=== PATIENT | female | born 1945 | race Caucasian/White ===

== ENCOUNTER 2020-05-13 08:59 | Emergency (ER) | payer MEDICARE, OTHER, SELFPAY ==
[2020-05-13] VITALS (9 sets, daily range): BP systolic 170–220; BP diastolic 78–115; PULSE 64–92; RESP 13–24; TEMP 36.5; O2SAT 91–96; BMI 27.8
--- NOTE | 2020-05-13 09:25 | PC.NURSE ---
Pt reports stroke with right side deficits 10-12 years ago, reports asymmetry of smile and pupils unequal size is baseline for her since.
--- NOTE | 2020-05-13 09:54 | ED_ITS ---
HPI - Seizure General Chief Complaint: Seizure Stated Complaint: Seizure Time Seen by Provider: 05/13/20 09:36 Source: patient and EMS Mode of arrival: EMS Limitations: no limitations History of Present Illness HPI Narrative: CC: Seizure HPI: The patient is a 75-year-old female who was admitted to the [facility] use she had a seizure at home. The patient was sitting on the edge of her bed when she had a seizure. The seizure was a tonic colonic seizure. The duration was only a couple of minutes. The patient did not fall onto the floor out of the bed. The patient states that she was sitting up ready to eat a banana and drink her coffee arm when she had the seizure. She felt it coming on. She states that she passed out. She had a seizure 1 and half weeks ago. She states that she never before had seizures until she had a stroke 13 years ago. She is on warfarin and lamotrigine. She does not have a headache or head injury. The patient states that she is paralyzed on the right side. She has had no nausea or vomiting. She takes warfarin for her stroke. She denies any chest pain or discomfort at this time. However she has a chronic pain syndrome. She is on Vicodin for a fall injuring her face in breaking her teeth. Her seizures are [place] in nature. The patient denies a history of asthma COPD myocardial infarction but admits to history of seizures stroke hypertension and diabetes mellitus. She states that she is a former smoker she rarely drinks alcohol and does not use any marijuana products. Related Data Home Medications Medication Instructions Recorded Confirmed methocarbamol PRN PRN #0 01/29/13 lamotrigine [Lamictal] 25 mg PO Q DAY #0 02/01/13 Fluoxetine Hydrochloride 20 mg PO #0 05/16/13 (FLUOXETINE) atenolol 100 mg PO #0 05/16/13 gabapentin [Neurontin] 300 mg PO #0 05/16/13 hydrocodone-acetaminophen [Vicodin #0 05/16/13 HP] insulin NPH and regular human 25 u SQ #0 05/16/13 [Novolin 70/30 U-100 Insulin] lisinopril 5 mg PO #0 05/16/13 metoprolol tartrate 25 mg PO #0 05/16/13 nitroglycerin [Nitrostat] 0.4 mg SUBLINGUAL PRN #0 05/16/13 tamsulosin [Flomax] 0.4 mg PO QDAY #0 05/16/13 triazolam [Halcion] 0.25 mg PO HS #0 05/16/13 warfarin [Coumadin] 5 mg PO #0 05/16/13 Previous Rx's Medication Instructions Recorded sulfamethoxazole-trimethoprim 1 tab PO BID #20 tab 01/04/17 cefdinir 300 mg PO BID #14 cap 05/13/20 ibuprofen 600 mg PO QID PRN #20 tab 05/13/20 lamotrigine 50 mg PO BID 14 Days #56 tab 05/13/20 Allergies Allergy/AdvReac Type Severity Reaction Status Date / Time Penicillins [PENICILLINS] Allergy Unknown Verified 05/13/20 10:26 Review of Systems Review of Systems Narrative: REVIEW OF SYSTEMS: CONSTITUTIONAL: The patient denies any fever chills or sweats. NEUROLOGICAL: She is has right hemiparesis secondary to her stroke but denies any headache. EENT: She has had no change in vision loss of vision or diplopia. She has had no sore throat difficulty in swallowing or dysphagia. CARDIO-PULMONARY: She denies any chest pain palpitations dizziness shortness of breath or cough. GASTROINTESTINAL: She denies any nausea vomiting diarrhea abdominal pain. GENITAL URINARY: She has had no urinary symptoms. MUSCULOSKELETAL/ RHEUMATOLOGICAL: She denies any back pain more than usual. Patient History Social History Smoking Status: Current every day smoker Smoking Status: Current every day smoker alcohol intake frequency: holidays/special occasions only Substance Use Type: does not use Exam Narrative Exam Narrative: PHYSICAL EXAM: CONSTITUTIONAL: Awake, Alert, Oriented, Coherent, Cooperative in NAD. Does not appear toxic or ill. Initially she appeared to be postictal which cleared and became much more awake alert and cooperative. HEAD: AT/NC EENT: PERRL, FROM of eyes, no discharge, no nystagmus EARS:No drainage from the ears, NOSE:No epistaxis or nasal drainage MOUTH:Oral mucosa is moist and pink, patient has multiple fractured and carious teeth anterior in her upper jaw. NECK: Supple, no obvious JVD, Trachea is midline without stridor, no palpable LN. SPINE: Palpationof the cervical, Thoracic, Lumbar or Sacral spine reveals no gross deformity or tenderness. No CVA tenderness. THORAX: No deformity, retractions, chest wall tenderness. LUNGS: Clear, symmetrical breath sounds without respiratory distress. HEART: Normal heart tones, irregular rhythmn and rate without murmur. ABDOMEN: Soft, non-tender, without guarding, rebound, rigidity or palpable mass. EXTREMITIES: No edema, deformity, tenderness or cyanosis. No swelling or deformity of either the right or left knee. The patient has an abrasion over the dorsal left foot over her middle left toes. SKIN: No rash, bruising, petechiae or purpura. NEURO: Awake, alert, oriented, conversive, cranial nerves II-XII are symmetrical , the patient has increased tone with decreased movement of her right arm with clenching and spasticity of her right hand and fist. The patient has increased tone in her right leg but does not move her leg. The patient has right hem iparesis secondary to her previous stroke. Initial Vital Signs Initial Vital Signs: Vital Signs Temperature 97.7 F 05/13/20 09:13 Pulse Rate 92 H 05/13/20 09:13 Respiratory Rate 14 05/13/20 09:13 Blood Pressure 184/81 H 05/13/20 09:13 Pulse Oximetry 91 05/13/20 09:13 Course Course Course Narrative: 1059: The patient's is now in the room with the patient. He states that her last seizure was 3 weeks ago. The patient is much more awake and alert at this time. She denies any headache. She states that she might have a urinary tract infection. 1131: The patient's lactic acid and urinalysis do not appear in the printout. Her chest x-ray is limited but does not reveal any acute cardiopulmonary pathology. The patient's med list listed that she is on Lamotrigine 25 mg once a day. I explained to the patient that the plan is to double that dose and see whether not a cuts down on her seizures. Everything else is coming back negative and it appears as though she has had a breakthrough seizure. Her urine is being checked for an acute urinary tract infection. 1223: The patient's point of care urinalysis does not show up in my chart under Nurse/ Allied Health. 1355: just obtained a urine. Urine drug screen is positive for opiates and positive for leukocyte esterase and numerous leukocytes. The patient will be treated as though she has an acute urinary tract infection. xray does not reveal any fractures but also T a P knee a an all stool processes. 1607: Discharging the patient with the Tello lift the patient was screaming with pain and discomfort. According to the patient and her she has chronic pain syndrome and is on a chronic pain regimen. The patient was now moving her complaining of pain in her left knee. The patient hold both knees flexed without difficulty. There is no gross swelling or bruising of either knees. Both knees were wrapped with an Tony wrap. She denies any fall injury to her knees. Orders Ordered: ED Orders 05/13/20 13:19 XR knee LT 3V Stat 05/13/20 13:30 Urinalysis and Microscopic Stat Urine Culture Stat Urine Drug Screen, Rapid Stat Discontinued Medications Bacitracin (Bacitracin) 1 applic TOP NOW ONE Stop: 05/13/20 11:34 Last Admin: 05/13/20 12:13 Dose: 1 applic Documented by: MARCELINO Cefdinir (Omnicef) 300 mg PO NOW ONE Stop: 05/13/20 14:00 Last Admin: 05/13/20 14:16 Dose: 300 mg Documented by: LUCRETIA Lamotrigine (Lamictal) 50 mg PO NOW ONE Stop: 05/13/20 14:01 Last Admin: 05/13/20 14:16 Dose: 50 mg Documented by: LUCRETIA Lorazepam (Ativan) 0.5 mg IV NOW ONE Stop: 05/13/20 09:58 Last Admin: 05/13/20 10:28 Dose: 0.5 mg Documented by: LUCRETIA Morphine Sulfate (Morphine) 2 mg IV NOW ONE Stop: 05/13/20 15:10 Last Admin: 05/13/20 15:13 Dose: 2 mg Documented by: LUCRETIA Vital Signs Vital signs: Vital Signs - 8 hr 05/13/20 13:11 05/13/20 13:46 05/13/20 15:19 Pulse Rate 75 72 74 Respiratory Rate 22 13 20 Blood Pressure [Left Arm] 195/80 H 220/91 H 194/98 H Pulse Oximetry 96 96 96 MDM - Seizure Medical Records Attestation: I reviewed the patient's medical records. Lab Data Attestation: I reviewed the patient's lab results. Result diagrams: 05/13/20 10:00 05/13/20 10:00 Labs: Lab Results 05/13/20 05/13/20 05/13/20 Range/Units 10:00 10:00 10:00 WBC 6.4 (4.5-11.0) X10^3/uL RBC 4.49 (4.0-5.2) X10^6/uL Hgb 13.0 (12.0-16.0) g/dL Hct 38.2 (36-46) % MCV 85.0 (80-100) fL MCH 28.9 (26-34) PG MCHC 34.0 (30-36) % RDW 14.6 (11.6-14.8) % Plt Count 263 (150-400) X10^3/uL Neut % (Auto) 79.8 H (50-75) % Lymph % (Auto) 13.8 L (25-40) % [place] % (Auto) 4.7 (3-14) % Eos % (Auto) 1.1 L (2-4) % Baso % (Auto) 0.6 (0-2) % Neut # (Auto) 5100 (8302-1368) /uL Lymph # (Auto) 900 L (4479-2637) /uL [place] # (Auto) 300 (0-900) /uL Eos # (Auto) 100 (0-450) /uL Baso # (Auto) 0 (0-100) /uL Sodium 138 (137-145) mmol/L Potassium 4.7 (3.4-5.1) mmol/L Chloride 100 (98-107) mmol/L Carbon Dioxide 31 (22-32) mmol/L BUN 25 H (7-17) mg/dL Creatinine 1.18 H (0.52-1.04) mg/dL Estimated GFR 44.9 L (>60) mL/min BUN/Creatinine Ratio 21.2 (6-22) Glucose 208 H (80-110) mg/dL Lactate (0.7-2.1) mmol/L Calcium 9.2 (8.4-10.2) mg/dL Magnesium 1.9 (1.6-2.3) mg/dL Total Bilirubin 0.7 (0.2-1.3) mg/dL Conjugated Bilirubin 0.0 (0.0-0.3) md/dL Unconjugated Bilirubin 0.6 (0.0-1.1) mg/dL AST 26 (14-36) IU/L ALT 21 (<35) IU/L Alkaline Phosphatase 135 H (38-126) U/L Lactate Dehydrogenase 505 (313-618) U/L Total Protein 7.3 (6.3-8.2) g/dL Albumin 4.1 (3.5-5.0) g/dL Globulin 3.2 (1.7-4.1) g/dL Albumin/Globulin Ratio 1.3 (1.0-2.8) Lipase 10 L (23-300) U/L Prolactin 25.6 H (3.0-18.6) ng/mL Urine Color Urine Appearance Urine pH (4.5-8.0) Ur Specific [place] (1.000-1.035) Urine Protein (Negative) Urine Glucose (UA) (Negative) g/dL Urine Ketones (NEGATIVE) Urine Occult Blood (Negative) Urine Nitrate (Negative) Urine Bilirubin (NEGATIVE) Urine Urobilinogen (0.2) E.U./dL Ur Leukocyte Esterase (NEGATIVE) Urine RBC (0-5/HPF) Urine WBC (0-5/HPF) Ur Squamous Epith Cells (0-5/HPF) Urine Bacteria (None) Ur Culture Indicated? U Opiates 300ng/mL cut (Negative) Ur Oxycodone Screen (Negative) Urine Methadone Screen (Negative) Ur Barbiturates Screen (Negative) U Tricyclic Antidepress (Negative) Ur Phencyclidine Scrn (Negative) Ur Amphetamines Screen (Negative) U Methamphetamines Scrn (Negative) Ur MDMA Scrn (Ecstasy) (Negative) U Benzodiazepines Scrn (Negative) Urine Cocaine Screen (Negative) U Marijuana (THC) Screen (Negative) 05/13/20 05/13/20 05/13/20 Range/Units 10:00 13:30 13:30 WBC (4.5-11.0) X10^3/uL RBC (4.0-5.2) X10^6/uL Hgb (12.0-16.0) g/dL Hct (36-46) % MCV (80-100) fL MCH (26-34) PG MCHC (30-36) % RDW (11.6-14.8) % Plt Count (150-400) X10^3/uL Neut % (Auto) (50-75) % Lymph % (Auto) (25-40) % [place] % (Auto) (3-14) % Eos % (Auto) (2-4) % Baso % (Auto) (0-2) % Neut # (Auto) (6590-1971) /uL Lymph # (Auto) (2004-4849) /uL [place] # (Auto) (0-900) /uL Eos # (Auto) (0-450) /uL Baso # (Auto) (0-100) /uL Sodium (137-145) mmol/L Potassium (3.4-5.1) mmol/L Chloride (98-107) mmol/L Carbon Dioxide (22-32) mmol/L BUN (7-17) mg/dL Creatinine (0.52-1.04) mg/dL Estimated GFR (>60) mL/min BUN/Creatinine Ratio (6-22) Glucose (80-110) mg/dL Lactate 1.7 (0.7-2.1) mmol/L Calcium (8.4-10.2) mg/dL Magnesium (1.6-2.3) mg/dL Total Bilirubin (0.2-1.3) mg/dL Conjugated Bilirubin (0.0-0.3) md/dL Unconjugated Bilirubin (0.0-1.1) mg/dL AST (14-36) IU/L ALT (<35) IU/L Alkaline Phosphatase (38-126) U/L Lactate Dehydrogenase (313-618) U/L Total Protein (6.3-8.2) g/dL Albumin (3.5-5.0) g/dL Globulin (1.7-4.1) g/dL Albumin/Globulin Ratio (1.0-2.8) Lipase (23-300) U/L Prolactin (3.0-18.6) ng/mL Urine Color Yellow Urine Appearance Sl cloudy Urine pH 7.0 (4.5-8.0) Ur Specific [place] 1.010 (1.000-1.035) Urine Protein Trace H (Negative) Urine Glucose (UA) Negative (Negative) g/dL Urine Ketones Negative (NEGATIVE) Urine Occult Blood Trace-intact (Negative) Urine Nitrate Negative (Negative) Urine Bilirubin Negative (NEGATIVE) Urine Urobilinogen 0.2 (0.2) E.U./dL Ur Leukocyte Esterase 1+ H (NEGATIVE) Urine RBC 0-1/hpf (0-5/HPF) Urine WBC 30-100/hpf H (0-5/HPF) Ur Squamous Epith Cells 0-1 /hpf (0-5/HPF) Urine Bacteria Many (>30) H (None) Ur Culture Indicated? Specimen cultured U Opiates 300ng/mL cut Positive H (Negative) Ur Oxycodone Screen Negative (Negative) Urine Methadone Screen Negative (Negative) Ur Barbiturates Screen Negative (Negative) U Tricyclic Antidepress Negative (Negative) Ur Phencyclidine Scrn Negative (Negative) Ur Amphetamines Screen Negative (Negative) U Methamphetamines Scrn Negative (Negative) Ur MDMA Scrn (Ecstasy) Negative (Negative) U Benzodiazepines Scrn Negative (Negative) Urine Cocaine Screen Negative (Negative) U Marijuana (THC) Screen Negative (Negative) Point of Care Testing Glucose POC 194 ECG Data Attestation: I personally reviewed and interpreted this ECG as follows: Interpretation: The patient's EKG obtained on May 13 at 9:36 a.m.: Reveals a normal sinus rhythm with a ventricular rate of 83. MO interval is borderline first-degree AV block with 204 milliseconds. The patient's QTC is prolonged at 542 milliseconds left axis deviation. She has left ventricular hypertrophy by voltage criteria. She has a right bundle branch block pattern with her QRS being 154 milliseconds duration. The patient has secondary ST segment changes secondary to the left ventricular hypertrophy. She has ST segment depressions in leads V2 and aVL and I. The patient has slight ST segment elevations nonspecific in leads III and AVF. There are no other acute diagnostic ST segment changes. Discharge Plan Departure Patient Disposition: Home Clinical Impression: Seizure, Knee sprain, bilateral, Chronic pain syndrome UTI (urinary tract infection) Qualifiers: Urinary tract infection type: acute cystitis Hematuria presence: without hematuria Qualified Code(s): N30.00 - Acute cystitis without hematuria Discharge Date/Time: 05/13/20 16:13 Instructions: DI for Seizure Disorder -- Adult Activity Restrictions/Additional Instructions: 1. Follow-up with your primary care physician to monitor your seizures and adjust your medications. 2. Increase your Lamotrigine to 50 mg per day 3. Take cefdinir 300 orally twice a day until gone 4. Return to the ED if you have a recurrent seizure 5. Take the vicodin you have at home for your pain three times per day. Prescriptions: New lamotrigine 25 mg tablet 50 mg PO BID 14 Days Qty: 56 RF: 0 cefdinir 300 mg capsule 300 mg PO BID Qty: 14 RF: 0 ibuprofen 600 mg tablet 600 mg PO QID PRN (Reason: pain) Qty: 20 RF: 0 No Action methocarbamol 500 MG tablet PRN PRNQty: 0 RF: 0 lamotrigine [Lamictal] 25 MG tablet 25 mg PO Q DAY Qty: 0 RF: 0 atenolol 100 MG tablet 100 mg PO Qty: 0 RF: 0 metoprolol tartrate 25 MG tablet 25 mg PO Qty: 0 RF: 0 lisinopril 5 MG tablet 5 mg PO Qty: 0 RF: 0 Fluoxetine Hydrochloride (FLUOXETINE) 20 mg PO Qty: 0 RF: 0 warfarin [Coumadin] 5 MG tablet 5 mg PO Qty: 0 RF: 0 gabapentin [Neurontin] 300 MG capsule 300 mg PO Qty: 0 RF: 0 triazolam [Halcion] 0.25 MG tablet 0.25 mg PO HS Qty: 0 RF: 0 tamsulosin [Flomax] 0.4 MG capsule,extended release 24hr 0.4 mg PO QDAY Qty: 0 RF: 0 hydrocodone-acetaminophen [Vicodin HP] 10 MG/300 MG tablet Qty: 0 RF: 0 nitroglycerin [Nitrostat] 0.4 MG tablet, sublingual 0.4 mg Sublingual PRN Qty: 0 RF: 0 insulin NPH and regular human [Novolin 70/30 U-100 Insulin] 100 UNIT/1 ML suspension 25 u SQ Qty: 0 RF: 0 sulfamethoxazole-trimethoprim 800 MG/160 MG tablet 1 tab PO BID Qty: 20 RF: 0
--- NOTE | 2020-05-13 09:59 | DI.RAD.S_ITS ---
PROCEDURE: XR CHEST 1V INDICATIONS: stroke with seizure TECHNIQUE: One view of the chest was acquired. COMPARISON: [facility], CHEST 1 VIEW, 01/29/2013, 19:16. [facility], CHEST 2 VIEW, 07/26/2012, 8:03. [facility], CHEST 1 VIEW, 01/04/2017, 9:48. FINDINGS: Surgical changes and devices: None. Lungs and pleura: On this semiupright portable chest examination, no large pneumothorax or large pleural effusions are seen. No focal infiltrates are seen. Low lung volumes are noted. This causes a crowded appearance to the lung markings and limits evaluation. Mediastinum: Mediastinal contours appear normal. Heart size is moderately enlarged. Bones and chest wall: No suspicious bony lesions. Age-appropriate bony degenerative changes are seen. Overlying soft tissues appear unremarkable. IMPRESSION: Limited portable chest examination, without a significant cardiopulmonary abnormality identified. Dictated by: Db Kinsey M.D. on 05/13/2020 at 9:36 Approved by: Db Kinsey M.D. on 05/13/2020 at 9:37
[2020-05-13 10:09] LABS: Add Manual Diff / Slide Review NO; Basophils Absolute Auto 0 /uL (0-100); Basophils Percent Auto 0.6 % (0-2); Eosinophils Absolute Auto 100 /uL (0-450); Eosinophils Percent Auto 1.1 % (2-4); Hematocrit 38.2 % (36-46); Lymphocytes Absolute Auto 900 /uL (1100-4500); Lymphocytes Percent Auto 13.8 % (25-40); Mean Corpuscular Hemoglobin 28.9 PG (26-34); Monocytes Absolute Auto 300 /uL (0-900); Monocytes Percent Auto 4.7 % (3-14); Neutrophils Absolute Auto 5100 /uL (1500-7000); Neutrophils Percent Auto 79.8 % (50-75); Platelet Count 263 X10^3/uL (150-400); Red Blood Cell Count 4.49 X10^6/uL (4.0-5.2); Red Cell Distribution Width 14.6 % (11.6-14.8); White Blood Cell Count 6.4 X10^3/uL (4.5-11.0)
[2020-05-13 10:23] LABS: BUN Creatinine Ratio 21.2 (6-22); Blood Urea Nitrogen 25 mg/dL (7-17); Calcium 9.2 mg/dL (8.4-10.2); Carbon Dioxide 31 mmol/L (22-32); Chloride 100 mmol/L (98-107); Estimated Glomerular Filt Rate 44.9 mL/min (>60); Glucose 208 mg/dL (80-110); HEMOLYSIS < 15 (0-50); Magnesium 1.9 mg/dL (1.6-2.3); Potassium 4.7 mmol/L (3.4-5.1); Sodium 138 mmol/L (137-145)
[2020-05-13 10:24] LABS: Alanine Aminotransferase 21 IU/L (<35); Albumin 4.1 g/dL (3.5-5.0); Albumin Globulin Ratio 1.3 (1.0-2.8); Alkaline Phosphatase 135 U/L (38-126); Aspartate Aminotransferase 26 IU/L (14-36); Bilirubin Total 0.7 mg/dL (0.2-1.3); Bilirubin Unconjugated 0.6 mg/dL (0.0-1.1); Globulin 3.2 g/dL (1.7-4.1); HEMOLYSIS < 15 (0-50); Lactate Dehydrogenase 505 U/L (313-618); Lipase 10 U/L (23-300); Total Protein 7.3 g/dL (6.3-8.2)
[2020-05-13 10:25] LABS: Lactate (Lactic Acid) 1.7 mmol/L (0.7-2.1)
[2020-05-13] MEDS: LORazepam 2 MG/ML INJ 0.5 MG IV (10:28)
[2020-05-13 10:40] LABS: Prolactin 25.6 ng/mL (3.0-18.6)
--- NOTE | 2020-05-13 11:34 | PC.NURSE ---
Abrasion noted , anterior aspect of left foot aprox 3 cm X 1 cm, surrounded by area of erythema. Pt states it is an old wound that I have been taking care of for a while. RN to irrigate and apply Bacitracin ointment per verbal order Dr Hardy, RBKATIE.
[2020-05-13] MEDS: BACITRACIN OINT 0.9 GM PCKT 1 APPLIC TOP (12:13)
--- NOTE | 2020-05-13 13:19 | DI.RAD.S_ITS ---
PROCEDURE: XR KNEE LT 3V INDICATIONS: stroke, seizure knee pain after seizure TECHNIQUE: 3 views of the knee were acquired. COMPARISON: [facility], , KNEE 3V RIGHT, 07/15/2015, 21:18. [facility], , KNEE 3V LEFT, 05/16/2013, 12:09. FINDINGS: Bones: No fractures or dislocations. No suspicious bony lesions. Soft tissues: Moderate suprapatellar joint effusion best seen on the lateral view. No suspicious soft tissue calcifications. IMPRESSION: Moderate suprapatellar joint effusion, which can indicate internal derangement in the setting of trauma. Depending on the clinical status followup by MRI may be warranted. Dictated by: Jaycob Smalls M.D. on 05/13/2020 at 13:27 Approved by: Jaycob Smalls M.D. on 05/13/2020 at 13:28
[2020-05-13 13:35] LABS: Appearance Urine UA SL CLOUDY; Bilirubin Urine UA NEGATIVE (NEGATIVE); Color Urine UA YELLOW; Glucose Urine UA NEGATIVE (Negative); Ketones Urine UA NEGATIVE (NEGATIVE); Leukocyte Esterase Urine UA 1+ (NEGATIVE); Nitrite Urine UA NEGATIVE (Negative); Occult Blood Urine UA TRACE-INTACT (Negative); Protein Urine UA TRACE (Negative); Urobilinogen Urine UA 0.2 E.U./dL (0.2)
[2020-05-13 13:42] LABS: UR Morphine/Opiate cutoff 300 Positive (Negative); Ur Creatinine Normal (Normal); Ur Specific Gravity Normal (Normal); Urine Amphetamines Negative (Negative); Urine Barbiturates Negative (Negative); Urine Benzodiazepines Negative (Negative); Urine Cocaine Negative (Negative); Urine MDMA Negative (Negative); Urine Methadone Negative (Negative); Urine Methamphetamines Negative (Negative); Urine Oxycodone Negative (Negative); Urine Phencyclidine Negative (Negative); Urine Tetrahydrocannabinol Negative (Negative); Urine Tricyclic Antidepressant Negative (Negative); Urine pH Normal (Normal)
[2020-05-13 13:51] LABS: Bacteria Urine Many (>30); Culture Indicated Urine Specimen Cultured; RBC Urine 0-1/HPF (0-5/HPF); Squamous Epithelial Cell Urine 0-1 /HPF (0-5/HPF); WBC Urine 30-100/HPF (0-5/HPF)
[2020-05-13] MEDS: CEFDINIR 300 MG CAPSULE PO (14:16)
[2020-05-13] MEDS: lamoTRIgine 25 MG CHEW TABLET 50 MG PO (14:16)
[2020-05-13] MEDS: MORPHINE 2 MG/ML INJ IV (15:13)
== END 2020-05-13 16:13 | disposition home or self-care (01) ==
PROVIDERS: Emergency Provider Emergency Medicine
DX: R56.9 Unspecified convulsions (principal); S83.92XA Sprain of unspecified site of left knee, initial encounter; S83.91XA Sprain of unspecified site of right knee, initial encounter; N30.00 Acute cystitis without hematuria; G89.4 Chronic pain syndrome
CPT/HCPCS: 36415; 71045; 73562; 80048; 80076; 80305; 81001; 82962; 83605; 83615; 83690; 83735; 84146; 85025; 87077; 87086; 87186; 93005; 96374; 96375; 99284; J2060; J2270

== ENCOUNTER 2021-12-14 22:31 | Observation (INO) | payer MEDICARE, OTHER, SELFPAY ==
[2021-12-14] VITALS (12 sets, daily range): BP systolic 137–169; BP diastolic 93–128; PULSE 119–159; RESP 27–43; TEMP 36.4; O2SAT 90–97
--- NOTE | 2021-12-14 22:34 | DI.RAD.S_ITS ---
PROCEDURE: XR CHEST 1V INDICATIONS: short of breath TECHNIQUE: One view of the chest was acquired. COMPARISON: [facility], CR, XR CHEST 1V, 05/13/2020, 10:04. FINDINGS: Surgical changes and devices: None. Lungs and pleura: Blunting of right costophrenic angle is noted suggestive of trace right pleural effusion. No definite focal infiltrate. No gross pneumothorax. Mediastinum: Mildly tortuous thoracic aorta is seen. Heart size is enlarged. Bones and chest wall: No suspicious bony lesions. Overlying soft tissues appear unremarkable. IMPRESSION: Cardiomegaly. Trace right pleural effusion. No focal infiltrate or pneumothorax. Dictated by: Rod Lara M.D. on 12/14/2021 at 22:51 Approved by: Rod Lara M.D. on 12/14/2021 at 22:52
[2021-12-14 22:49] LABS: Add Manual Diff / Slide Review NO; Basophils Absolute Auto 100 /uL (0-100); Basophils Percent Auto 0.9 % (0-2); Eosinophils Absolute Auto 0 /uL (0-450); Eosinophils Percent Auto 0.4 % (2-4); Hematocrit 40.8 % (36-46); Hemoglobin 13.3 g/dL (12.0-16.0); Lymphocytes Absolute Auto 1100 /uL (1100-4500); Lymphocytes Percent Auto 15.7 % (25-40); Mean Corpuscular HGB Conc 32.6 % (30-36); Mean Corpuscular Volume 82.9 fL (80-100); Monocytes Absolute Auto 400 /uL (0-900); Monocytes Percent Auto 6.4 % (3-14); Neutrophils Absolute Auto 5400 /uL (1500-7000); Neutrophils Percent Auto 76.6 % (50-75); Platelet Count 329 X10^3/uL (150-400); Red Blood Cell Count 4.92 X10^6/uL (4.0-5.2); Red Cell Distribution Width 16.9 % (11.6-14.8)
[2021-12-14 22:52] LABS: INR 1.8 (0.9-1.3); Prothrombin Time 20.1 SECONDS (10.1-12.7)
[2021-12-14] MEDS: METOPROLOL TARTRATE 5 MG/5 ML INJ IV ×3 (22:53→23:08)
[2021-12-14 22:55] LABS: PTT Partial Thromboplastin Tim 37 SECONDS (26.4-36.2)
[2021-12-14 22:57] LABS: COVID19 -Nasal RAPID Negative (Negative)
[2021-12-14 22:58] LABS: Creatine Kinase 62 U/L (30-135); Lactate (Lactic Acid) 2.1 mmol/L (0.7-2.1)
[2021-12-14 23:11] LABS: NT-proBNP (BNP-Adult 18+) 10300 pg/mL (<125); Troponin I 0.018 ng/mL (0.01-0.034)
[2021-12-14] MEDS: FUROSEMIDE 40 MG/4 ML VIAL IV (23:27)
--- NOTE | 2021-12-14 23:29 | ED.SOB ---
HPI - SOB/Dyspnea General Chief Complaint: Shortness of Breath/Dyspnea Stated Complaint: sob Time Seen by Provider: 12/14/21 22:33 Source: patient Mode of arrival: Ambulatory History of Present Illness HPI Narrative: Patient is a 76-year-old female with history of paroxysmal atrial fibrillation on Coumadin, cva with right-sided deficits presenting today with worsening shortness of breath. She says over last 2 days she has had increasing shortness of breath. She was found by EMS to be in AFib with RVR. Her current heart rate is in the 150s. She denies any orthopnea or peripheral swelling. She denies any palpitations fluttering or chest pain. She denies any fever or chills. She says she just isn't feeling quite right and more short of breath. She is wheelchair-bound. Related Data Home Medications Medication Instructions Recorded Confirmed lamotrigine 25 mg tablet (Lamictal) 50 mg PO DAILY #0 02/01/13 12/14/21 lisinopril 5 mg tablet 20 mg PO DAILY #0 05/16/13 12/14/21 metoprolol tartrate 25 mg tablet 50 mg PO DAILY #0 05/16/13 12/14/21 nitroglycerin 0.4 mg sublingual 0.4 mg SUBLINGUAL PRN PRN #0 05/16/13 12/14/21 tablet (Nitrostat) amlodipine 10 mg tablet 10 mg PO DAILY 12/14/21 12/14/21 fluoxetine 40 mg capsule 40 mg PO DAILY 12/14/21 12/14/21 hydralazine 50 mg tablet 50 mg PO DAILY 12/14/21 12/14/21 omeprazole 20 mg capsule,delayed 20 mg PO DAILY 12/14/21 12/14/21 release oxybutynin chloride 5 mg tablet 5 mg PO DAILY 12/14/21 12/14/21 warfarin 4 mg tablet 4 mg PO DAILY 12/14/21 12/14/21 hydrocodone 10 mg-acetaminophen 1 tab PO Q6H PRN 12/15/21 12/15/21 325 mg tablet Allergies Allergy/AdvReac Type Severity Reaction Status Date / Time Penicillins [PENICILLINS] Allergy Unknown Verified 12/14/21 22:39 Review of Systems Review of Systems Narrative: GENERAL: Denies chills, fatigue, malaise, fever, sweats, travel HEENT: Denies sinus pain, ear pain, sore throat, difficulty swallowing, neck pain RESPIRATORY: Denies dyspnea, cough, wheezing, hemoptysis, sputum. CARDIOVASCULAR: See HPI GASTROINTESTINAL: Denies nausea, vomiting, abdominal pain, diarrhea, constipation, melena. : Denies dysuria, frequency, incontinence, hematuria, urinary retention, flank pain. MUSCULOSKELETAL: Denies weakness, joint pain, or bony pain SKIN: No rash, no erythema, no pruritus NEUROLOGIC: Denies weakness, dizziness, headache, numbness, change in speech, confusion PSYCHIATRIC: No concerning psychosocial issues. 12 point review of systems is negative except for those stated above and HPI Patient History Social History household members: spouse Smoking Status: Current every day smoker alcohol intake: current Smoking Status: Current every day smoker alcohol intake frequency: holidays/special occasions only Substance Use Type: does not use Exam Initial Vital Signs Initial Vital Signs: Vital Signs Temperature 97.6 F 12/14/21 22:34 Pulse Rate 159 H 12/14/21 22:34 Respiratory Rate 28 H 12/14/21 22:34 Blood Pressure 169/103 H 12/14/21 22:34 Pulse Oximetry 92 12/14/21 22:34 GENERAL: Alert 76-year-old female moderate respiratory distress HEENT: Head atraumatic,EOMI, pupils reactive, face symmetric, [moist] mucous membranes CARDIOVASCULAR: Irregularly irregular tachycardic RESPIRATORY: Breath sounds equal bilaterally, no wheezes rales or rhonchi. ABDOMEN: Soft, nontender. Normoactive bowel sounds all 4 quadrants. No guarding or rebound. EXTREMITIES: Normal range of motion, no clubbing or edema. Neurovascularly intact NEUROLOGICAL: Alert oriented x4 right-sided deficits at baseline SKIN: Warm, dry, no laceration, no petechiae, no rashes or lesions. Course Orders Ordered: ED Orders 12/14/21 22:30 COVID19 -Nasal swab/Pre-Proc Stat 12/14/21 22:33 Consult to Respiratory Therapy Evaluate & Treat Blood Culture Stat 12/14/21 22:34 XR chest 1V Stat 12/14/21 22:35 CMP [Comprehensive Metabolic Panel] Stat Complete Blood Count AUTO DIFF Stat Lactate (Lactic Acid) Stat Magnesium Stat NT-proBNP (BNP-Adult 18+) Stat Partial Thromboplastin Time Stat Prothrombin Time INR Stat Troponin & CK Cardiac Panel Stat 12/14/21 22:37 EKG-12 Lead Stat Hydrocodone Bitart/Acetaminophen (Hydrocodone/Acet 10/325 Tablet) 1 tab PO Q6HR PRN PRN Reason: Pain, Moderate (4-6) Last Admin: 12/15/21 02:05 Dose: 1 tab Documented by: TOMMIE Amlodipine Besylate (Amlodipine 5 Mg Tablet) 10 mg PO DAILY [facility] Hydralazine HCl (Hydralazine 25 Mg Tablet) 50 mg PO DAILY [facility] Diltiazem HCl 125 mg/ Dextrose 125 mls @ 5 mls/hr IV TITRATE KAYLAN; Protocol Last Titration: 12/15/21 00:45 Dose: 5 mg/hr, 5 mls/hr Documented by: Admin: 12/15/21 00:00 Dose: 5 mg/hr, 5 mls/hr Documented by: CHRISTOPHER Lisinopril (Lisinopril 20 Mg Tablet) 50 mg PO DAILY [facility] Discontinued Medications Furosemide (Furosemide 40 Mg/4 Ml Vial) 40 mg IV NOW ONE Stop: 12/14/21 23:14 Last Admin: 12/14/21 23:27 Dose: 40 mg Documented by: CHRISTOPHER Metoprolol Tartrate (Metoprolol Tartrate 5 Mg/5 Ml Inj) 5 mg IV Q5M KAYLAN Stop: 12/14/21 22:56 Last Admin: 12/14/21 23:08 Dose: 5 mg Documented by: Admin: 12/14/21 23:00 Dose: 5 mg Documented by: Admin: 12/14/21 22:53 Dose: 5 mg Documented by: KENYETTA Vital Signs Vital signs: Vital Signs - 8 hr 12/14/21 22:34 12/14/21 22:44 12/14/21 22:53 Temperature 97.6 F Pulse Rate 159 H 150 H 157 H Respiratory Rate 28 H 35 H 36 H Blood Pressure 169/103 H 154/128 H Pulse Oximetry 92 95 95 12/14/21 22:55 12/14/21 23:00 12/14/21 23:01 Temperature Pulse Rate 150 H 137 H 133 H Respiratory Rate 29 H 36 H 37 H Blood Pressure 161/124 H 166/114 H Pulse Oximetry 95 12/14/21 23:06 12/14/21 23:10 12/14/21 23:15 Temperature Pulse Rate 133 H 129 H 127 H Respiratory Rate 27 H 28 H 31 H Blood Pressure 149/93 H 146/112 H 160/109 H Pulse Oximetry 90 L 95 12/14/21 23:28 12/14/21 23:30 12/14/21 23:46 Temperature Pulse Rate 128 H 119 H 127 H Respiratory Rate 33 H 36 H 43 H Blood Pressure 154/102 H 140/106 H 137/104 H Pulse Oximetry 96 96 97 12/15/21 00:00 12/15/21 00:15 12/15/21 00:30 Temperature Pulse Rate 127 H 125 H 120 H Respiratory Rate 37 H 30 H 35 H Blood Pressure 145/111 H 145/116 H Pulse Oximetry 97 95 96 MDM - SOB/Dyspnea Lab Data Result diagrams: 12/14/21 22:35 12/14/21 22:35 Labs: Lab Results 12/14/21 12/14/21 12/14/21 Range/Units 22:30 22:35 22:35 WBC 7.0 (4.5-11.0) X10^3/uL RBC 4.92 (4.0-5.2) X10^6/uL Hgb 13.3 (12.0-16.0) g/dL Hct 40.8 (36-46) % MCV 82.9 (80-100) fL MCH 27.0 (26-34) PG MCHC 32.6 (30-36) % RDW 16.9 H (11.6-14.8) % Plt Count 329 (150-400) X10^3/uL Neut % (Auto) 76.6 H (50-75) % Lymph % (Auto) 15.7 L (25-40) % [place] % (Auto) 6.4 (3-14) % Eos % (Auto) 0.4 L (2-4) % Baso % (Auto) 0.9 (0-2) % Neut # (Auto) 5400 (1191-4356) /uL Lymph # (Auto) 1100 (0229-8699) /uL [place] # (Auto) 400 (0-900) /uL Eos # (Auto) 0 (0-450) /uL Baso # (Auto) 100 (0-100) /uL PT 20.1 H (10.1-12.7) SECONDS INR 1.8 H (0.9-1.3) APTT 37 H (26.4-36.2) SECONDS Sodium (137-145) mmol/L Potassium (3.4-5.1) mmol/L Chloride (98-107) mmol/L Carbon Dioxide (22-32) mmol/L BUN (7-17) mg/dL Creatinine (0.52-1.04) mg/dL Estimated GFR (>60) mL/min BUN/Creatinine Ratio (6-22) Glucose (80-110) mg/dL Lactate (0.7-2.1) mmol/L Calcium (8.4-10.2) mg/dL Magnesium (1.6-2.3) mg/dL Total Bilirubin (0.2-1.3) mg/dL AST (14-36) IU/L ALT (<35) IU/L Alkaline Phosphatase (38-126) U/L Total Creatine Kinase (30-135) U/L CK-MB (CK-2) CK-MB (CK-2) Rel Index Troponin I (0.01-0.034) ng/mL NT-Pro-B Natriuret Pep (<125) pg/mL Total Protein (6.3-8.2) g/dL Albumin (3.5-5.0) g/dL Globulin (1.7-4.1) g/dL Albumin/Globulin Ratio (1.0-2.8) SARS-CoV-2 (PCR) Negative (Negative) 12/14/21 12/14/21 12/14/21 Range/Units 22:35 22:35 22:35 WBC (4.5-11.0) X10^3/uL RBC (4.0-5.2) X10^6/uL Hgb (12.0-16.0) g/dL Hct (36-46) % MCV (80-100) fL MCH (26-34) PG MCHC (30-36) % RDW (11.6-14.8) % Plt Count (150-400) X10^3/uL Neut % (Auto) (50-75) % Lymph % (Auto) (25-40) % [place] % (Auto) (3-14) % Eos % (Auto) (2-4) % Baso % (Auto) (0-2) % Neut # (Auto) (9882-4809) /uL Lymph # (Auto) (7095-3654) /uL [place] # (Auto) (0-900) /uL Eos # (Auto) (0-450) /uL Baso # (Auto) (0-100) /uL PT (10.1-12.7) SECONDS INR (0.9-1.3) APTT (26.4-36.2) SECONDS Sodium 138 (137-145) mmol/L Potassium 4.3 (3.4-5.1) mmol/L Chloride 106 (98-107) mmol/L Carbon Dioxide 24 (22-32) mmol/L BUN 25 H (7-17) mg/dL Creatinine 1.03 (0.52-1.04) mg/dL Estimated GFR 52.4 L (>60) mL/min BUN/Creatinine Ratio 24.3 H (6-22) Glucose 207 H (80-110) mg/dL Lactate 2.1 (0.7-2.1) mmol/L Calcium 9.4 (8.4-10.2) mg/dL Magnesium 2.0 (1.6-2.3) mg/dL Total Bilirubin 1.7 H (0.2-1.3) mg/dL AST 35 (14-36) IU/L ALT 24 (<35) IU/L Alkaline Phosphatase 153 H (38-126) U/L Total Creatine Kinase 62 (30-135) U/L CK-MB (CK-2) TNP CK-MB (CK-2) Rel Index TNP Troponin I 0.018 (0.01-0.034) ng/mL NT-Pro-B Natriuret Pep 76080 H (<125) pg/mL Total Protein 7.7 (6.3-8.2) g/dL Albumin 4.2 (3.5-5.0) g/dL Globulin 3.5 (1.7-4.1) g/dL Albumin/Globulin Ratio 1.2 (1.0-2.8) SARS-CoV-2 (PCR) (Negative) Imaging Data Chest x-ray: Radiologist's Impression: PROCEDURE:? XR CHEST 1V ? INDICATIONS:? short of breath ? TECHNIQUE:? One view of the chest was acquired.? ? COMPARISON:? [facility], CR, XR CHEST 1V, 05/13/2020, 10:04. ? FINDINGS:? ? Surgical changes and devices:? None.? ? Lungs and pleura:? Blunting of right costophrenic angle is noted suggestive of trace right pleural effusion.? No definite focal infiltrate.? No gross pneumothorax. ? Mediastinum:? Mildly tortuous thoracic aorta is seen.? Heart size is enlarged.? ? Bones and chest wall:? No suspicious bony lesions.? Overlying soft tissues appear unremarkable.? ? IMPRESSION:? Cardiomegaly.? Trace right pleural effusion.? No focal infiltrate or pneumothorax. ? ? Dictated by: Rod Lara M.D. on 12/14/2021 at 22:51 ? ECG Data Interpretation: Atrial fibrillation rate [address] changes, with right bundle-branch block MDM Narrative Medical decision making narrative: The patient has paroxysmal atrial fibrillation usually controlled on beta-danial and Coumadin. Today she asymptomatic with AFib with RVR Coumadin is subtherapeutic not a candidate for cardioversion. She is also [place] [address] She is given Lasix in the emergency department along with Lopressor to help control heart rate which does work. In placed on diltiazem drip Dr. Christina updated on patient's symptoms test results and accepts patient Discharge Plan Departure Patient Disposition: Admitted As Inpatient Clinical Impression: Atrial fibrillation with rapid ventricular response, Acute exacerbation of CHF (congestive heart failure) Admit Date/Time: 12/15/21 00:36 Admit Provider: Johana Christina
[2021-12-14 23:39] LABS: Alanine Aminotransferase 24 IU/L (<35); Albumin 4.2 g/dL (3.5-5.0); Albumin Globulin Ratio 1.2 (1.0-2.8); Alkaline Phosphatase 153 U/L (38-126); Aspartate Aminotransferase 35 IU/L (14-36); BUN Creatinine Ratio 24.3 (6-22); Bilirubin Total 1.7 mg/dL (0.2-1.3); Blood Urea Nitrogen 25 mg/dL (7-17); Calcium 9.4 mg/dL (8.4-10.2); Carbon Dioxide 24 mmol/L (22-32); Chloride 106 mmol/L (98-107); Estimated Glomerular Filt Rate 52.4 mL/min (>60); Globulin 3.5 g/dL (1.7-4.1); Glucose 207 mg/dL (80-110); HEMOLYSIS < 15 (0-50); Potassium 4.3 mmol/L (3.4-5.1); Sodium 138 mmol/L (137-145); Total Protein 7.7 g/dL (6.3-8.2)
[2021-12-15] VITALS (42 sets, daily range): BP systolic 104–220; BP diastolic 55–164; PULSE 74–127; RESP 17–46; TEMP 36.3–37.1; O2SAT 91–97; BMI 28.9
[2021-12-15] MEDS: dilTIAZem 125 MG in DEXTROSE 5 % IN WATER 100 ML IV
[2021-12-15 00:42] LABS: Reflexed Lactate in 2 Hours Y
[2021-12-15 01:24] LABS: Lactate 2HR (Lactic Acid Rflx) 2.7 mmol/L (0.7-2.1)
[2021-12-15] MEDS: HYDROCODONE/ACET 10/325 TABLET 1 TAB PO ×3 (02:05→16:15)
--- NOTE | 2021-12-15 02:18 | PC.NURSE ---
Addendum entered by Xenia Rodriguez R.N. 12/15/21 03:24: 0315- Patient hypertensive. Dr. Christina notified and orders received. Will monitor. Original Note: 0035- Patient admitted to room 227. Patient has Right Side contracture/weakness from a stroke many years ago. Heart rate on admit 120's. Diltiazem gtt infusing per order. Patient is alert and oriented. Rodriguez Catheter inserted per orders, cloudy yellow urine present. UA ordered and sent. Dr. Christina notified of admission orders received. Patient oriented to her room. Stable at the time of admit.
[2021-12-15 02:20] LABS: Appearance Urine UA CLOUDY; Bilirubin Urine UA NEGATIVE (NEGATIVE); Glucose Urine UA TRACE g/dL (Negative); Ketones Urine UA NEGATIVE (NEGATIVE); Leukocyte Esterase Urine UA 3+ (NEGATIVE); Nitrite Urine UA NEGATIVE (Negative); Occult Blood Urine UA 2+ (Negative); Protein Urine UA TRACE (Negative); Urobilinogen Urine UA 0.2 E.U./dL (0.2)
[2021-12-15 02:27] LABS: Color Urine UA Straw; pH Urine UA 5.5 (4.5-8.0)
[2021-12-15 02:28] LABS: RBC Urine 0-1/HPF (0-5/HPF)
[2021-12-15 02:29] LABS: Bacteria Urine Many (>30); Culture Indicated Urine Specimen Cultured; Squamous Epithelial Cell Urine 1-5 /HPF (0-5/HPF); WBC Urine >100/HPF (0-5/HPF)
[2021-12-15] MEDS: HYDRALAZINE 25 MG TABLET 50 MG PO (03:20)
[2021-12-15] MEDS: lisinopriL 20 MG TABLET 50 MG PO (03:21)
[2021-12-15] MEDS: AMLODIPINE 5 MG TABLET 10 MG PO ×2 (03:21→09:14)
--- NOTE | 2021-12-15 06:02 | PM.HP.1 ---
History of Present Illness History of Present Illness Date Patient Seen: 12/15/21 Time Patient Seen: 06:03 Chief complaint: SOB Narrative: This is a 76 year old female with a history of stroke causing right-sided hemineglect and hemiparesis, congestive heart failure, atrial fibrillation, diabetes mellitus, ventricular tachycardia, seizures who came to the emergency department last night with 2 days of worsening shortness of breath. She was found to be in atrial fibrillation with rapid ventricular response which has responded well to Lopressor and eventually a diltiazem drip. [place]NP [place] [address] so she was treated with Lasix in the emergency department and is breathing better now. Her heart rate is now in the 80s. Her chest x-ray showed a trace right pleural effusion without evidence for pulmonary edema. Her lactic acid level, after the diuresis, has risen from 1.7 up to 2.7. Her BUN is 25 with a creatinine of 1.03 and normal electrolytes. When I see her she is very confused, claiming that I am her son, and is very challenging to gain any insight or answers to questions as she is quite internally distracted, right yuriy-neglect full and appears to have some vascular dementia. She apparently lives with her in their own home but additional information is not forthcoming. Her blood sugar is 209. She will need an A1c and an echocardiogram as those do not appear to been checked recently. She also is listed as being on an unknown dose of NPH at home. We will be covering that with a correctional scale for now. Patient History Medical History (Updated 12/15/21 @ 07:30 by Johana Christina MD) Acute exacerbation of CHF (congestive heart failure) Atrial fibrillation with rapid ventricular response Diabetes mellitus type 2 Ischemic stroke Seizure UTI (urinary tract infection) Ventricular tachycardia (paroxysmal) Family & Social History Social History: household members spouse Prior Living Arrangements House Safety & Behavioral: Feels Safe in Current Yes Environment Been Physically Hurt or No Threatened By a Person Suicidal Ideation Description None Suicide Plan Description No Plan Tobacco & Substance use: Tobacco type cigarettes Smoking Status Current every day smoker Smoking packs per day 1 alcohol intake current alcohol intake frequency holiday/special occasion Substance Use Type does not use Comment: Her backup decision maker is her . She is unable to discuss his name or any other historical facts at this time. 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 Meds Home Medications and Allergies Home Medications Medication Instructions Recorded Confirmed Type lamotrigine 25 mg tablet (Lamictal) 50 mg PO DAILY #0 02/01/13 12/14/21 History lisinopril 5 mg tablet 20 mg PO DAILY #0 05/16/13 12/14/21 History metoprolol tartrate 25 mg tablet 50 mg PO DAILY #0 05/16/13 12/14/21 History nitroglycerin 0.4 mg sublingual 0.4 mg SUBLINGUAL PRN PRN #0 05/16/13 12/14/21 History tablet (Nitrostat) amlodipine 10 mg tablet 10 mg PO DAILY 12/14/21 12/14/21 History fluoxetine 40 mg capsule 40 mg PO DAILY 12/14/21 12/14/21 History hydralazine 50 mg tablet 50 mg PO DAILY 12/14/21 12/14/21 History omeprazole 20 mg capsule,delayed 20 mg PO DAILY 12/14/21 12/14/21 History release oxybutynin chloride 5 mg tablet 5 mg PO DAILY 12/14/21 12/14/21 History warfarin 4 mg tablet 4 mg PO DAILY 12/14/21 12/14/21 History hydrocodone 10 mg-acetaminophen 1 tab PO Q6H PRN 12/15/21 12/15/21 History 325 mg tablet insulin human U-100 NPH-regulr 25 unit SUBCUT DAILY 12/15/21 12/15/21 History 70-30 mix 100 unit/mL subcutaneous susp (Novolin 70/30 U-100 Insulin) Allergies Allergy/AdvReac Type Severity Reaction Status Date / Time Penicillins [PENICILLINS] Allergy Unknown Verified 12/14/21 22:39 Review of Systems Review of Systems Narrative: Positive for shortness of breath and confusion. She also has scratch gonzalez and picking gonzalez in various stages of healing on her legs that she attributes to shingles. Negative for fevers, chills, sweats, coughing, chest pain, nausea, vomiting, abdominal pain, seizures, rashes, sore throat, headache, bleeding. Exam Vital Signs (past 8 hours): - 12/14/21 22:34 12/14/21 22:44 12/14/21 22:53 Temperature 97.6 F Pulse Rate 159 H 150 H 157 H Respiratory Rate 28 H 35 H 36 H Blood Pressure 169/103 H 154/128 H Pulse Oximetry 92 95 95 12/14/21 22:55 12/14/21 23:00 12/14/21 23:01 Temperature Pulse Rate 150 H 137 H 133 H Respiratory Rate 29 H 36 H 37 H Blood Pressure 161/124 H 166/114 H Pulse Oximetry 95 12/14/21 23:06 12/14/21 23:10 12/14/21 23:15 Temperature Pulse Rate 133 H 129 H 127 H Respiratory Rate 27 H 28 H 31 H Blood Pressure 149/93 H 146/112 H 160/109 H Pulse Oximetry 90 L 95 12/14/21 23:28 12/14/21 23:30 12/14/21 23:46 Temperature Pulse Rate 128 H 119 H 127 H Respiratory Rate 33 H 36 H 43 H Blood Pressure 154/102 H 140/106 H 137/104 H Pulse Oximetry 96 96 97 12/15/21 00:00 12/15/21 00:15 12/15/21 00:30 Temperature Pulse Rate 127 H 125 H 120 H Respiratory Rate 37 H 30 H 35 H Blood Pressure 145/111 H 145/116 H Pulse Oximetry 97 95 96 12/15/21 00:49 12/15/21 01:58 12/15/21 02:00 Temperature 97.3 F L Pulse Rate 116 H 79 82 Respiratory Rate 22 36 H 23 Blood Pressure 135/85 173/117 H Pulse Oximetry 97 12/15/21 02:08 12/15/21 02:16 12/15/21 02:30 Temperature Pulse Rate 85 88 102 H Respiratory Rate 27 H 39 H 39 H Blood Pressure 146/91 H 168/106 H 208/94 H Pulse Oximetry 12/15/21 02:35 12/15/21 02:45 12/15/21 03:00 Temperature Pulse Rate 91 H 82 84 Respiratory Rate 40 H 43 H 25 H Blood Pressure 213/84 H 174/101 H 148/97 H Pulse Oximetry 12/15/21 03:17 12/15/21 03:20 12/15/21 03:21 Temperature Pulse Rate 97 H Respiratory Rate 34 H Blood Pressure 133/102 H 133/102 H 133/102 H Pulse Oximetry 12/15/21 03:30 12/15/21 03:31 12/15/21 03:33 Temperature Pulse Rate 115 H 100 H 89 Respiratory Rate 46 H 30 H 45 H Blood Pressure 220/141 H 213/164 H Pulse Oximetry 12/15/21 03:37 12/15/21 03:45 12/15/21 04:00 Temperature Pulse Rate 90 85 82 Respiratory Rate 24 34 H 24 Blood Pressure 140/106 H 136/113 H Pulse Oximetry 12/15/21 04:01 12/15/21 04:06 12/15/21 04:15 Temperature Pulse Rate 80 80 Respiratory Rate 22 25 H Blood Pressure 111/68 111/68 129/80 Pulse Oximetry 12/15/21 04:30 12/15/21 04:45 12/15/21 05:00 Temperature Pulse Rate 83 78 88 Respiratory Rate 26 H 26 H 20 Blood Pressure 104/76 131/84 126/90 Pulse Oximetry 12/15/21 05:15 12/15/21 05:30 12/15/21 05:45 Temperature Pulse Rate 85 74 88 Respiratory Rate 26 H 28 H 26 H Blood Pressure 122/62 104/55 L 118/60 Pulse Oximetry Oxygen Delivery Method Nasal Cannula Oxygen Flow Rate 2 Narrative Exam Narrative: The patient is alert and oriented to her name. No apparent distress She says several times that she recognizes me as her son and is not easily convinced otherwise. She will not keep her eyes open for a pupil exam. She will not open her mouth for a throat exam No lymph nodes are felt head, neck, supraclavicular area There is no thyromegaly JVD is less than 6 cm No carotid bruits are heard Heart is irregularly irregular without murmur Lungs are clear to auscultation bilaterally Abdomen is soft, bowel sounds positive, nontender, no organomegaly Skin has no rash or jaundice. She has picking scars and fresh gonzalez on her legs but none on her arms or torso. She refers to this as shingles but that is not the appearance. Neurological exam: Significant right hemineglect. Significant right hemiparesis with disfigured contractures of her foot and hand. No tremor Cranial nerves cannot be accurately tested due to her lack of understanding and cooperation. Reflexes appear symmetric. Objective Labs Result Diagrams: 12/14/21 22:35 12/14/21 22:35 Labs: Laboratory Results - last 24 hr 12/14/21 12/14/21 12/14/21 22:30 22:35 22:35 WBC 7.0 RBC 4.92 Hgb 13.3 Hct 40.8 MCV 82.9 MCH 27.0 MCHC 32.6 RDW 16.9 H Plt Count 329 Neut % (Auto) 76.6 H Lymph % (Auto) 15.7 L [place] % (Auto) 6.4 Eos % (Auto) 0.4 L Baso % (Auto) 0.9 Neut # (Auto) 5400 Lymph # (Auto) 1100 [place] # (Auto) 400 Eos # (Auto) 0 Baso # (Auto) 100 PT 20.1 H INR 1.8 H APTT 37 H Sodium Potassium Chloride Carbon Dioxide BUN Creatinine Estimated GFR BUN/Creatinine Ratio Glucose Lactate Calcium Magnesium Total Bilirubin AST ALT Alkaline Phosphatase Total Creatine Kinase CK-MB (CK-2) CK-MB (CK-2) Rel Index Troponin I NT-Pro-B Natriuret Pep Total Protein Albumin Globulin Albumin/Globulin Ratio Urine Color Urine Appearance Urine pH Ur Specific [place] Urine Protein Urine Glucose (UA) Urine Ketones Urine Occult Blood Urine Nitrate Urine Bilirubin Urine Urobilinogen Ur Leukocyte Esterase Urine RBC Urine WBC Ur Squamous Epith Cells Urine Bacteria Ur Culture Indicated? Nasal Screen MRSA (PCR) SARS-CoV-2 (PCR) Negative 12/14/21 12/14/21 12/14/21 22:35 22:35 22:35 WBC RBC Hgb Hct MCV MCH MCHC RDW Plt Count Neut % (Auto) Lymph % (Auto) [place] % (Auto) Eos % (Auto) Baso % (Auto) Neut # (Auto) Lymph # (Auto) [place] # (Auto) Eos # (Auto) Baso # (Auto) PT INR APTT Sodium 138 Potassium 4.3 Chloride 106 Carbon Dioxide 24 BUN 25 H Creatinine 1.03 Estimated GFR 52.4 L BUN/Creatinine Ratio 24.3 H Glucose 207 H Lactate 2.1 Calcium 9.4 Magnesium 2.0 Total Bilirubin 1.7 H AST 35 ALT 24 Alkaline Phosphatase 153 H Total Creatine Kinase 62 CK-MB (CK-2) TNP CK-MB (CK-2) Rel Index TNP Troponin I 0.018 NT-Pro-B Natriuret Pep 89790 H Total Protein 7.7 Albumin 4.2 Globulin 3.5 Albumin/Globulin Ratio 1.2 Urine Color Urine Appearance Urine pH Ur Specific [place] Urine Protein Urine Glucose (UA) Urine Ketones Urine Occult Blood Urine Nitrate Urine Bilirubin Urine Urobilinogen Ur Leukocyte Esterase Urine RBC Urine WBC Ur Squamous Epith Cells Urine Bacteria Ur Culture Indicated? Nasal Screen MRSA (PCR) SARS-CoV-2 (PCR) 12/15/21 12/15/21 12/15/21 01:05 02:00 02:00 WBC RBC Hgb Hct MCV MCH MCHC RDW Plt Count Neut % (Auto) Lymph % (Auto) [place] % (Auto) Eos % (Auto) Baso % (Auto) Neut # (Auto) Lymph # (Auto) [place] # (Auto) Eos # (Auto) Baso # (Auto) PT INR APTT Sodium Potassium Chloride Carbon Dioxide BUN Creatinine Estimated GFR BUN/Creatinine Ratio Glucose Lactate 2.7 H Calcium Magnesium Total Bilirubin AST ALT Alkaline Phosphatase Total Creatine Kinase CK-MB (CK-2) CK-MB (CK-2) Rel Index Troponin I NT-Pro-B Natriuret Pep Total Protein Albumin Globulin Albumin/Globulin Ratio Urine Color Straw Urine Appearance Cloudy Urine pH 5.5 Ur Specific Mobile 1.010 Urine Protein Trace H Urine Glucose (UA) Trace H Urine Ketones Negative Urine Occult Blood 2+ H Urine Nitrate Negative Urine Bilirubin Negative Urine Urobilinogen 0.2 Ur Leukocyte Esterase 3+ H Urine RBC 0-1/hpf Urine WBC >100/hpf H Ur Squamous Epith Cells 1-5 /hpf Urine Bacteria Many (>30) H Ur Culture Indicated? Specimen cultured Nasal Screen MRSA (PCR) Negative for mrsa SARS-CoV-2 (PCR) Assessment & Plan Assessment & Plan narrative: This is a 76-year-old female with history of diabetes mellitus, congestive heart failure, atrial fibrillation, stroke with right hemiparesis, seizures who now presents with 2 days of shortness of breath, found to be in atrial fibrillation with rapid ventricular response. Atrial fibrillation with rapid ventricular response, present on admission. Active. -heart rate in the 150 range has responded to initial dosing of Lopressor and IV diltiazem drip. Currently on 5 milligrams/hour. -check echocardiogram and TSH -continue metoprolol and amlodipine. Consider transition from amlodipine to diltiazem. -Continue Warfarin (INR 1.8 on admission). Dose per pharmacy. Congestive heart failure with small left pleural effusion, present on admission. Active. -Troponin 0.018, follow -Lasix IV in the emergency department along with rate control improved her dyspnea. -the CHF exacerbation is likely related to the rapid ventricular response and whatever triggered her atrial fibrillation. -echocardiogram to clarify current cardiac function Diabetes mellitus type 2, present on admission. Active. -unclear home NPH 70/30 dose. Check A1c -medium dose lispro correctional scale and follow blood sugars Right hemiparesis/right hemineglect, present on admission. Chronic. -continue risk factor control -PT eval Hypertension, present on admission. Chronic -Amlodipine and Metoprolol Seizures, present on admission. Chronic. -Lamotrigine Depression, present on admission. Chronic. -Fluoxetine DVT prevention with Warfarin. Time Spent With Patient Critical Care time: I spent a total of [] minutes of critical care time on this patient's care today; this time is exclusive of procedural time.
--- NOTE | 2021-12-15 07:31 | DI.ECHO.S_ITS ---
[place] [facility]---------+ [facility] +---------+ : : [address] : : : : [id number] : : : : Phone: [phone] Echocardiogram Report + + :Name: TANA LAY Study Date: 12/15/2021 Height: 70 in : :[facility] ReadingLocation: Weight: 201 lb : : Gender: Female BSA: 2.1 m2 : :: 1945 Age: 76 yrs BP: 126/69 mmHg: :Reason For Study: ATRIAL FIBRILLATION : :Ordering Physician: OZ, : :GERALD Orr Performed By: Nusrat Nichols : :Referring: GERALD CLINTON : + + Interpretation Summary The left ventricle is normal in size and wall thickness. Left ventricular systolic function is moderately reduced. The ejection fraction is estimated to be 30-35%. Left ventricular function has significantly worsened compared to the previous exam. There is hyypokinesis along the inferior, basal inferoseptal, and inferolateral segments. These are new LV wall motion abnormalities. Diastolic function could not be accurately assessed due to atrial fibrillation. The right ventricle is normal size. Right ventricular systolic function is borderline reduced. The right ventricular systolic pressure is estimated to be at least 37 mmHg based on an estimated right atrial pressure of 8 mm Hg. The left atrium is severely dilated. The right atrium is severely dilated. There is moderate mitral regurgitation. There is moderate tricuspid regurgitation. There is no other significant valvular heart disease. The aortic root is normal size. Procedure: A two-dimensional transthoracic echocardiogram with color flow and Doppler was performed. The study quality was technically adequate. Comparison is made with the echocardiogram of 01/05/2017. The patient was in atrial fibrillation with heart rates between 77-96 bpm during the exam. Left Ventricle: The left ventricle is normal in size and wall thickness. Left ventricular systolic function is moderately reduced. The ejection fraction is estimated to be 30-35%. Left ventricular function has significantly worsened compared to the previous exam. There is hyypokinesis along the inferior, basal inferoseptal, and inferolateral segments. These are new LV wall motion abnormalities. Diastolic function could not be accurately assessed due to atrial fibrillation. Right Ventricle: The right ventricle is normal size. Right ventricular systolic function is borderline reduced. Atria: The left atrium is severely dilated. The right atrium is severely dilated. There is no Doppler evidence for an interatrial shunt. Mitral Valve: There is mild mitral annular calcification. The mitral valve leaflets are mildly calcified. There is moderate mitral regurgitation. Aortic Valve: The aortic valve is trileaflet. The aortic valve opens well. There is no aortic valve stenosis. No aortic regurgitation is present. Tricuspid Valve: The tricuspid valve leaflets are thin and pliable. There is moderate tricuspid regurgitation. The right ventricular systolic pressure is estimated to be at least 37 mmHg based on an estimated right atrial pressure of 8 mm Hg. Pulmonic Valve: The pulmonic valve leaflets are thin and pliable; valve motion is normal. There is mild pulmonic regurgitation. There is no other significant valvular heart disease. Great Vessels: The aortic root is normal size. The ascending aorta is at the upper limits of normal in size. The IVC is dilated (diameter is greater than 2.1 cm) yet it collapses greater than 50% with a sniff. This suggests a right atrial pressure of 8 mm Hg. Pericardium/ Pleura There is no pericardial effusion. There is no pleural effusion. MMode/2D Measurements & Calculations LVIDd: 4.3 cm LVOT diam: 2.0 cm LVIDs: 3.6 cm Ao root diam: 3.1 cm FS: 16.0 % asc Aorta Diam: 3.5 cm IVSd: 0.94 cm Ao Arch Diam (Prox Trans): 3.4 cm LVPWd: 1.0 cm LV hartman. diameter/BSA (cm/m^2): 2.0 LV sys. diameter/BSA (cm/m^2): 1.7 LA A2 area: 30.3 cm2 RA long axis: 6.4 cm LA A4 area: 31.6 cm2 RA area: 29.1 cm2 LA length (vol): 7.0 cm RA vol: 112.2 ml LA vol: 115.9 ml RA : 53.6 ml/m2 LA vol index: 55.4 ml/m2 IVC diam: 2.9 cm RVD1 (basal): 3.5 cm TAPSE: 1.6 cm Doppler Measurements & Calculations Ao V2 max: 111.1 cm/sec LVOT Max Ector: 61.6 cm/sec Ao V2 mean: 78.6 cm/sec LV V1 max P.5 mmHg Ao max P.0 mmHg LV V1 VTI: 10.7 cm Ao mean P.8 mmHg JONNY(I,D): 1.6 cm2 Ao V2 VTI: 20.7 cm JONNY(V,D): 1.7 cm2 sev ratio: 0.51 JONNY indexed to BSA (cm^2/m^2): 0.77 MV E max ector: 107.1 cm/sec TR max ecotr: 270.5 cm/sec MV A max ector: 2.7 cm/sec TR max P.3 mmHg MV E/A: 39.7 PA V2 max: 75.1 cm/sec Med Peak E' Ector: 3.6 cm/sec PA V2 mean: 53.6 cm/sec E/E' med: 29.6 PA mean P.3 mmHg Lat Peak E' Ector: 8.1 cm/sec PA pr(Accel): 48.2 mmHg E/E' lat: 13.3 E/e' average: 21.5 MV dec time: 0.17 sec MR ERO: 0.17 cm2 MR PISA: 2.2 cm2 SV(LVOT): 33.2 ml MR flow rate: 91.8 cm3/sec MR PISA radius: 0.59 cm Reading Physician:02:35 PM
[2021-12-15] MEDS: FLUoxetine 20 MG CAPSULE 40 MG PO (09:14)
[2021-12-15] MEDS: levoFLOXacin 500 MG/100 ML PIGGYBACK 100 MG IV (09:14)
[2021-12-15] MEDS: PANTOPRAZOLE DR 20 MG TABLET PO (09:14)
[2021-12-15] MEDS: lisinopriL 5 MG TABLET 20 MG PO (09:14)
[2021-12-15] MEDS: FUROSEMIDE 40 MG/4 ML VIAL IV (09:15)
[2021-12-15] MEDS: INSULIN NPH/REG 70-30 100 UNIT/ML 3ML VIAL 25 UNIT SUBCUT (09:16)
[2021-12-15] MEDS: lamoTRIgine 100 MG TABLET 50 MG PO (09:24)
[2021-12-15] MEDS: OXYBUTYNIN 5 MG TABLET PO (09:24)
[2021-12-15 09:30] LABS: Blood Urea Nitrogen 24 mg/dL (7-17); Calcium 8.9 mg/dL (8.4-10.2); Carbon Dioxide 30 mmol/L (22-32); Chloride 101 mmol/L (98-107); Estimated Glomerular Filt Rate 49.1 mL/min (>60); Glucose 207 mg/dL (80-110); HEMOLYSIS < 15 (0-50); Hemoglobin A1C% w Est Avg Glu 8.1 % (4.0-6.0); Magnesium 1.7 mg/dL (1.6-2.3); Potassium 3.4 mmol/L (3.4-5.1); Sodium 137 mmol/L (137-145)
[2021-12-15] MEDS: METOPROLOL ER 50 MG TABLET PO ×2 (09:41→20:44)
[2021-12-15 09:45] LABS: Troponin I 0.036 ng/mL (0.01-0.034)
[2021-12-15 10:10] LABS: Thyroid Stimulating Hormone 0.506 uIU/mL (0.47-4.68)
--- NOTE | 2021-12-15 10:32 | PT-IP ANOTE ---
Checked on pt and obtained PLOF/home set up. Pt lives with her spouse but family also comes in to assist her. pt lives on a one level house with a ramp to enter. Pt is w/c bound and transfers using a smita lift. Pt is non-ambulatory and family assists pt with transfers and other ADL needs. Informed pt regarding PT and agreed that no PT needs at this time and pt wants to continue with use of smita lift for transfers and use of w/c for mobility. pt also has a power w/c but pt stated that she is more comfortable using her manual w/c. Informed nurse regarding pt's mobility and PT eval will be discharged. No PT intervention indicated at this time.
--- NOTE | 2021-12-15 10:48 | CM.DANOTE ---
Addendum entered by Mendy Shaffer R.N. 12/15/21 14:20: Was able to reach patient's , Dav on his cell phone. He indicated that he already had spoken to [facility], and confirmed the ragland and set up payment. Let him know that this space planner will call [facility] back and confirm fern picker for 11:00am tomorrow. Had briefly mentioned this to hospitalist, he had not yet seen patient. Will then just need resumption orders. Addendum entered by Mendy Shaffer R.N. 12/15/21 13:14: Spoke to Debbie at [facility]. She indicated that patient is currently under their services for nursing, and a bath aide. She indicated, she is a hoier at home, so PT is not seeing her. She mentioned that MAINTENANCE SHOP LABORER went to the home on 12-02, and discussed resources with and VA benefits, since he is disabled vet. Stated that when MAINTENANCE SHOP LABORER went into the home, patient was smoking in bed and did some education. Stated that there is also a son available in the area for support. MAINTENANCE SHOP LABORER worked on transportation benefits as well. Let Debbie know that [facility] will be updated when she is ready for discharge. Set up transportation for tomorrow. Will call [facility] and update. Addendum entered by Mendy Shaffer R.N. 12/15/21 12:50: Met with patient's spouse, Dav. He indicated that she would need transport services, he can't get her into the car. He mentioned, she is mostly bed bound at home, she has a bedside commode. Asked him if his daughter assists, and he indicated, she is no help at all. He mentioned that his 19 year old grand son and his girlfriend live there, they try a little, but can't do much. He also confirmed that patient is under [facility] services, currently. Asked him if she can go ambulance, and he indicated, he can't afford that bill, they usually use [facility], for wheel chair transport. Asked if [facility] would be an option, and he indicated, it would. Asked Dr. Carias if patient is ready for discharge, for there is no available transportation today. Attempted [facility], left a message, but was able to get in touch with [facility]. Spoke to Joanie, and she indicated, they can fern picker patient at 1100 tomorrow if ready, and stated that cost of transport is $185.00, which they would need up front. Gave her , Dav's cell number as well. Updated Dr. Camarillo, and let him know that transport can be arranged for tomorrow, set up 11:00 spot, but unlikely today. He indicated that he has not yet seen her and unsure if she will be ready for discharge today. Will update Joanie at [facility] as soon as more information is received. She took down patient's information already for the 11:00 slot, but since she has to call in the armored car driver, would like to know today. This space planner left a message at home, was unable to reach his cell phone, regarding [facility] and the cost. Left [facility] a message regarding her home disciplines. In the message, inquired if social work was involved, for has been looking into VA benefits. Asked about private care agencies, stated, he can't afford, but has been making some calls regarding resources. Asked if goal is for patient to stay at home, and he indicated, it is. P: DCP to continue to follow. Will see how she does with P.T. Arranged transportation for patient to be picked up at 11:00 tomorrow, but is uncertain if she will be medically ready. She would resume [facility] if this is the case. Mendy Shaffer RN/Cider Press Operator Original Note: DCP: Case received, EMR reviewed and met with patient. Introduced self and role. Was able to obtain some information regarding her current living situation and baseline care needs. DCP assessment completed with information currently available. Patient is a 76 year old female who admitted early this morning to the care of the hospitalist team. PCP: Dr. Eric Juarez. Payer: confirmed: Medicare/[employer] for [employer]. Patient came to the hospital via ambulance secondary to having increased shortness of breath. Patient holds diagnosis of a-fib with RVR. Patient has history of paroxysmal atrial fibrillation, and is on Coumadin therapy. She also has history of CVA with right-sided deficits. Her CVA caused right-sided hemineglect and hemiparesis. Patient is wheel-chair bound, according to notes. She also noted some confusion upon admission, and noted to have some vascular dementia. Met with patient in her room. She was lying in bed, alert and oriented. She is pleasant. She was able to tell this space planner who her primary care provider is. She confirmed that she lives in [place] with her , Dav. She stated, he helps her out at home. She also indicated that she has a daughter named Taryn, who lives nearby, and is a LIQUID LOADER. Patient no longer drives, and indicated, she is wheel-chair bound at her baseline. P: DCP to continue to follow for any needs. P.T. will be seeing her as well. Patient should be able to go home when she is medically stable. Mendy Shaffer RN/Cider Press Operator Discharge Planning/Care Management CM Discharge Assessment Start: 12/15/21 10:37 Freq: Status: Active Protocol: Document 12/15/21 10:38 (Rec: 12/15/21 10:48 [id number]) Discharge Planning Assessment Assigned Building Pressure Washer Mendy Shaffer RN/Cider Press Operator Advance Directives? No History Provided By Patient,Medical Record Prior Living Arrangements House Household Members spouse Type of transporation used prior to Relies on Others admit Independent with ADL's Yes Is patient alert and oriented? Yes Needs Assistance With Bathing,Meal Prep,Managing Medications,Home Chores / Shopping Caregiver for Another No DME Already Rented / Owned Wheelchair Barriers to Discharge No Comment According to patient, her helps her at home, and she has other children that live nearby, her daughter, Taryn , who is a LIQUID LOADER. Discharge Plan Home Transportation Arrangement Family Referrals Initiated None needed Whiteboard Updated in Patient Room with Yes name and ext. # of Building Pressure Washer Review Status In Process Next Review Type Continued Stay Review
--- NOTE | 2021-12-15 11:33 | PM.CN.EICU ---
History of Present Illness Consult details Date Patient Seen: 12/15/21 Chief complaint: SOB :: This patient was seen via real time interactive two-way audiovisual telecommunication. feels better [facility] Medical History (Updated 12/15/21 @ 07:30 by Johana Christina MD) Acute exacerbation of CHF (congestive heart failure) Atrial fibrillation with rapid ventricular response Diabetes mellitus type 2 Ischemic stroke Seizure UTI (urinary tract infection) Ventricular tachycardia (paroxysmal) Social History household members: spouse Smoking Status: Current every day smoker alcohol intake: current Current Medications Current Medications Medications: Home Medications lamotrigine 25 mg tablet (Lamictal) 50 mg PO DAILY #0 02/01/13 [History Confirmed 12/14/21] lisinopril 5 mg tablet 20 mg PO DAILY #0 05/16/13 [History Confirmed 12/14/21] metoprolol tartrate 25 mg tablet 50 mg PO DAILY #0 05/16/13 [History Confirmed 12/14/21] nitroglycerin 0.4 mg sublingual tablet (Nitrostat) 0.4 mg SUBLINGUAL PRN PRN #0 05/16/13 [History Confirmed 12/14/21] amlodipine 10 mg tablet 10 mg PO DAILY 12/14/21 [History Confirmed 12/14/21] fluoxetine 40 mg capsule 40 mg PO DAILY 12/14/21 [History Confirmed 12/14/21] hydralazine 50 mg tablet 50 mg PO DAILY 12/14/21 [History Confirmed 12/14/21] omeprazole 20 mg capsule,delayed release 20 mg PO DAILY 12/14/21 [History Confirmed 12/14/21] oxybutynin chloride 5 mg tablet 5 mg PO DAILY 12/14/21 [History Confirmed 12/14/21] warfarin 4 mg tablet 4 mg PO DAILY 12/14/21 [History Confirmed 12/14/21] hydrocodone 10 mg-acetaminophen 325 mg tablet 1 tab PO Q6H PRN 12/15/21 [History Confirmed 12/15/21] insulin human U-100 NPH-regulr 70-30 mix 100 unit/mL subcutaneous susp (Novolin 70/30 U-100 Insulin) 25 unit SUBCUT DAILY 12/15/21 [History Confirmed 12/15/21] Visit Medications (administered) Generic Name Dose Route Start Last Admin Trade Name Anthony PRN Reason Stop Dose Admin Hydrocodone Bitart/Acetaminophen 1 tab 12/15/21 06:04 12/15/21 09:43 Hydrocodone/Acet 10/325 Tablet PO 1 tab Q6H PRN Administration Pain (Scale Score 4-6) Amlodipine Besylate 10 mg 12/15/21 09:00 12/15/21 09:14 Amlodipine 5 Mg Tablet PO 10 mg DAILY KAYLAN Administration Fluoxetine HCl 40 mg 12/15/21 09:00 12/15/21 09:14 Fluoxetine 20 Mg Capsule PO 40 mg DAILY KAYLAN Administration Furosemide 40 mg 12/15/21 09:00 12/15/21 09:15 Furosemide 40 Mg/4 Ml Vial IV 40 mg DAILY KAYLAN Administration Hydralazine HCl 50 mg 12/15/21 02:51 12/15/21 03:20 Hydralazine 25 Mg Tablet PO 50 mg DAILY KAYLAN Administration Diltiazem HCl 125 mg/ Dextrose 125 mls @ 5 mls/hr 12/14/21 23:39 12/15/21 10:30 IV 0 mg/hr TITRATE KAYLAN 0 mls/hr Titration Protocol 5 MG/HR Levofloxacin 500 mg in 100 mls @ 100 mls/hr 12/15/21 08:30 12/15/21 10:27 Levaquin IV Infused Q24H KAYLAN Infusion Insulin Human Isoph/Insulin Regular 25 unit 12/15/21 09:00 12/15/21 09:16 Insulin Nph/Reg 70-30 100 Unit/Ml 3ml Vial SUBCUT 25 unit DAILY KAYLAN Administration Lamotrigine 50 mg 12/15/21 09:00 12/15/21 09:24 Lamotrigine 100 Mg Tablet PO 50 mg DAILY KAYLAN Administration Lisinopril 20 mg 12/15/21 09:00 12/15/21 09:14 Lisinopril 5 Mg Tablet PO 20 mg DAILY KAYLAN Administration Metoprolol Succinate 50 mg 12/15/21 09:00 12/15/21 09:41 Metoprolol Er 50 Mg Tablet PO 50 mg BID KAYLAN Administration Oxybutynin 5 mg 12/15/21 09:00 12/15/21 09:24 Oxybutynin 5 Mg Tablet PO 5 mg DAILY KAYLAN Administration Pantoprazole Sodium 20 mg 12/15/21 09:00 12/15/21 09:[address] 20 Mg Tablet PO 20 mg DAILY KAYLAN Administration Exam Vital Signs (past 8 hours): - 12/15/21 03:37 12/15/21 03:45 12/15/21 04:00 Temperature Pulse Rate 90 85 82 Respiratory Rate 24 34 H 24 Blood Pressure 140/106 H 136/113 H Pulse Oximetry 12/15/21 04:01 12/15/21 04:06 12/15/21 04:15 Temperature Pulse Rate 80 80 Respiratory Rate 22 25 H Blood Pressure 111/68 111/68 129/80 Pulse Oximetry 12/15/21 04:30 12/15/21 04:45 12/15/21 05:00 Temperature Pulse Rate 83 78 88 Respiratory Rate 26 H 26 H 20 Blood Pressure 104/76 131/84 126/90 Pulse Oximetry 12/15/21 05:15 12/15/21 05:30 12/15/21 05:45 Temperature Pulse Rate 85 74 88 Respiratory Rate 26 H 28 H 26 H Blood Pressure 122/62 104/55 L 118/60 Pulse Oximetry 12/15/21 06:00 12/15/21 06:01 12/15/21 07:00 Temperature Pulse Rate 84 83 88 Respiratory Rate 25 H 21 20 Blood Pressure 138/86 159/72 H Pulse Oximetry 95 12/15/21 08:00 12/15/21 09:00 12/15/21 10:00 Temperature 97.8 F Pulse Rate 85 79 84 Respiratory Rate 28 H 17 30 H Blood Pressure 152/77 H 127/75 117/72 Pulse Oximetry 96 91 93 Oxygen Delivery Method Room Air Oxygen Flow Rate 0 Objective Labs Result Diagrams: 12/14/21 22:35 12/15/21 09:09 Labs: Laboratory Results - last 24 hr 12/14/21 12/14/21 12/14/21 22:30 22:35 22:35 WBC 7.0 RBC 4.92 Hgb 13.3 Hct 40.8 MCV 82.9 MCH 27.0 MCHC 32.6 RDW 16.9 H Plt Count 329 Neut % (Auto) 76.6 H Lymph % (Auto) 15.7 L [place] % (Auto) 6.4 Eos % (Auto) 0.4 L Baso % (Auto) 0.9 Neut # (Auto) 5400 Lymph # (Auto) 1100 [place] # (Auto) 400 Eos # (Auto) 0 Baso # (Auto) 100 PT 20.1 H INR 1.8 H APTT 37 H Sodium Potassium Chloride Carbon Dioxide BUN Creatinine Estimated GFR BUN/Creatinine Ratio Glucose Hemoglobin A1c Lactate Calcium Magnesium Total Bilirubin AST ALT Alkaline Phosphatase Total Creatine Kinase CK-MB (CK-2) CK-MB (CK-2) Rel Index Troponin I NT-Pro-B Natriuret Pep Total Protein Albumin Globulin Albumin/Globulin Ratio TSH Urine Color Urine Appearance Urine pH Ur Specific [place] Urine Protein Urine Glucose (UA) Urine Ketones Urine Occult Blood Urine Nitrate Urine Bilirubin Urine Urobilinogen Ur Leukocyte Esterase Urine RBC Urine WBC Ur Squamous Epith Cells Urine Bacteria Ur Culture Indicated? Nasal Screen MRSA (PCR) SARS-CoV-2 (PCR) Negative 12/14/21 12/14/21 12/14/21 22:35 22:35 22:35 WBC RBC Hgb Hct MCV MCH MCHC RDW Plt Count Neut % (Auto) Lymph % (Auto) [place] % (Auto) Eos % (Auto) Baso % (Auto) Neut # (Auto) Lymph # (Auto) [place] # (Auto) Eos # (Auto) Baso # (Auto) PT INR APTT Sodium 138 Potassium 4.3 Chloride 106 Carbon Dioxide 24 BUN 25 H Creatinine 1.03 Estimated GFR 52.4 L BUN/Creatinine Ratio 24.3 H Glucose 207 H Hemoglobin A1c Lactate 2.1 Calcium 9.4 Magnesium 2.0 Total Bilirubin 1.7 H AST 35 ALT 24 Alkaline Phosphatase 153 H Total Creatine Kinase 62 CK-MB (CK-2) TNP CK-MB (CK-2) Rel Index TNP Troponin I 0.018 NT-Pro-B Natriuret Pep 92852 H Total Protein 7.7 Albumin 4.2 Globulin 3.5 Albumin/Globulin Ratio 1.2 TSH Urine Color Urine Appearance Urine pH Ur Specific [place] Urine Protein Urine Glucose (UA) Urine Ketones Urine Occult Blood Urine Nitrate Urine Bilirubin Urine Urobilinogen Ur Leukocyte Esterase Urine RBC Urine WBC Ur Squamous Epith Cells Urine Bacteria Ur Culture Indicated? Nasal Screen MRSA (PCR) SARS-CoV-2 (PCR) 12/15/21 12/15/21 12/15/21 01:05 02:00 02:00 WBC RBC Hgb Hct MCV MCH MCHC RDW Plt Count Neut % (Auto) Lymph % (Auto) [place] % (Auto) Eos % (Auto) Baso % (Auto) Neut # (Auto) Lymph # (Auto) [place] # (Auto) Eos # (Auto) Baso # (Auto) PT INR APTT Sodium Potassium Chloride Carbon Dioxide BUN Creatinine Estimated GFR BUN/Creatinine Ratio Glucose Hemoglobin A1c Lactate 2.7 H Calcium Magnesium Total Bilirubin AST ALT Alkaline Phosphatase Total Creatine Kinase CK-MB (CK-2) CK-MB (CK-2) Rel Index Troponin I NT-Pro-B Natriuret Pep Total Protein Albumin Globulin Albumin/Globulin Ratio TSH Urine Color Straw Urine Appearance Cloudy Urine pH 5.5 Ur Specific [place] 1.010 Urine Protein Trace H Urine Glucose (UA) Trace H Urine Ketones Negative Urine Occult Blood 2+ H Urine Nitrate Negative Urine Bilirubin Negative Urine Urobilinogen 0.2 Ur Leukocyte Esterase 3+ H Urine RBC 0-1/hpf Urine WBC >100/hpf H Ur Squamous Epith Cells 1-5 /hpf Urine Bacteria Many (>30) H Ur Culture Indicated? Specimen cultured Nasal Screen MRSA (PCR) Negative for mrsa SARS-CoV-2 (PCR) 12/15/21 12/15/21 12/15/21 09:09 09:09 09:09 WBC RBC Hgb Hct MCV MCH MCHC RDW Plt Count Neut % (Auto) Lymph % (Auto) [place] % (Auto) Eos % (Auto) Baso % (Auto) Neut # (Auto) Lymph # (Auto) [place] # (Auto) Eos # (Auto) Baso # (Auto) PT INR APTT Sodium Potassium Chloride Carbon Dioxide BUN Creatinine Estimated GFR BUN/Creatinine Ratio Glucose Hemoglobin A1c 8.1 H Lactate Calcium Magnesium Total Bilirubin AST ALT Alkaline Phosphatase Total Creatine Kinase CK-MB (CK-2) CK-MB (CK-2) Rel Index Troponin I 0.036 H NT-Pro-B Natriuret Pep Total Protein Albumin Globulin Albumin/Globulin Ratio TSH 0.506 Urine Color Urine Appearance Urine pH Ur Specific [place] Urine Protein Urine Glucose (UA) Urine Ketones Urine Occult Blood Urine Nitrate Urine Bilirubin Urine Urobilinogen Ur Leukocyte Esterase Urine RBC Urine WBC Ur Squamous Epith Cells Urine Bacteria Ur Culture Indicated? Nasal Screen MRSA (PCR) SARS-CoV-2 (PCR) 12/15/21 09:09 WBC RBC Hgb Hct MCV MCH MCHC RDW Plt Count Neut % (Auto) Lymph % (Auto) [place] % (Auto) Eos % (Auto) Baso % (Auto) Neut # (Auto) Lymph # (Auto) [place] # (Auto) Eos # (Auto) Baso # (Auto) PT INR APTT Sodium 137 Potassium 3.4 Chloride 101 Carbon Dioxide 30 BUN 24 H Creatinine 1.09 H Estimated GFR 49.1 L BUN/Creatinine Ratio 22.0 Glucose 207 H Hemoglobin A1c Lactate Calcium 8.9 Magnesium 1.7 Total Bilirubin AST ALT Alkaline Phosphatase Total Creatine Kinase CK-MB (CK-2) CK-MB (CK-2) Rel Index Troponin I NT-Pro-B Natriuret Pep Total Protein Albumin Globulin Albumin/Globulin Ratio TSH Urine Color Urine Appearance Urine pH Ur Specific [place] Urine Protein Urine Glucose (UA) Urine Ketones Urine Occult Blood Urine Nitrate Urine Bilirubin Urine Urobilinogen Ur Leukocyte Esterase Urine RBC Urine WBC Ur Squamous Epith Cells Urine Bacteria Ur Culture Indicated? Nasal Screen MRSA (PCR) SARS-CoV-2 (PCR) Assessment & Plan Assessment & Plan narrative: patient seen and examined with bedside nurse and bedside provider chart/labs/imaging reviewed 76 year old female with acute respiratory failure 2/2 to CHF exacerbation atrial fibrillation currently afebirle, HD stable HR controlled pt in no distress, talking full sentences on room air suggest -avoid opiods/benzos -oxygen/bipap prn -cardizem for afib, start po meds, wean off of drips -check serial ekg/trop -checko echo, cardio eval prn -optimize glucose control 140-180s -keep sbp less than 140s -cont home meds -coumadin for AC keep inr2-3 -gi/dvt ppx -please call tele ICU if condition changes . Time Spent With Patient Critical Care time: I spent a total of [] minutes of critical care time on this patient's care today; this time is exclusive of procedural time.
[2021-12-15] MEDS: INSULIN LISPRO 100 UNIT/ML 3ML VIAL SUBCUT (12:15)
[2021-12-15] MEDS: POTASSIUM CHLORIDE 20 MEQ TAB 40 MEQ PO (14:00)
[2021-12-15] MEDS: MAGNESIUM CHLORIDE 64 MG TABLET 128 MG PO (14:00)
[2021-12-15] MEDS: POTASSIUM CHLORIDE IN WATER 10 MEQ/100 ML PIGGYBACK 100 MEQ IV ×3 (16:04→18:36)
--- NOTE | 2021-12-15 17:04 | PC.NURSE ---
Pt noted to be picking at scabs on her legs. She picked a scab off of her left great toe. Her states that she has not gotten OOB to her w/c (at home) in some time and she mostly just sits in bed, picks at scabs, and eats candy. He states she is incontinent of urine but does get OOB to [facility] via smita lift for bowel movements. Instructed pt to refrain from picking at scabs to preserve skin integrity. She verbalizes understanding. Will monitor.
[2021-12-15] MEDS: WARFARIN 2 MG TABLET 4 MG PO (17:51)
--- NOTE | 2021-12-15 19:59 | PM.DS.1 ---
History of Present Illness History of Present Illness Chief complaint: SOB Narrative: Per Dr. Christina: This is a 76 year old female with a history of stroke causing right-sided hemineglect and hemiparesis, congestive heart failure, atrial fibrillation, diabetes mellitus, ventricular tachycardia, seizures who came to the emergency department last night with 2 days of worsening shortness of breath.? She was found to be in atrial fibrillation with rapid ventricular response which has responded well to Lopressor and eventually a diltiazem drip.? [place]NP was [address]508 so she was treated with Lasix in the emergency department and is breathing better now.? Her heart rate is now in the 80s.? Her chest x-ray showed a trace right pleural effusion without evidence for pulmonary edema.? Her lactic acid level, after the diuresis, has risen from 1.7 up to 2.7.? Her BUN is 25 with a creatinine of 1.03 and normal electrolytes.? When I see her she is very confused, claiming that I am her son, and is very challenging to gain any insight or answers to questions as she is quite internally distracted, right yuriy-neglect full and appears to have some vascular dementia.? She apparently lives with her in their own home but additional information is not forthcoming.? Her blood sugar is 209.? She will need an A1c and an echocardiogram as those do not appear to been checked recently.? She also is listed as being on an unknown dose of NPH at home.? We will be covering that with a correctional scale for now.? Discharge Providers Provider Date of admission: 12/15/21 00:36 Discharge Date: 12/15/21 Consults: 12/14/21 22:33 Consult to Respiratory Therapy Evaluate & Treat Comment: Physician Instructions: Evaluate and treat 12/15/21 06:05 Consult to Tele-buckle wire inserter Routine Comment: Consulting Provider: Josette [employer]-intensivists Reason for consultation: Him Analyst services 12/15/21 06:08 Consult to Pharmacy Routine Comment: Warfarin management 12/15/21 07:49 Consult to Physical Therapy Evaluate & Treat Comment: Physician Instructions: Evaluate and Treat Discharge provider: Patrick Carias MD Summary Hospital Course Discharge Diagnosis: 1. Atrial fibrillation with RVR 2. CHF with reduced EF, 30-35% 3. Vascular dementia 4. Type 2 DM on insulin 5. History of CVA with Right hemiparesis 6. HTN 7. Seizure disorder 8. Cardiac demand ischemia Hospital Course: Ms. Garcia came in to the hospital with shortness of breath and was found to have atrial fibrillation with RVR. She was already on coumadin. Her rate improved quickly on a diltiazem drip and this was discontinued and transitioned to oral metoprolol. Her rate remained controlled. She had a mild CHF exacerbation and improved quickly with IV lasix. She had no chest pain and troponin was only mildly elevate at 0.03 consisent with demand ischemia from tachycardia. Her EF showed a worsened function at 30-35%. She would benefit from cardiology follow up to consider stress test and possible cardiac cath. Her A1c was elevated at 8, and she should follow up with a PCP to adjust her blood sugar medications. Exam Vital Signs (past 8 hours): - 12/15/21 12:00 12/15/21 17:00 12/15/21 19:00 Temperature 97.7 F 98.8 F 97.3 F L Pulse Rate 87 82 Respiratory Rate 21 23 20 Blood Pressure 109/59 L 136/89 Pulse Oximetry 93 96 Oxygen Delivery Method Room Air Oxygen Flow Rate 0 Narrative Exam Narrative: GEN: no acute distress, pleasantly confused CV: irregularly irregular PULM: clear bilaterally SKIN: picking scars over much of body NEURO: R sided weakness Objective Labs Result Diagrams: 12/14/21 22:35 12/15/21 09:09 Labs: Laboratory Results - last 24 hr 12/14/21 12/14/21 12/14/21 22:30 22:35 22:35 WBC 7.0 RBC 4.92 Hgb 13.3 Hct 40.8 MCV 82.9 MCH 27.0 MCHC 32.6 RDW 16.9 H Plt Count 329 Neut % (Auto) 76.6 H Lymph % (Auto) 15.7 L [place] % (Auto) 6.4 Eos % (Auto) 0.4 L Baso % (Auto) 0.9 Neut # (Auto) 5400 Lymph # (Auto) 1100 [place] # (Auto) 400 Eos # (Auto) 0 Baso # (Auto) 100 PT 20.1 H INR 1.8 H APTT 37 H Sodium Potassium Chloride Carbon Dioxide BUN Creatinine Estimated GFR BUN/Creatinine Ratio Glucose Hemoglobin A1c Lactate Calcium Magnesium Total Bilirubin AST ALT Alkaline Phosphatase Total Creatine Kinase CK-MB (CK-2) CK-MB (CK-2) Rel Index Troponin I NT-Pro-B Natriuret Pep Total Protein Albumin Globulin Albumin/Globulin Ratio TSH Urine Color Urine Appearance Urine pH Ur Specific [place] Urine Protein Urine Glucose (UA) Urine Ketones Urine Occult Blood Urine Nitrate Urine Bilirubin Urine Urobilinogen Ur Leukocyte Esterase Urine RBC Urine WBC Ur Squamous Epith Cells Urine Bacteria Ur Culture Indicated? Nasal Screen MRSA (PCR) SARS-CoV-2 (PCR) Negative 12/14/21 12/14/21 12/14/21 22:35 22:35 22:35 WBC RBC Hgb Hct MCV MCH MCHC RDW Plt Count Neut % (Auto) Lymph % (Auto) [place] % (Auto) Eos % (Auto) Baso % (Auto) Neut # (Auto) Lymph # (Auto) [place] # (Auto) Eos # (Auto) Baso # (Auto) PT INR APTT Sodium 138 Potassium 4.3 Chloride 106 Carbon Dioxide 24 BUN 25 H Creatinine 1.03 Estimated GFR 52.4 L BUN/Creatinine Ratio 24.3 H Glucose 207 H Hemoglobin A1c Lactate 2.1 Calcium 9.4 Magnesium 2.0 Total Bilirubin 1.7 H AST 35 ALT 24 Alkaline Phosphatase 153 H Total Creatine Kinase 62 CK-MB (CK-2) TNP CK-MB (CK-2) Rel Index TNP Troponin I 0.018 NT-Pro-B Natriuret Pep 52837 H Total Protein 7.7 Albumin 4.2 Globulin 3.5 Albumin/Globulin Ratio 1.2 TSH Urine Color Urine Appearance Urine pH Ur Specific [place] Urine Protein Urine Glucose (UA) Urine Ketones Urine Occult Blood Urine Nitrate Urine Bilirubin Urine Urobilinogen Ur Leukocyte Esterase Urine RBC Urine WBC Ur Squamous Epith Cells Urine Bacteria Ur Culture Indicated? Nasal Screen MRSA (PCR) SARS-CoV-2 (PCR) 12/15/21 12/15/21 12/15/21 01:05 02:00 02:00 WBC RBC Hgb Hct MCV MCH MCHC RDW Plt Count Neut % (Auto) Lymph % (Auto) [place] % (Auto) Eos % (Auto) Baso % (Auto) Neut # (Auto) Lymph # (Auto) [place] # (Auto) Eos # (Auto) Baso # (Auto) PT INR APTT Sodium Potassium Chloride Carbon Dioxide BUN Creatinine Estimated GFR BUN/Creatinine Ratio Glucose Hemoglobin A1c Lactate 2.7 H Calcium Magnesium Total Bilirubin AST ALT Alkaline Phosphatase Total Creatine Kinase CK-MB (CK-2) CK-MB (CK-2) Rel Index Troponin I NT-Pro-B Natriuret Pep Total Protein Albumin Globulin Albumin/Globulin Ratio TSH Urine Color Straw Urine Appearance Cloudy Urine pH 5.5 Ur Specific [place] 1.010 Urine Protein Trace H Urine Glucose (UA) Trace H Urine Ketones Negative Urine Occult Blood 2+ H Urine Nitrate Negative Urine Bilirubin Negative Urine Urobilinogen 0.2 Ur Leukocyte Esterase 3+ H Urine RBC 0-1/hpf Urine WBC >100/hpf H Ur Squamous Epith Cells 1-5 /hpf Urine Bacteria Many (>30) H Ur Culture Indicated? Specimen cultured Nasal Screen MRSA (PCR) Negative for mrsa SARS-CoV-2 (PCR) 12/15/21 12/15/21 12/15/21 09:09 09:09 09:09 WBC RBC Hgb Hct MCV MCH MCHC RDW Plt Count Neut % (Auto) Lymph % (Auto) [place] % (Auto) Eos % (Auto) Baso % (Auto) Neut # (Auto) Lymph # (Auto) [place] # (Auto) Eos # (Auto) Baso # (Auto) PT INR APTT Sodium Potassium Chloride Carbon Dioxide BUN Creatinine Estimated GFR BUN/Creatinine Ratio Glucose Hemoglobin A1c 8.1 H Lactate Calcium Magnesium Total Bilirubin AST ALT Alkaline Phosphatase Total Creatine Kinase CK-MB (CK-2) CK-MB (CK-2) Rel Index Troponin I 0.036 H NT-Pro-B Natriuret Pep Total Protein Albumin Globulin Albumin/Globulin Ratio TSH 0.506 Urine Color Urine Appearance Urine pH Ur Specific [place] Urine Protein Urine Glucose (UA) Urine Ketones Urine Occult Blood Urine Nitrate Urine Bilirubin Urine Urobilinogen Ur Leukocyte Esterase Urine RBC Urine WBC Ur Squamous Epith Cells Urine Bacteria Ur Culture Indicated? Nasal Screen MRSA (PCR) SARS-CoV-2 (PCR) 12/15/21 09:09 WBC RBC Hgb Hct MCV MCH MCHC RDW Plt Count Neut % (Auto) Lymph % (Auto) [place] % (Auto) Eos % (Auto) Baso % (Auto) Neut # (Auto) Lymph # (Auto) [place] # (Auto) Eos # (Auto) Baso # (Auto) PT INR APTT Sodium 137 Potassium 3.4 Chloride 101 Carbon Dioxide 30 BUN 24 H Creatinine 1.09 H Estimated GFR 49.1 L BUN/Creatinine Ratio 22.0 Glucose 207 H Hemoglobin A1c Lactate Calcium 8.9 Magnesium 1.7 Total Bilirubin AST ALT Alkaline Phosphatase Total Creatine Kinase CK-MB (CK-2) CK-MB (CK-2) Rel Index Troponin I NT-Pro-B Natriuret Pep Total Protein Albumin Globulin Albumin/Globulin Ratio TSH Urine Color Urine Appearance Urine pH Ur Specific [place] Urine Protein Urine Glucose (UA) Urine Ketones Urine Occult Blood Urine Nitrate Urine Bilirubin Urine Urobilinogen Ur Leukocyte Esterase Urine RBC Urine WBC Ur Squamous Epith Cells Urine Bacteria Ur Culture Indicated? Nasal Screen MRSA (PCR) SARS-CoV-2 (PCR) [facility] Medical History (Updated 12/15/21 @ 07:30 by Johana Christina MD) Acute exacerbation of CHF (congestive heart failure) Atrial fibrillation with rapid ventricular response Diabetes mellitus type 2 Ischemic stroke Seizure UTI (urinary tract infection) Ventricular tachycardia (paroxysmal) Social History household members: spouse Smoking Status: Current every day smoker alcohol intake: current Discharge Plan Discharge Plan Patient Disposition: Home Provider Discharge Comment: Ms. Garcia came in with atrial fibrillation with RVR. She had trouble breathing. She improved with medications and her metoprolol was increased. She was ordered for lasix. She also was ordered for levofloxacin. She has a weak heart and should follow up with her automotive general sales manager to monitor her further. Discharge orders & Medications Prescriptions: New metoprolol succinate 50 mg Tablet Extended Release 24 Hr 50 mg PO BID Qty: 60 0RF levofloxacin 500 mg tablet 500 mg PO DAILY Qty: 2 0RF furosemide [Lasix] 20 mg tablet 10 mg PO DAILY Qty: 30 0RF Continued lamotrigine [Lamictal] 25 MG tablet 50 mg PO DAILY Qty: 0 0RF lisinopril 5 MG tablet 20 mg PO DAILY Qty: 0 0RF nitroglycerin [Nitrostat] 0.4 MG tablet, sublingual 0.4 mg Sublingual PRN PRN (Reason: Chest Pain) Qty: 0 0RF fluoxetine 40 mg capsule 40 mg PO DAILY 0RF oxybutynin chloride 5 mg tablet 5 mg PO DAILY 0RF warfarin 4 mg tablet 4 mg PO DAILY 0RF amlodipine 10 mg tablet 10 mg PO DAILY 0RF omeprazole 20 mg Capsule,Delayed Release(Dr/Ec) 20 mg PO DAILY 0RF hydralazine 50 mg tablet 50 mg PO DAILY 0RF hydrocodone-acetaminophen 10-325 mg Tablet 1 tab PO Q6H PRN (Reason: Pain (Scale Score 4-6)) 0RF Novolin 70/30 U-100 Insulin 100 unit/mL (70-30) suspension 25 unit SUBCUT DAILY 0RF Rx Instructions: Daily at 0900 Discontinued metoprolol tartrate 25 MG tablet 50 mg PO DAILY Qty: 0 0RF Follow up/Referrals: [facility] [Provider Group] (afib rvr, depressed EF, CHF please follow up within 2 weeks) Diet/Activity/Treatments Diet: Low-sodium Discharge Data Attending Provider: Johana Christina
[2021-12-15] MEDS: POTASSIUM CHLORIDE IN WATER 10 MEQ/100 ML PIGGYBACK 50 MEQ IV (20:11)
[2021-12-16] VITALS (7 sets, daily range): BP systolic 110–136; BP diastolic 60–90; PULSE 64–83; RESP 20; TEMP 36–36.7; O2SAT 95–96
[2021-12-16] MEDS: HYDROCODONE/ACET 10/325 TABLET 1 TAB PO ×2 (01:04→07:45)
--- NOTE | 2021-12-16 06:32 | PC.NURSE ---
0600 removed IV access from antecubital region of the left arm due to infiltration on the region. Mrs. Garcia' left arm was elevated with a pillow to manage swelling of the infiltration.
[2021-12-16 06:51] LABS: Add Manual Diff / Slide Review NO; Basophils Absolute Auto 100 /uL (0-100); Basophils Percent Auto 0.8 % (0-2); Eosinophils Absolute Auto 100 /uL (0-450); Eosinophils Percent Auto 1.3 % (2-4); Hematocrit 37.1 % (36-46); Hemoglobin 11.8 g/dL (12.0-16.0); Lymphocytes Absolute Auto 1400 /uL (1100-4500); Lymphocytes Percent Auto 19.1 % (25-40); Mean Corpuscular HGB Conc 31.7 % (30-36); Mean Corpuscular Hemoglobin 26.3 PG (26-34); Monocytes Absolute Auto 600 /uL (0-900); Monocytes Percent Auto 8.5 % (3-14); Neutrophils Absolute Auto 5100 /uL (1500-7000); Neutrophils Percent Auto 70.3 % (50-75); Platelet Count 328 X10^3/uL (150-400); Red Blood Cell Count 4.47 X10^6/uL (4.0-5.2); Red Cell Distribution Width 16.6 % (11.6-14.8); White Blood Cell Count 7.3 X10^3/uL (4.5-11.0)
[2021-12-16 06:56] LABS: Lactate (Lactic Acid) 1.7 mmol/L (0.7-2.1)
[2021-12-16 07:10] LABS: BUN Creatinine Ratio 22.8 (6-22); Blood Urea Nitrogen 28 mg/dL (7-17); Calcium 8.8 mg/dL (8.4-10.2); Carbon Dioxide 30 mmol/L (22-32); Chloride 101 mmol/L (98-107); Estimated Glomerular Filt Rate 42.7 mL/min (>60); Glucose 111 mg/dL (80-110); HEMOLYSIS < 15 (0-50); Potassium 4.3 mmol/L (3.4-5.1); Sodium 136 mmol/L (137-145)
[2021-12-16] MEDS: levoFLOXacin 500 MG/100 ML PIGGYBACK 100 MG IV (09:00)
[2021-12-16] MEDS: HYDRALAZINE 25 MG TABLET 50 MG PO (09:01)
[2021-12-16] MEDS: FLUoxetine 20 MG CAPSULE 40 MG PO (09:01)
[2021-12-16] MEDS: FUROSEMIDE 40 MG/4 ML VIAL IV (09:02)
[2021-12-16] MEDS: lamoTRIgine 100 MG TABLET 50 MG PO (09:02)
[2021-12-16] MEDS: AMLODIPINE 5 MG TABLET 10 MG PO (09:03)
[2021-12-16] MEDS: OXYBUTYNIN 5 MG TABLET PO (09:03)
[2021-12-16] MEDS: PANTOPRAZOLE DR 20 MG TABLET PO (09:03)
[2021-12-16] MEDS: METOPROLOL ER 50 MG TABLET PO (09:03)
[2021-12-16] MEDS: INSULIN NPH/REG 70-30 100 UNIT/ML 3ML VIAL 25 UNIT SUBCUT (09:05)
== END 2021-12-16 11:15 | disposition home or self-care (01) ==
LOC: ED 22:37 → ICU 12-15 01:03 → AC 12-15 11:44 → ICU 12-15 11:44
PROVIDERS: Internal Medicine; Admitting Provider Family Medicine; Emergency Provider Emergency Medicine; Referring Provider Emergency Medicine; Visit Provider Family Medicine
DX: I48.0 Paroxysmal atrial fibrillation (principal); Z79.01 Long term (current) use of anticoagulants; Z99.3 Dependence on wheelchair; I69.951 Hemiplegia and hemiparesis following unspecified cerebrovascular disease affecting right dominant side; F01.50 Vascular dementia, unspecified severity, without behavioral disturbance, psychotic disturbance, mood disturbance, and anxiety; F17.210 Nicotine dependence, cigarettes, uncomplicated; I50.20 Unspecified systolic (congestive) heart failure; I25.89 Other forms of chronic ischemic heart disease; G40.909 Epilepsy, unspecified, not intractable, without status epilepticus; E11.9 Type 2 diabetes mellitus without complications; Z79.4 Long term (current) use of insulin; I11.0 Hypertensive heart disease with heart failure; Z20.822 Contact with and (suspected) exposure to COVID-19
CPT/HCPCS: 36415; 71045; 80048; 80053; 81001; 82550; 82962; 83036; 83605; 83735; 83880; 84443; 84484; 85025; 85610; 85730; 87040; 87077; 87086; 87186; 87635; 87797; 93005; 93010; 93306; 96365; 96366; 96367; 96368; 96372; 96375; 96376; 99285; C9803; G0378; J1815; J1940; J1956

== ENCOUNTER 2021-12-22 08:15 | Emergency (ER) | payer MEDICARE, OTHER, SELFPAY ==
[2021-12-15 01:27] VITALS: BMI 28.9
[2021-12-22] VITALS (32 sets, daily range): BP systolic 135–168; BP diastolic 78–117; PULSE 74–120; RESP 18–27; TEMP 36.6; O2SAT 92–97
--- NOTE | 2021-12-22 08:28 | DI.RAD.S_ITS ---
PROCEDURE: XR CHEST 1V INDICATIONS: chest pain TECHNIQUE: One view of the chest was acquired. COMPARISON: [facility], , XR CHEST 1V, 05/13/2020, 10:04. [facility], , CHEST 1 VIEW, 01/04/2017, 9:48. [facility], , XR CHEST 1V, 12/14/2021, 22:40. FINDINGS: Surgical changes and devices: None. Lungs and pleura: Low lung volumes are noted. This causes a crowded appearance to the lung markings and limits evaluation. Minimal blunting of the costophrenic can be seen. No pneumothorax. Mediastinum: The cardiac contours are moderately enlarged. The aorta demonstrates calcification and tortuosity. Bones and chest wall: No suspicious bony lesions. Age-appropriate bony degenerative changes are seen. Overlying soft tissues appear unremarkable. IMPRESSION: Cardiomegaly and likely trace pleural effusions. Low lung volumes. Dictated by: Db Kinsey M.D. on 12/22/2021 at 8:13 Approved by: Db Kinsey M.D. on 12/22/2021 at 8:15
[2021-12-22 09:11] LABS: INR 1.5 (0.9-1.3); Prothrombin Time 16.5 SECONDS (10.1-12.7); Red Cell Distribution Width 17.2 % (11.6-14.8)
[2021-12-22 09:14] LABS: Hematocrit 41.8 % (36-46); Hemoglobin 13.3 g/dL (12.0-16.0); Mean Corpuscular HGB Conc 31.8 % (30-36); Mean Corpuscular Hemoglobin 26.5 PG (26-34); Mean Corpuscular Volume 83.2 fL (80-100); PTT Partial Thromboplastin Tim 37 SECONDS (26.4-36.2); Platelet Count 336 X10^3/uL (150-400); Red Blood Cell Count 5.02 X10^6/uL (4.0-5.2); White Blood Cell Count 7.6 X10^3/uL (4.5-11.0)
[2021-12-22 09:17] LABS: Add Manual Diff / Slide Review YES
[2021-12-22 09:18] LABS: Alanine Aminotransferase 45 IU/L (<35); Albumin 4.2 g/dL (3.5-5.0); Albumin Globulin Ratio 1.3 (1.0-2.8); Alkaline Phosphatase 178 U/L (38-126); Aspartate Aminotransferase 57 IU/L (14-36); BUN Creatinine Ratio 23.8 (6-22); Bilirubin Total 1.3 mg/dL (0.2-1.3); Blood Urea Nitrogen 24 mg/dL (7-17); Calcium 8.9 mg/dL (8.4-10.2); Carbon Dioxide 28 mmol/L (22-32); Chloride 105 mmol/L (98-107); Creatine Kinase 38 U/L (30-135); Estimated Glomerular Filt Rate 53.6 mL/min (>60); Globulin 3.3 g/dL (1.7-4.1); Glucose 177 mg/dL (80-110); HEMOLYSIS 30 (0-50); Lipase 13 U/L (23-300); Magnesium 1.9 mg/dL (1.6-2.3); Potassium 4.5 mmol/L (3.4-5.1); Sodium 139 mmol/L (137-145); Total Protein 7.5 g/dL (6.3-8.2)
--- NOTE | 2021-12-22 09:29 | ED_ITS ---
HPI - Chest Pain General Chief Complaint: Chest Pain Stated Complaint: Afib Time Seen by Provider: 12/22/21 09:16 Source: patient and EMS Mode of arrival: EMS Limitations: no limitations Limitations: no limitations History of Present Illness HPI narrative: The patient awoke between 5:30 and 6:30 a.m. this morning with upper, central sternal chest pain. The pain does not radiate. She has associated epigastric pain and nausea/vomiting. She is currently asymptomatic of GI discomfort or c hest pain. She takes omeprazole for dyspepsia. She has a history of CHF and AFib. She is anticoagulated. She is diabetic. She has a prior history of ischemic CVA she has no proven history of CAD. She has no recent illness. She has no cough or dyspnea. She has been vaccinated for COVID-19. She was admitted here last week with similar chest discomfort. She had AFib with RVR and CHF at that time. There was no evidence of ACS. Echo revealed decreased left ventricular function with EF 30-35%. Additionally, she takes Dalton for chronic right knee pain. She has complained of pain here. She has had no trauma, she simply has not had her pain pill. She has no numbness or weakness, no acute process with the right leg. Related Data Home Medications Medication Instructions Recorded Confirmed lamotrigine 25 mg tablet (Lamictal) 50 mg PO DAILY #0 02/01/13 12/14/21 lisinopril 5 mg tablet 20 mg PO DAILY #0 05/16/13 12/14/21 nitroglycerin 0.4 mg sublingual 0.4 mg SUBLINGUAL PRN PRN #0 05/16/13 12/14/21 tablet (Nitrostat) amlodipine 10 mg tablet 10 mg PO DAILY 12/14/21 12/14/21 fluoxetine 40 mg capsule 40 mg PO DAILY 12/14/21 12/14/21 hydralazine 50 mg tablet 50 mg PO DAILY 12/14/21 12/14/21 omeprazole 20 mg capsule,delayed 20 mg PO DAILY 12/14/21 12/14/21 release oxybutynin chloride 5 mg tablet 5 mg PO DAILY 12/14/21 12/14/21 warfarin 4 mg tablet 4 mg PO DAILY 12/14/21 12/14/21 hydrocodone 10 mg-acetaminophen 1 tab PO Q6H PRN 12/15/21 12/15/21 325 mg tablet insulin human U-100 NPH-regulr 25 unit SUBCUT DAILY 12/15/21 12/15/21 70-30 mix 100 unit/mL subcutaneous susp (Novolin 70/30 U-100 Insulin) Previous Rx's Medication Instructions Recorded furosemide 20 mg tablet (Lasix) 10 mg PO DAILY #30 tab 12/15/21 levofloxacin 500 mg tablet 500 mg PO DAILY #2 tab 12/15/21 metoprolol succinate 50 mg 50 mg PO BID #60 tab 12/15/21 tablet,extended release 24 hr Allergies Allergy/AdvReac Type Severity Reaction Status Date / Time Penicillins [PENICILLINS] Allergy Unknown Verified 12/22/21 08:31 Review of Systems Constitutional Constitutional: Denies body ache(s), Denies chills, Denies fever(s) and Denies headache(s) Eyes Eyes: Denies change in vision ENT Ears, Nose, Mouth, and Throat: Denies vertigo, Denies dizziness, Denies headache(s), Denies mouth lesions and Denies sore throat Cardiovascular Cardiovascular: Denies chest pain and Denies dyspnea Respiratory Respiratory: Denies cough and Denies dyspnea Gastrointestinal Gastrointestinal: Reports as per HPI, Reports abdominal pain and Reports vomiting Genitourinary Genitourinary: Denies dysuria Musculoskeletal Musculoskeletal: Denies back pain Comments: No lower extremity edema. Right knee pain as noted HPI. Integumentary/Breasts Skin/Breast: Denies lesions and Denies rash Neurologic Neurologic: Denies confusion, Denies vertigo, Denies dizziness and Denies head ache(s) Psychiatric Psychiatric: Denies confusion Hematologic/Lymphatic On Anticoagulants: Yes Patient History Medical History (Updated 12/22/21 @ 11:32 by Mario Collins MD) Acute exacerbation of CHF (congestive heart failure) Atrial fibrillation with rapid ventricular response Chronic GERD Congestive heart failure Diabetes mellitus type 2 Ischemic stroke Seizure UTI (urinary tract infection) Ventricular tachycardia (paroxysmal) Social History household members: spouse Smoking Status: Current every day smoker alcohol intake: current Smoking Status: Current every day smoker alcohol intake frequency: holidays/special occasions only Substance Use Type: does not use Exam Initial Vital Signs Initial Vital Signs: Vital Signs Pulse Rate 85 12/22/21 08:27 Respiratory Rate 19 12/22/21 08:27 Pulse Oximetry 96 12/22/21 08:27 Const General: cooperative, healthy appearing and comfortable Nutritional Appearance: obese HENMT Head: normocephalic and atraumatic Mouth: oral mucosae normal Throat: posterior oropharynx normal Eyes Conjunctivae: conjunctivae normal Sclera: sclerae normal Pupils: PERRL EOM: EOM intact bilaterally Neck Neck: No tender and No JVD Chest Chest: normal palpation of entire chest wall Resp Effort & Inspection: normal respiratory effort Auscultation: clear to auscultation bilaterally Cardio Rate: regular rate Rhythm: regular rhythm Heart Sounds: S1 normal, S2 normal, no click, no gallops, no murmurs and no rubs GI Inspection: normal to inspection Palpation: soft, No mass and No tender Auscultation: normal bowel sounds Back/Spine/Pelvis Back: normal to inspection and No CVA tenderness Skin General: no rashes or lesions noted Lesions: no lesions Rashes: no rashes Neuro General: patient alert, patient awake, patient oriented x3, no meningeal signs and no focal motor deficits Cranial Nerves: CN's II-XI intact bilaterally Motor: muscle tone normal throughout Extrem General: full ROM, no pedal edema and no calf tenderness Other: Right knee edema, decreased range of motion. Crepitus. No erythema or warmth. No acute changes to the right knee. Abrasion with eschar on her left dorsal foot. No infection. Psych Appearance: grossly normal Course Orders Ordered: Discontinued Medications Hydrocodone Bitart/Acetaminophen (Hydrocodone/Acet 5/325 Tablet) 2 tab PO NOW ONE Stop: 12/22/21 09:38 Last Admin: 12/22/21 10:03 Dose: 2 tab Documented by: ARNOLD Furosemide (Furosemide 40 Mg/4 Ml Vial) 40 mg IV NOW ONE Stop: 12/22/21 10:22 Last Admin: 12/22/21 11:15 Dose: 40 mg Documented by: ARNOLD Vital Signs Vital signs: Vital Signs - 8 hr 12/22/21 12:30 12/22/21 12:45 12/22/21 13:00 Pulse Rate 105 H 100 H 120 H Respiratory Rate 24 20 24 Blood Pressure 135/97 H Pulse Oximetry 95 95 12/22/21 13:09 12/22/21 13:15 12/22/21 13:30 Pulse Rate 111 H 109 H 116 H Respiratory Rate Blood Pressure 143/95 H Pulse Oximetry 96 96 95 12/22/21 13:31 12/22/21 13:45 12/22/21 14:00 Pulse Rate 108 H 113 H 118 H Respiratory Rate Blood Pressure 135/93 H Pulse Oximetry 94 95 95 12/22/21 14:01 12/22/21 14:15 Pulse Rate 113 H 96 H Respiratory Rate Blood Pressure 138/117 H Pulse Oximetry 95 92 MDM - Chest Pain Medical Records Data Medical records narrative: The patient's chest pain was resolved prior to arrival. Her BNP is elevated, but improved since her last visit here. On exam she has no ominous findings of CHF. Lasix has been given. Cardiac labs are reassuring. She probably has a cardiology appointment arranged, she is to follow up with her PCM to assure the appointment is in place. I also suggested she follow up with the local orthopedic surgeon for management of her knee pain. Lab Data Result diagrams: 12/22/21 08:56 12/22/21 08:56 Labs: Lab Results 12/22/21 12/22/21 12/22/21 Range/Units 08:56 08:56 08:56 WBC 7.6 (4.5-11.0) X10^3/uL RBC 5.02 (4.0-5.2) X10^6/uL Hgb 13.3 (12.0-16.0) g/dL Hct 41.8 (36-46) % MCV 83.2 (80-100) fL MCH 26.5 (26-34) PG MCHC 31.8 (30-36) % RDW 17.2 H (11.6-14.8) % Plt Count 336 (150-400) X10^3/uL Neut % (Auto) Not Reportable Lymph % (Auto) Not Reportable [place] % (Auto) Not Reportable Eos % (Auto) Not Reportable Baso % (Auto) Not Reportable Lymph # (Auto) Not Reportable [place] # (Auto) Not Reportable Baso # (Auto) Not Reportable Total Counted 100 Seg Neutrophils % 82.0 H (38-70) % Lymphocytes % (Manual) 11.0 L (25-45) % Monocytes % (Manual) 5.0 (2-11) % Eosinophils % (Manual) 2.0 (2-4) % Neutrophils # (Manual) 6232 H (6309-4131) /uL RBC Morphology See below Poikilocytosis 1+ H Anisocytosis 1+ H PT 16.5 H (10.1-12.7) SECONDS INR 1.5 H (0.9-1.3) APTT 37 H (26.4-36.2) SECONDS Sodium 139 (137-145) mmol/L Potassium 4.5 (3.4-5.1) mmol/L Chloride 105 (98-107) mmol/L Carbon Dioxide 28 (22-32) mmol/L BUN 24 H (7-17) mg/dL Creatinine 1.01 (0.52-1.04) mg/dL Estimated GFR 53.6 L (>60) mL/min BUN/Creatinine Ratio 23.8 H (6-22) Glucose 177 H (80-110) mg/dL Calcium 8.9 (8.4-10.2) mg/dL Magnesium 1.9 (1.6-2.3) mg/dL Total Bilirubin 1.3 (0.2-1.3) mg/dL AST 57 H (14-36) IU/L ALT 45 H (<35) IU/L Alkaline Phosphatase 178 H (38-126) U/L Total Creatine Kinase 38 (30-135) U/L CK-MB (CK-2) TNP CK-MB (CK-2) Rel Index TNP Troponin I 0.013 (0.01-0.034) ng/mL NT-Pro-B Natriuret Pep 6890 H (<125) pg/mL Total Protein 7.5 (6.3-8.2) g/dL Albumin 4.2 (3.5-5.0) g/dL Globulin 3.3 (1.7-4.1) g/dL Albumin/Globulin Ratio 1.3 (1.0-2.8) Lipase 13 L (23-300) U/L SARS-CoV-2 (PCR) (Negative) 12/22/21 Range/Units 08:56 WBC (4.5-11.0) X10^3/uL RBC (4.0-5.2) X10^6/uL Hgb (12.0-16.0) g/dL Hct (36-46) % MCV (80-100) fL MCH (26-34) PG MCHC (30-36) % RDW (11.6-14.8) % Plt Count (150-400) X10^3/uL Neut % (Auto) Lymph % (Auto) [place] % (Auto) Eos % (Auto) Baso % (Auto) Lymph # (Auto) [place] # (Auto) Baso # (Auto) Total Counted Seg Neutrophils % (38-70) % Lymphocytes % (Manual) (25-45) % Monocytes % (Manual) (2-11) % Eosinophils % (Manual) (2-4) % Neutrophils # (Manual) (2803-6799) /uL RBC Morphology Poikilocytosis Anisocytosis PT (10.1-12.7) SECONDS INR (0.9-1.3) APTT (26.4-36.2) SECONDS Sodium (137-145) mmol/L Potassium (3.4-5.1) mmol/L Chloride (98-107) mmol/L Carbon Dioxide (22-32) mmol/L BUN (7-17) mg/dL Creatinine (0.52-1.04) mg/dL Estimated GFR (>60) mL/min BUN/Creatinine Ratio (6-22) Glucose (80-110) mg/dL Calcium (8.4-10.2) mg/dL Magnesium (1.6-2.3) mg/dL Total Bilirubin (0.2-1.3) mg/dL AST (14-36) IU/L ALT (<35) IU/L Alkaline Phosphatase (38-126) U/L Total Creatine Kinase (30-135) U/L CK-MB (CK-2) CK-MB (CK-2) Rel Index Troponin I (0.01-0.034) ng/mL NT-Pro-B Natriuret Pep (<125) pg/mL Total Protein (6.3-8.2) g/dL Albumin (3.5-5.0) g/dL Globulin (1.7-4.1) g/dL Albumin/Globulin Ratio (1.0-2.8) Lipase (23-300) U/L SARS-CoV-2 (PCR) Negative (Negative) Imaging Data Chest x-ray: Radiologist's Impression: [address] [address] XRay Report Signed Patient: Lilliana Garcia MR#: [id number] : 1945 Acct:[id number] Age/Sex: 76 / F Date of Service: 12/22/21 Loc: ED Accession Number: [id number] ?? Procedure: XR chest 1V Ordering Provider: Mario Collins MD PROCEDURE:? XR CHEST 1V ? INDICATIONS:? chest pain ? TECHNIQUE:? One view of the chest was acquired.? ? COMPARISON:? [facility], CR, XR CHEST 1V, 05/13/2020, 10:04.? [facility], CR, CHEST 1 VIEW, 01/04/2017, 9:48.? [facility], , XR CHEST 1V, 12/14/2021, 22:40. ? FINDINGS:? ? Surgical changes and devices:? None.? ? Lungs and pleura:? Low lung volumes are noted. This causes a crowded appearance to the lung markings and limits evaluation.? Minimal blunting of the costophrenic can be seen.? No pneumothorax. ? Mediastinum:? The cardiac contours are moderately enlarged. The aorta demonstrates calcification and tortuosity. ? Bones and chest wall:? No suspicious bony lesions.? Age-appropriate bony degenerative changes are seen.? Overlying soft tissues appear unremarkable.? ? ? IMPRESSION:? Cardiomegaly and likely trace pleural effusions.? ? Low lung volumes. ? ? Dictated by: Db Kinsey M.D. on 12/22/2021 at 8:13 ? ? Approved by: Db Kinsey M.D. on 12/22/2021 at 8:15?? ECG Data Attestation: I personally reviewed and interpreted this ECG as follows: (Normal sinus rhythm rate 74 beats per minute. Left axis deviation. RBBB. LVH. Nonspecific ST T wave changes.) Discharge Plan Departure Patient Disposition: Home Clinical Impression: Chest pain, Congestive heart failure, Chronic pain of right knee Instructions: Heart Failure, DI for Chest Pain Activity Restrictions/Additional Instructions: Continue your current medications. You need to call Dr. Juarez. You need to see a thresher broomcorn regarding your heart. Also, Dr. Gramajo is a orthopedic surgeon in [place]. I would recommend you talk to Dr. Juarez about referring you to Dr. Gramajo about your knee pain. Return to the ER any time symptoms escalate. Prescriptions: No Action lamotrigine [Lamictal] 25 MG tablet 50 mg PO DAILY Qty: 0 0RF lisinopril 5 MG tablet 20 mg PO DAILY Qty: 0 0RF nitroglycerin [Nitrostat] 0.4 MG tablet, sublingual 0.4 mg Sublingual PRN PRN (Reason: Chest Pain) Qty: 0 0RF fluoxetine 40 mg capsule 40 mg PO DAILY 0RF oxybutynin chloride 5 mg tablet 5 mg PO DAILY 0RF warfarin 4 mg tablet 4 mg PO DAILY 0RF amlodipine 10 mg tablet 10 mg PO DAILY 0RF omeprazole 20 mg Capsule,Delayed Release(Dr/Ec) 20 mg PO DAILY 0RF hydralazine 50 mg tablet 50 mg PO DAILY 0RF hydrocodone-acetaminophen 10-325 mg Tablet 1 tab PO Q6H PRN (Reason: Pain (Scale Score 4-6)) 0RF Novolin 70/30 U-100 Insulin 100 unit/mL (70-30) suspension 25 unit SUBCUT DAILY 0RF Rx Instructions: Daily at 0900 metoprolol succinate 50 mg Tablet Extended Release 24 Hr 50 mg PO BID Qty: 60 0RF levofloxacin 500 mg tablet 500 mg PO DAILY Qty: 2 0RF furosemide [Lasix] 20 mg tablet 10 mg PO DAILY Qty: 30 0RF Referrals: Kenneth Gramajo MD [Non-Staff] -
[2021-12-22 09:30] LABS: NT-proBNP (BNP-Adult 18+) 6890 pg/mL (<125); Troponin I 0.013 ng/mL (0.01-0.034)
[2021-12-22 09:35] LABS: COVID19 -Nasal RAPID Negative (Negative)
[2021-12-22 09:54] LABS: Neutrophils Absolute Manual 6232 /uL (3000-5900); Total Cells Counted 100
[2021-12-22 09:56] LABS: Anisocytosis 1+; Poikilocytosis 1+
[2021-12-22] MEDS: HYDROCODONE/ACET 5/325 TABLET 2 TAB PO (10:03)
[2021-12-22] MEDS: FUROSEMIDE 40 MG/4 ML VIAL IV (11:15)
--- NOTE | 2021-12-22 14:14 | PC.NURSE ---
while doing incontinent care on patient. pt has stage 2 skin breakdown on her buttocks and multiple lesions over her body, austen paste applied. states she scratches from herself and had shingles all over her body. per pt is bed bound for 16 years. she doesn't take care of herself at home. non-ambulatory.
== END 2021-12-22 14:41 | disposition home or self-care (01) ==
PROVIDERS: Emergency Provider Emergency Medicine
DX: R07.9 Chest pain, unspecified (principal); I50.9 Heart failure, unspecified; M25.561 Pain in right knee; G89.29 Other chronic pain; F17.200 Nicotine dependence, unspecified, uncomplicated; Z79.01 Long term (current) use of anticoagulants; Z20.822 Contact with and (suspected) exposure to COVID-19
CPT/HCPCS: 36415; 71045; 80053; 82550; 83690; 83735; 83880; 84484; 85007; 85025; 85610; 85730; 87635; 93005; 96374; 99284; C9803; J1940

== ENCOUNTER 2022-01-02 02:34 | Emergency (ER) | payer MEDICARE, OTHER, SELFPAY ==
[2021-12-15 01:27] VITALS: BMI 28.9
--- NOTE | 2022-01-02 02:46 | ED_ITS ---
HPI - General Adult General Chief complaint: Shortness of Breath/Dyspnea Stated complaint: Shortness of breath Time Seen by Provider: 01/02/22 02:36 History of Present Illness HPI narrative: 76-year-old woman with a history of congestive heart failure, chronic atrial fibrillation for which she is anticoagulated on warfarin, diabetes, hypertension hyperlipidemia and reflux apparently woke in the middle of the night complaining of significant dyspnea. There are multiple smokers in the house. She was admitted to the hospital for chest pain on December 15 with similar complaints. Echocardiogram done at that time showed an ejection fraction at 30-35%. She was seen again in The emergency department on December 22 with similar dyspnea and chest pain complaints with a reassuring workup at that time. Further questioning she barely clearly describes paroxysmal nocturnal dyspnea. She was discharged from the hospital in late November on 10 mg of furosemide. That has not been a continued permanent medication. She did take her last 3 20 mg pills over the last 3 days. She currently complains of no fever no significant wheezing, no headache, palpitations, vomiting, diarrhea and has not noticed increased lower extremity edema Related Data Home Medications Medication Instructions Recorded Confirmed lamotrigine 25 mg tablet (Lamictal) 25 mg PO DAILY #0 02/01/13 01/02/22 lisinopril 5 mg tablet 20 mg PO DAILY #0 05/16/13 01/02/22 nitroglycerin 0.4 mg sublingual 0.4 mg SUBLINGUAL PRN PRN #0 05/16/13 01/02/22 tablet (Nitrostat) amlodipine 10 mg tablet 10 mg PO DAILY 12/14/21 01/02/22 fluoxetine 40 mg capsule 40 mg PO DAILY 12/14/21 01/02/22 hydralazine 50 mg tablet 50 mg PO BID 12/14/21 01/02/22 warfarin 4 mg tablet 4 mg PO 3XW 12/14/21 01/02/22 hydrocodone 10 mg-acetaminophen 1 tab PO Q6H PRN 12/15/21 01/02/22 325 mg tablet insulin human U-100 NPH-regulr 25 unit SUBCUT DAILY 12/15/21 01/02/22 70-30 mix 100 unit/mL subcutaneous susp (Novolin 70/30 U-100 Insulin) spironolactone 100 mg tablet 100 mg PO DAILY 01/02/22 01/02/22 warfarin 4 mg tablet 8 mg PO 4XW 01/02/22 01/02/22 Previous Rx's Medication Instructions Recorded metoprolol succinate 50 mg 50 mg PO BID #60 tab 12/15/21 tablet,extended release 24 hr furosemide 20 mg tablet 20 mg PO DAILY #30 tab 01/02/22 Allergies Allergy/AdvReac Type Severity Reaction Status Date / Time Penicillins [PENICILLINS] Allergy Unknown Verified 12/22/21 08:31 Review of Systems Review of Systems Narrative: Remainder of complete review of systems is otherwise unremarkable except for that included in the HPI. Patient History Medical History Acute exacerbation of CHF (congestive heart failure) Atrial fibrillation with rapid ventricular response Chronic GERD Congestive heart failure Diabetes mellitus type 2 Ischemic stroke Seizure UTI (urinary tract infection) Ventricular tachycardia (paroxysmal) Social History household members: spouse Smoking Status: Current every day smoker alcohol intake: current Smoking Status: Current every day smoker alcohol intake frequency: holidays/special occasions only Substance Use Type: does not use Exam Initial Vital Signs Initial Vital Signs: Vital Signs Temperature 96.8 F L 01/02/22 02:48 Pulse Rate 96 H 01/02/22 02:48 Respiratory Rate 18 01/02/22 02:48 Blood Pressure 136/79 01/02/22 02:48 Pulse Oximetry 97 01/02/22 02:48 General: Chronically ill-appearing but in no acute distress. Able to give a complete and coherent history despite some mild prior stroke related dysarthria HEENT: Moist mucous membranes, normal sclera with reactive pupils, Neck: No JVD, supple Respiratory: Lungs are clear to auscultation, no wheezing no rales no rhonchi. Full and symmetrical air movement Cardiac: Regular rate and rhythm no murmurs no bruits Abdomen: Soft, nontender, good bowel tones, no flank pain Skin: Warm and dry, no rashes Neurologic: Right upper and lower extremity weakness with contractures in the right hand, 1 to 2+ edema in the right lower extremity because of decreased overall use and some mild skin excoriation over the dorsum of the foot on the r ight side. Extremities: No trauma, well perfused Psych: Cooperative, appropriate insight and affect Course Orders Ordered: ED Orders 01/02/22 EKG-12 Lead Routine 01/02/22 02:45 Complete Blood Count AUTO DIFF Stat Comprehensive Metabolic Panel Stat Magnesium Stat NT-proBNP (BNP-Adult 18+) Stat Procalcitonin Stat Troponin I Stat 01/02/22 02:51 XR chest 1V Stat 01/02/22 03:01 COVID19 -Nasal swab/Pre-Proc Stat Vital Signs Vital signs: Vital Signs - 8 hr 01/02/22 02:48 Temperature 96.8 F L Pulse Rate 96 H Respiratory Rate 18 Blood Pressure 136/79 Pulse Oximetry 97 Medical Decision Making Lab Data Result diagrams: 01/02/22 02:45 01/02/22 02:45 Labs: Lab Results 01/02/22 01/02/22 01/02/22 Range/Units 02:45 02:45 02:45 WBC 7.2 (4.5-11.0) X10^3/uL RBC 5.05 (4.0-5.2) X10^6/uL Hgb 13.3 (12.0-16.0) g/dL Hct 41.2 (36-46) % MCV 81.6 (80-100) fL MCH 26.3 (26-34) PG MCHC 32.2 (30-36) % RDW 16.9 H (11.6-14.8) % Plt Count 305 (150-400) X10^3/uL Neut % (Auto) 76.4 H (50-75) % Lymph % (Auto) 13.2 L (25-40) % [place] % (Auto) 6.9 (3-14) % Eos % (Auto) 2.3 (2-4) % Baso % (Auto) 1.2 (0-2) % Neut # (Auto) 5500 (0097-5466) /uL Lymph # (Auto) 900 L (9275-8096) /uL [place] # (Auto) 500 (0-900) /uL Eos # (Auto) 200 (0-450) /uL Baso # (Auto) 100 (0-100) /uL Sodium 138 (137-145) mmol/L Potassium 4.4 (3.4-5.1) mmol/L Chloride 105 (98-107) mmol/L Carbon Dioxide 28 (22-32) mmol/L BUN 32 H (7-17) mg/dL Creatinine 1.15 H (0.52-1.04) mg/dL Estimated GFR 46.1 L (>60) mL/min BUN/Creatinine Ratio 27.8 H (6-22) Glucose 215 H (80-110) mg/dL Calcium 8.7 (8.4-10.2) mg/dL Magnesium 2.0 (1.6-2.3) mg/dL Total Bilirubin 0.7 (0.2-1.3) mg/dL AST 73 H (14-36) IU/L ALT 43 H (<35) IU/L Alkaline Phosphatase 146 H (38-126) U/L Troponin I < 0.012 (0.01-0.034) ng/mL NT-Pro-B Natriuret Pep 5210 H (<125) pg/mL Total Protein 7.3 (6.3-8.2) g/dL Albumin 4.1 (3.5-5.0) g/dL Globulin 3.2 (1.7-4.1) g/dL Albumin/Globulin Ratio 1.3 (1.0-2.8) Procalcitonin 0.04 (<0.5) ng/mL SARS-CoV-2 (PCR) (Negative) 01/02/22 Range/Units 03:06 WBC (4.5-11.0) X10^3/uL RBC (4.0-5.2) X10^6/uL Hgb (12.0-16.0) g/dL Hct (36-46) % MCV (80-100) fL MCH (26-34) PG MCHC (30-36) % RDW (11.6-14.8) % Plt Count (150-400) X10^3/uL Neut % (Auto) (50-75) % Lymph % (Auto) (25-40) % [place] % (Auto) (3-14) % Eos % (Auto) (2-4) % Baso % (Auto) (0-2) % Neut # (Auto) (0893-3528) /uL Lymph # (Auto) (5064-1227) /uL [place] # (Auto) (0-900) /uL Eos # (Auto) (0-450) /uL Baso # (Auto) (0-100) /uL Sodium (137-145) mmol/L Potassium (3.4-5.1) mmol/L Chloride (98-107) mmol/L Carbon Dioxide (22-32) mmol/L BUN (7-17) mg/dL Creatinine (0.52-1.04) mg/dL Estimated GFR (>60) mL/min BUN/Creatinine Ratio (6-22) Glucose (80-110) mg/dL Calcium (8.4-10.2) mg/dL Magnesium (1.6-2.3) mg/dL Total Bilirubin (0.2-1.3) mg/dL AST (14-36) IU/L ALT (<35) IU/L Alkaline Phosphatase (38-126) U/L Troponin I (0.01-0.034) ng/mL NT-Pro-B Natriuret Pep (<125) pg/mL Total Protein (6.3-8.2) g/dL Albumin (3.5-5.0) g/dL Globulin (1.7-4.1) g/dL Albumin/Globulin Ratio (1.0-2.8) Procalcitonin (<0.5) ng/mL SARS-CoV-2 (PCR) Negative (Negative) Imaging Data Chest x-ray: Radiologist's Impression: Diffuse interstitial densities throughout the bilateral lungs.? Fluid within the minor fissure.? Concerning for pulmonary edema possibly setting of congestive failure versus atypical infection.? Minimal blunting of the right CP angle may represent trace right pleural effusion.? Severe cardiomegaly with bilateral pulmonary vascular prominence. Ronaldo Trejo DO ECG Data Interpretation: Atrial fibrillation at a rate of 86 Left axis deviation Left ventricular hypertrophy No acute ischemic changes MDM Narrative Medical decision making narrative: 76-year-old woman with history of congestive heart failure and fairly classic presentation of paroxysmal nocturnal dyspnea causing increasing anxiety and re current trips to the emergency department. Her chest x-ray suggests continued fluid overload her clinical exam seems to be consistently improving and her BNP continues to be consistently decreasing. She has used the last of her Lasix today it appears that that has been intermittent over the last 2 weeks since her recent hospital discharge and not her usual medication. She is on 100 mg of spironolactone. Discussed with her signs and symptoms of PND, reassured her that this is a common finding with heart failure that her symptoms are very real and will feel better when she sits up a bit more and will bother her LEs as we are able to diurese her a bit further. She feels very comfortable with home discharged in is absolutely willing to continue her furosemide at 20 mg daily. Potassium is not decreased she is currently on both lisinopril and spironolactone so will not add potassium supplementation. She has a follow-up appointment with her primary care physician within the next week to follow-up on medications and recheck blood work to make sure the potassium supplementation will be required. There is no evidence of infection, acute coronary syndrome, severe anemia, reactive airway disease or sepsis. She is given an additional 40 mg of IV Lasix in the emergency department to treat her mild congestive heart failure and again reassured and educated regarding signs and symptoms associated with paroxysmal nocturnal dyspnea Discharge Plan Departure Patient Disposition: Home Clinical Impression: Congestive heart failure, Dyspnea, paroxysmal nocturnal Activity Restrictions/Additional Instructions: Thank you for coming in today I think that nighttime shortness of breath that you are experiencing is due to your heart failure. We can absolutely better manage the amount of fluid in your lungs so that you do not have these symptoms to continue to frightening you when they wake you up in the middle of the night Please continue 20 mg of Lasix/furosemide daily. A new prescription has been electronically transmitted to [facility] Please follow-up with your primary care doctor within the next 5-7 days to review your evening symptoms, whether not to continue this current dose of Lasix and to see if you need any potassium supplementation with the continued Lasix. If you have worsening symptoms or new findings, please feel free to return to the ER Prescriptions: New furosemide 20 mg tablet 20 mg PO DAILY Qty: 30 1RF No Action lamotrigine [Lamictal] 25 MG tablet 25 mg PO DAILY Qty: 0 0RF lisinopril 5 MG tablet 20 mg PO DAILY Qty: 0 0RF nitroglycerin [Nitrostat] 0.4 MG tablet, sublingual 0.4 mg Sublingual PRN PRN (Reason: Chest Pain) Qty: 0 0RF fluoxetine 40 mg capsule 40 mg PO DAILY 0RF warfarin 4 mg tablet 4 mg PO 3XW 0RF Rx Instructions: M,W,F amlodipine 10 mg tablet 10 mg PO DAILY 0RF hydralazine 50 mg tablet 50 mg PO BID 0RF hydrocodone-acetaminophen 10-325 mg Tablet 1 tab PO Q6H PRN (Reason: Pain (Scale Score 4-6)) 0RF Novolin 70/30 U-100 Insulin 100 unit/mL (70-30) suspension 25 unit SUBCUT DAILY 0RF Rx Instructions: Daily at 0900 metoprolol succinate 50 mg Tablet Extended Release 24 Hr 50 mg PO BID Qty: 60 0RF spironolactone 100 mg Tablet 100 mg PO DAILY 0RF warfarin 4 mg tablet 8 mg PO 4XW 0RF Rx Instructions: T, TH, S, S
[2022-01-02 02:48] VITALS: BP 136/79; PULSE 96; RESP 18; TEMP 36; O2SAT 97; BMI 27.6
--- NOTE | 2022-01-02 02:51 | DI.RAD.S_ITS ---
PROCEDURE: XR CHEST 1V INDICATIONS: dyspnea TECHNIQUE: One view of the chest was acquired. COMPARISON: [facility], CR, XR CHEST 1V, 12/14/2021, 22:40. [facility], CR, XR CHEST 1V, 12/22/2021, 8:59. FINDINGS: Surgical changes and devices: None. Lungs and pleura: Bilateral perihilar interstitial and airspace infiltrates consistent with pulmonary edema secondary to congestive heart failure. Mild blunting of the right costophrenic angle is likely secondary to small pleural effusion. No pneumothorax. Mediastinum: Mediastinal contours appear normal. Heart size is [id number] increased. Bones and chest wall: No suspicious bony lesions. Overlying soft tissues appear unremarkable. IMPRESSION: Congestive heart failure. No significant discrepancy with the night court magistrate radiology preliminary report. Dictated by: Lexii Harrison M.D. on 01/02/2022 at 8:06 Approved by: Lexii Harrison M.D. on 01/02/2022 at 8:08
[2022-01-02 02:57] LABS: Add Manual Diff / Slide Review NO; Basophils Absolute Auto 100 /uL (0-100); Basophils Percent Auto 1.2 % (0-2); Eosinophils Absolute Auto 200 /uL (0-450); Eosinophils Percent Auto 2.3 % (2-4); Hematocrit 41.2 % (36-46); Hemoglobin 13.3 g/dL (12.0-16.0); Lymphocytes Absolute Auto 900 /uL (1100-4500); Lymphocytes Percent Auto 13.2 % (25-40); Mean Corpuscular HGB Conc 32.2 % (30-36); Mean Corpuscular Hemoglobin 26.3 PG (26-34); Mean Corpuscular Volume 81.6 fL (80-100); Monocytes Absolute Auto 500 /uL (0-900); Monocytes Percent Auto 6.9 % (3-14); Neutrophils Absolute Auto 5500 /uL (1500-7000); Neutrophils Percent Auto 76.4 % (50-75); Platelet Count 305 X10^3/uL (150-400); Red Blood Cell Count 5.05 X10^6/uL (4.0-5.2); Red Cell Distribution Width 16.9 % (11.6-14.8); White Blood Cell Count 7.2 X10^3/uL (4.5-11.0)
[2022-01-02 03:04] LABS: Alanine Aminotransferase 43 IU/L (<35); Albumin 4.1 g/dL (3.5-5.0); Albumin Globulin Ratio 1.3 (1.0-2.8); Alkaline Phosphatase 146 U/L (38-126); Aspartate Aminotransferase 73 IU/L (14-36); BUN Creatinine Ratio 27.8 (6-22); Bilirubin Total 0.7 mg/dL (0.2-1.3); Blood Urea Nitrogen 32 mg/dL (7-17); Calcium 8.7 mg/dL (8.4-10.2); Carbon Dioxide 28 mmol/L (22-32); Chloride 105 mmol/L (98-107); Estimated Glomerular Filt Rate 46.1 mL/min (>60); Globulin 3.2 g/dL (1.7-4.1); Glucose 215 mg/dL (80-110); HEMOLYSIS < 15 (0-50); Potassium 4.4 mmol/L (3.4-5.1); Sodium 138 mmol/L (137-145); Total Protein 7.3 g/dL (6.3-8.2)
[2022-01-02 03:16] LABS: NT-proBNP (BNP-Adult 18+) 5210 pg/mL (<125); Troponin I < 0.012 ng/mL (0.01-0.034)
[2022-01-02 03:20] LABS: Procalcitonin 0.04 ng/mL (<0.5)
[2022-01-02 03:25] LABS: COVID19 -Nasal RAPID Negative (Negative)
[2022-01-02] MEDS: FUROSEMIDE 40 MG/4 ML VIAL IV (04:00)
[2022-01-02 05:03] VITALS: BP 145/103; PULSE 74; RESP 16; O2SAT 98
== END 2022-01-02 05:04 | disposition home or self-care (01) ==
PROVIDERS: Emergency Provider Emergency Medicine
DX: I50.9 Heart failure, unspecified (principal); R06.09 Other forms of dyspnea; I48.91 Unspecified atrial fibrillation; Z79.01 Long term (current) use of anticoagulants; Z20.822 Contact with and (suspected) exposure to COVID-19
CPT/HCPCS: 36415; 71045; 80053; 83735; 83880; 84145; 84484; 85025; 87635; 93005; 93010; 96374; 99284; C9803; J1940

== ENCOUNTER 2022-01-04 09:54 | Emergency (ER) | payer MEDICARE, OTHER, SELFPAY ==
[2021-12-15 01:27] VITALS: BMI 28.9
[2022-01-04] VITALS (23 sets, daily range): BP systolic 136–170; BP diastolic 82–114; PULSE 79–120; RESP 18–196; TEMP 35.9–36.6; O2SAT 95–99; BMI 28.5
--- NOTE | 2022-01-04 09:57 | DI.RAD.S_ITS ---
PROCEDURE: XR CHEST 1V INDICATIONS: chest pain/short of breath TECHNIQUE: One view of the chest was acquired. COMPARISON: [facility], CR, XR CHEST 1V, 12/14/2021, 22:40. [facility], CR, XR CHEST 1V, 12/22/2021, 8:59. [facility], CR, XR CHEST 1V, 01/02/2022, 2:56. FINDINGS: Surgical changes and devices: None. Lungs and pleura: On this semiupright portable chest examination, no large pneumothorax or large pleural effusions are seen. No focal infiltrates are seen. Mild generalized interstitial prominence can be seen. Mediastinum: The cardiac contours are mildly enlarged. The aorta demonstrates calcification and tortuosity. Bones and chest wall: No suspicious bony lesions. Age-appropriate bony degenerative changes are seen. Overlying soft tissues appear unremarkable. IMPRESSION: Cardiomegaly is seen, which is improved compared to the prior study. Mild interstitial prominence can be seen. These imaging findings are most compatible with resolving congestive heart failure. Dictated by: Db Kinsey M.D. on 01/04/2022 at 9:52 Approved by: Db Kinsey M.D. on 01/04/2022 at 9:53
--- NOTE | 2022-01-04 10:03 | ED.ABDPAIN ---
HPI - Abdominal Pain General Chief Complaint: Chest Pain Stated Complaint: Anxiety, epigastric cp Time Seen by Provider: 01/04/22 09:56 History of Present Illness HPI narrative: 76-year-old female daily smoker with history of CHF, paroxysmal nocturnal dyspnea, hypertension, ischemic stroke, atrial fibrillation is comfort measures and presents by EMS for evaluation of epigastric pain started sometime in the middle of the night. It is worse with deep breath, palpation and motion. It is associated with nausea but no vomiting. She denies any radiation of this pain. She has had no fever or chills. She denies any change in medications or diet. She does carry a diagnosis of nocturnal dyspnea and denies any change in her level of shortness of breath. Related Data Home Medications Medication Instructions Recorded Confirmed lamotrigine 25 mg tablet (Lamictal) 25 mg PO DAILY #0 02/01/13 01/02/22 lisinopril 5 mg tablet 20 mg PO DAILY #0 05/16/13 01/02/22 nitroglycerin 0.4 mg sublingual 0.4 mg SUBLINGUAL PRN PRN #0 05/16/13 01/02/22 tablet (Nitrostat) amlodipine 10 mg tablet 10 mg PO DAILY 12/14/21 01/02/22 fluoxetine 40 mg capsule 40 mg PO DAILY 12/14/21 01/02/22 hydralazine 50 mg tablet 50 mg PO BID 12/14/21 01/02/22 warfarin 4 mg tablet 4 mg PO 3XW 12/14/21 01/02/22 hydrocodone 10 mg-acetaminophen 1 tab PO Q6H PRN 12/15/21 01/02/22 325 mg tablet insulin human U-100 NPH-regulr 25 unit SUBCUT DAILY 12/15/21 01/02/22 70-30 mix 100 unit/mL subcutaneous susp (Novolin 70/30 U-100 Insulin) spironolactone 100 mg tablet 100 mg PO DAILY 01/02/22 01/02/22 warfarin 4 mg tablet 8 mg PO 4XW 01/02/22 01/02/22 Previous Rx's Medication Instructions Recorded metoprolol succinate 50 mg 50 mg PO BID #60 tab 12/15/21 tablet,extended release 24 hr furosemide 20 mg tablet 20 mg PO DAILY #30 tab 01/02/22 lorazepam 0.5 mg tablet (Ativan) 0.5 mg PO BEDTIME PRN #10 tab 01/04/22 Allergies Allergy/AdvReac Type Severity Reaction Status Date / Time Penicillins [PENICILLINS] Allergy Unknown Verified 12/22/21 08:31 Review of Systems Review of Systems Narrative: GENERAL: Denies chills, fatigue, malaise, fever, sweats. HEENT: Denies sinus pain, ear pain, sore throat, difficulty swallowing, dizziness. RESPIRATORY: See HPI CARDIOVASCULAR: See HPI GASTROINTESTINAL: See HPI : Denies dysuria, frequency, incontinence, hematuria, urinary retention. MUSCULOSKELETAL: denies weakness, joint pain, or bony pain SKIN: Denies rash, skin lesions, or other NEUROLOGIC: Denies weakness, headache, numbness, change in speech, confusion, seizures, incoordination. PSYCHIATRIC: No concerning psychosocial issues. 12 point review of systems is negative except for those stated above Patient History Medical History Acute exacerbation of CHF (congestive heart failure) Atrial fibrillation with rapid ventricular response Chronic GERD Congestive heart failure Diabetes mellitus type 2 Ischemic stroke Seizure UTI (urinary tract infection) Ventricular tachycardia (paroxysmal) Social History household members: spouse Smoking Status: Current every day smoker alcohol intake: current Smoking Status: Current every day smoker alcohol intake frequency: holidays/special occasions only Substance Use Type: does not use Exam Narrative Exam Narrative: GENERAL: [76 year old patient appears stated age. Well-developed patient, in mild distress. HEAD: Atraumatic. Normocephalic. EYES: Pupils equal round and reactive. Extraocular motions intact. No scleral icterus. No injection or drainage. ENT: Nose without bleeding, purulent drainage. Throat without erythema, tonsillar hypertrophy or exudate. Airway patent. NECK: Trachea midline. Non tender CARDIOVASCULAR: Regular rate and rhythm without murmurs, gallops, or rubs. RESPIRATORY: Clear to auscultation. Breath sounds equal bilaterally. No wheezes, rales, or rhonchi. GASTROINTESTINAL: Abdomen soft, tender to palpation in epigastrium nondistended. EXTREMITIES: No edema or joint tenderness. BACK: Nontender without deformity or crepitance. No flank tenderness. NEURO: AOx3. SKIN: No rash or erythema of visible areas Initial Vital Signs Initial Vital Signs: Vital Signs Temperature 96.6 F L 01/04/22 09:54 Pulse Rate 120 H 01/04/22 09:54 Respiratory Rate 20 01/04/22 09:54 Blood Pressure 143/109 H 01/04/22 09:54 Pulse Oximetry 98 01/04/22 09:54 Course Orders Ordered: ED Orders 01/04/22 11:23 US abdomen limited Stat 01/04/22 14:05 CT chest abd pel w con Stat Discontinued Medications Hydrocodone Bitart/Acetaminophen (Hydrocodone/Acet 10/325 Tablet) 1 tab PO NOW ONE Stop: 01/04/22 15:17 Last Admin: 01/04/22 15:24 Dose: 1 tab Documented by: ANN MARIE Furosemide (Furosemide 40 Mg/4 Ml Vial) 20 mg IV NOW ONE Stop: 01/04/22 11:24 Last Admin: 01/04/22 11:53 Dose: 20 mg Documented by: CAROLANN Sodium Chloride (Normal Saline 0.9%) 1,000 mls @ 150 mls/hr IV CONT KAYLAN Last Infusion: 01/04/22 16:11 Dose: 0 mls/hr Documented by: Infusion: 01/04/22 16:11 Dose: 0 mls/hr Documented by: Admin: 01/04/22 10:59 Dose: 150 mls/hr Documented by: CAROLANN Metoprolol Tartrate (Metoprolol Ir 25 Mg Tablet) 50 mg PO NOW ONE Stop: 01/04/22 14:06 Last Admin: 01/04/22 14:12 Dose: 50 mg Documented by: ANN MARIE Ondansetron HCl (Ondansetron 4 Mg/2 Ml Inj) 4 mg IV NOW ONE Stop: 01/04/22 11:24 Last Admin: 01/04/22 11:53 Dose: 4 mg Documented by: CAROLANN Vital Signs Vital signs: Vital Signs - 8 hr 01/04/22 11:30 01/04/22 11:31 01/04/22 12:00 Temperature Pulse Rate 107 H 101 H 101 H Respiratory Rate 25 H Blood Pressure 161/102 H 158/112 H Pulse Oximetry 97 98 99 01/04/22 12:30 01/04/22 13:00 01/04/22 13:01 Temperature Pulse Rate 106 H 96 H 88 Respiratory Rate 196 H 20 20 Blood Pressure 166/95 H 162/114 H 170/82 H Pulse Oximetry 96 97 97 01/04/22 13:32 01/04/22 13:33 01/04/22 14:00 Temperature Pulse Rate 91 H 103 H 99 H Respiratory Rate 20 20 20 Blood Pressure 149/85 H Pulse Oximetry 96 95 98 01/04/22 14:01 01/04/22 14:30 01/04/22 15:00 Temperature Pulse Rate 98 H 106 H 93 H Respiratory Rate 20 20 21 Blood Pressure 156/84 H Pulse Oximetry 97 97 96 01/04/22 15:15 01/04/22 15:30 01/04/22 16:00 Temperature Pulse Rate 106 H 93 H 109 H Respiratory Rate 21 20 20 Blood Pressure 148/88 H 145/88 H Pulse Oximetry 96 96 97 01/04/22 16:24 01/04/22 16:25 01/04/22 17:30 Temperature 98 F 98 F Pulse Rate 86 79 Respiratory Rate 18 18 Blood Pressure 136/104 H 138/98 H Pulse Oximetry 98 96 MDM - Abdominal Pain Lab Data Result diagrams: 01/04/22 09:58 01/04/22 09:58 Labs: Lab Results 01/04/22 01/04/22 01/04/22 Range/Units 09:58 09:58 09:58 WBC 7.5 (4.5-11.0) X10^3/uL RBC 5.06 (4.0-5.2) X10^6/uL Hgb 13.3 (12.0-16.0) g/dL Hct 41.4 (36-46) % MCV 81.8 (80-100) fL MCH 26.2 (26-34) PG MCHC 32.1 (30-36) % RDW 16.8 H (11.6-14.8) % Plt Count 331 (150-400) X10^3/uL Neut % (Auto) 72.5 (50-75) % Lymph % (Auto) 18.5 L (25-40) % [place] % (Auto) 7.3 (3-14) % Eos % (Auto) 0.6 L (2-4) % Baso % (Auto) 1.1 (0-2) % Neut # (Auto) 5500 (0256-4107) /uL Lymph # (Auto) 1400 (8915-1364) /uL [place] # (Auto) 500 (0-900) /uL Eos # (Auto) 0 (0-450) /uL Baso # (Auto) 100 (0-100) /uL PT 17.5 H (10.1-12.7) SECONDS INR 1.6 H (0.9-1.3) D-Dimer 483 H (<230) ng/mL Sodium 138 (137-145) mmol/L Potassium 4.3 (3.4-5.1) mmol/L Chloride 101 (98-107) mmol/L Carbon Dioxide 30 (22-32) mmol/L BUN 26 H (7-17) mg/dL Creatinine 0.97 (0.52-1.04) mg/dL Estimated GFR 56.1 L (>60) mL/min BUN/Creatinine Ratio 26.8 H (6-22) Glucose 251 H (80-110) mg/dL Calcium 9.3 (8.4-10.2) mg/dL Total Bilirubin 1.7 H (0.2-1.3) mg/dL AST 39 H (14-36) IU/L ALT 63 H (<35) IU/L Alkaline Phosphatase 164 H (38-126) U/L Total Creatine Kinase 43 (30-135) U/L CK-MB (CK-2) TNP CK-MB (CK-2) Rel Index TNP Troponin I 0.014 (0.01-0.034) ng/mL NT-Pro-B Natriuret Pep 29652 H (<125) pg/mL Total Protein 7.6 (6.3-8.2) g/dL Albumin 4.2 (3.5-5.0) g/dL Globulin 3.4 (1.7-4.1) g/dL Albumin/Globulin Ratio 1.2 (1.0-2.8) Lipase 21 L (23-300) U/L Procalcitonin 0.05 (<0.5) ng/mL Imaging Data US - abdomen: Radiologist's Impression: [address] [address] Ultrasound Report Signed Patient: Lilliana Garcia MR#: [id number] : 1945 Acct:[id number] Age/Sex: 76 / F Date of Service: 01/04/22 Loc: ED Accession Number: [id number] ?? Procedure: US abdomen limited Ordering Provider: Narinder Wheeler D.O. PROCEDURE:? US ABDOMEN LIMITED ? INDICATIONS:? SEVERE EPIGASTRIC PAIN ? TECHNIQUE:? Real-time scanning was performed of the abdominal and retroperitoneal organs, with image documentation.? ? COMPARISON:? None. ? FINDINGS:? ? Liver:? Liver is enlarged with steatosis measuring 17.1 cm. ? Gallbladder:? Foci of increased echogenicity, unable to assess mobility, are present within the gallbladder lumen.? Wall thickness is within normal limits measuring 1.8 mm. ? Biliary ducts:? Not well seen. ? Pancreas:? Not well seen. ? ? ? IMPRESSION:? ? Limited exam secondary to patient body habitus. ? Hepatic steatosis with hepatomegaly. ? Gallbladder stones versus polyps without wall thickening. ? Dictated by: Bee Suazo M.D. on 01/04/2022 at 12:29 ? ? Approved by: Bee Suazo M.D. on 01/04/2022 at 12:30? CT scan - chest: Radiologist's Impression: Lilliana Garcia??76??F??1945 ? Allergy/Adv: Penicillins Close Chest/Abdomen/Pelvis CT (Signed) Jaleel Medrano - 01/04/22 Abdomen Ultrasound (Signed) Bee Suazo - 01/04/22 Chest X-Ray (Signed) Db Kinsey - 01/04/22 Chest X-Ray (Signed) Karis Harrison - 01/02/22 Chest X-Ray (Signed) Db Kinsey - 12/22/21 Echocardiogram Ultrasound (Signed) Octavio Vora - 12/15/21 Telemetry Strips 12/15/21 Chest X-Ray (Signed) Rod Lara - 12/14/21 Knee X-Ray (Signed) Jaycob Smalls - 05/13/20 Chest X-Ray (Signed) Db Kinsey - 05/13/20 Radiology - Historical 01/04/17 Launch?[address] [address] [address] Scan Report Signed Patient: Lilliana Garcia MR#: [id number] : 1945 Acct:[id number] Age/Sex: 76 / F Date of Service: 01/04/22 Loc: ED Accession Number: [id number] ?? Procedure: CT chest abd pel w con Ordering Provider: Narinder Wheeler D.O. PROCEDURE:? CT CHEST ABD PEL W CON ? INDICATIONS:? chest pain, SOB, abdominal pain ? TECHNIQUE:? After the administration of intravenous contrast, 5 mm thick sections acquired from the lung apices to the symphysis.? 2.5 mm thick coronal and sagittal reformats were acquired.? Additional 7 mm thick coronal maximum intensity projection (MIP) reformats acquired through the lungs.? Optional 10-minute delayed imaging may be performed from the kidneys to the bladder.? For radiation dose reduction, the following was used:? automated exposure control, adjustment of mA and/or kV according to patient size.? ? COMPARISON:? None. ? FINDINGS: ? Chest: ? Cardiovascular:? Heart size is normal.? No evidence of pulmonary embolism, aortic aneurysm or dissection. ? Lungs and pleural spaces:? The lung zavala are clear without nodule, infiltrate or interstitial prominence.? Pleural spaces show no effusion or pneumothorax.? Bilateral subpleural chronic interstitial changes noted. ? Lymph nodes:? Mediastinal very node measures 1 cm in short axis.? No hilar or axillary adenopathy. ? Mediastinum:? Unremarkable.? Moderate hiatal hernia noted. Thyroid within normal limits. ? Chest Wall and Bones:? Unremarkable.? No acute fracture.? Glenohumeral joint space narrowing. ? Abdomen and Pelvis: ? Liver:? Normal in size and attenuation. No contour deformity present. Biliary system:? No calcified cholelithiasis or pericholecystic inflammation.? No intra or extrahepatic bile duct dilatation. ? Pancreas:? Unremarkable without mass or inflammation evident. ? Spleen:? Normal in size and density. ? Adrenals:? Hypertrophy noted involving both adrenal glands.? 1.5 cm left adrenal low-density nodule noted. ? Reproductive system:? Unremarkable as visualized. ? Urinary system:? Normal renal size and attenuation. No renal calculi, hydronephrosis, or solid mass present.? Urinary bladder unremarkable. ? Gastrointestinal system:? The bowel is unremarkable with no evidence of bowel obstruction or inflammation. The stomach appears unremarkable.? No findings to suggest acute appendicitis. ? Lymph nodes:? No mesenteric or retroperitoneal adenopathy. ? Peritoneal spaces: ? No free air. No free fluid.? ? Vasculature:? The IVC, aorta and iliac vasculature are unremarkable. ? Abdominal wall:? Abdominal wall intact without evidence of ventral or inguinal hernias. ? Musculoskeletal:? Normal bone mineralization.? Degenerative disc disease and arthropathy noted in lower lumbar spine.? Moderate L4-5 central stenosis present.? No acute fractures.? ? IMPRESSION: ? 1. No acute CT findings in the chest, abdomen and pelvis. 2. Moderate hiatal hernia noted.? 3. Borderline mediastinal node measures 1 cm short axis 4. Bilateral adrenal hypertrophy with low-density 1.5 cm nodule on the left, probable adenoma. ? Approved by: Jaleel Medrano M.D. on 01/04/2022 at 14:33? [facility] Narrative Medical decision making narrative: Patient's pain is well controlled, heart rate is down into the 80s, she reports no chest pain or shortness of breath. Her reassuring. There is no evidence of any finding that would require specific intervention. Patient is feeling well and not only is appropriate for discharge but is requesting discharge. She did ask for a small course of Ativan to help with her ?nerves? which seemed to really act up at night. She has had this in the past and it seemed to help. She has been given return precautions and questions have been answered to her apparent satisfaction Discharge Plan Departure Patient Disposition: Home Clinical Impression: Acute epigastric pain, Chronic knee pain, Anxiety Instructions: DI for Abdominal Pain-Adult Activity Restrictions/Additional Instructions: *You have been diagnosed with [epigastric pain, nightly anxiety, and chronic knee pain. Your history and physical exam are very reassuring, labs are unremarkable and various CT scan showed no significant findings. *What to do: *Please continue to take your regular medications as directed. [ x] New medication prescriptions sent to your pharmacy: [[facility] ] [ ] New medication written as a paper prescription [ ] No new medications given *Please follow up with your primary care provider in 2-3 days, call for an appointment. Let them know you were seen in the Emergency Department and that we ask that you be seen in follow up. We will electronically transmit a record of today's note if your PCP is in our system *If you do not have a primary care provider please contact the [facility] Resource line at [phone]. They will ask some questions about your medical history and help get you set up with a doctor in the community. *Return to Emergency Department if you should have any new, worsening or concerning symptoms, such as [fever greater than 101 F, shaking chills, worsening pain, persistent vomiting or other bothersome symptoms] Prescriptions: New lorazepam [Ativan] 0.5 mg tablet 0.5 mg PO BEDTIME PRN (Reason: anxiety) Qty: 10 0RF No Action lamotrigine [Lamictal] 25 MG tablet 25 mg PO DAILY Qty: 0 0RF lisinopril 5 MG tablet 20 mg PO DAILY Qty: 0 0RF nitroglycerin [Nitrostat] 0.4 MG tablet, sublingual 0.4 mg Sublingual PRN PRN (Reason: Chest Pain) Qty: 0 0RF fluoxetine 40 mg capsule 40 mg PO DAILY 0RF warfarin 4 mg tablet 4 mg PO 3XW 0RF Rx Instructions: M,W,F amlodipine 10 mg tablet 10 mg PO DAILY 0RF hydralazine 50 mg tablet 50 mg PO BID 0RF hydrocodone-acetaminophen 10-325 mg Tablet 1 tab PO Q6H PRN (Reason: Pain (Scale Score 4-6)) 0RF Novolin 70/30 U-100 Insulin 100 unit/mL (70-30) suspension 25 unit SUBCUT DAILY 0RF Rx Instructions: Daily at 0900 metoprolol succinate 50 mg Tablet Extended Release 24 Hr 50 mg PO BID Qty: 60 0RF spironolactone 100 mg Tablet 100 mg PO DAILY 0RF warfarin 4 mg tablet 8 mg PO 4XW 0RF Rx Instructions: T, TH, S, S furosemide 20 mg tablet 20 mg PO DAILY Qty: 30 1RF Referrals: Eric Juarez MD [Primary Care Provider] -
[2022-01-04 10:11] LABS: Add Manual Diff / Slide Review NO; Basophils Absolute Auto 100 /uL (0-100); Basophils Percent Auto 1.1 % (0-2); Eosinophils Absolute Auto 0 /uL (0-450); Eosinophils Percent Auto 0.6 % (2-4); Hematocrit 41.4 % (36-46); Hemoglobin 13.3 g/dL (12.0-16.0); Lymphocytes Absolute Auto 1400 /uL (1100-4500); Lymphocytes Percent Auto 18.5 % (25-40); Mean Corpuscular HGB Conc 32.1 % (30-36); Mean Corpuscular Hemoglobin 26.2 PG (26-34); Mean Corpuscular Volume 81.8 fL (80-100); Monocytes Absolute Auto 500 /uL (0-900); Monocytes Percent Auto 7.3 % (3-14); Neutrophils Absolute Auto 5500 /uL (1500-7000); Neutrophils Percent Auto 72.5 % (50-75); Platelet Count 331 X10^3/uL (150-400); Red Blood Cell Count 5.06 X10^6/uL (4.0-5.2); Red Cell Distribution Width 16.8 % (11.6-14.8); White Blood Cell Count 7.5 X10^3/uL (4.5-11.0)
[2022-01-04 10:13] LABS: INR 1.6 (0.9-1.3); Prothrombin Time 17.5 SECONDS (10.1-12.7)
[2022-01-04 10:16] LABS: D Dimer 483 ng/mL (<230)
[2022-01-04 10:17] LABS: Alanine Aminotransferase 63 IU/L (<35); Albumin 4.2 g/dL (3.5-5.0); Albumin Globulin Ratio 1.2 (1.0-2.8); Alkaline Phosphatase 164 U/L (38-126); Aspartate Aminotransferase 39 IU/L (14-36); BUN Creatinine Ratio 26.8 (6-22); Bilirubin Total 1.7 mg/dL (0.2-1.3); Blood Urea Nitrogen 26 mg/dL (7-17); Calcium 9.3 mg/dL (8.4-10.2); Carbon Dioxide 30 mmol/L (22-32); Chloride 101 mmol/L (98-107); Creatine Kinase 43 U/L (30-135); Estimated Glomerular Filt Rate 56.1 mL/min (>60); Globulin 3.4 g/dL (1.7-4.1); Glucose 251 mg/dL (80-110); HEMOLYSIS < 15 (0-50); Lipase 21 U/L (23-300); Potassium 4.3 mmol/L (3.4-5.1); Sodium 138 mmol/L (137-145); Total Protein 7.6 g/dL (6.3-8.2)
[2022-01-04 10:29] LABS: NT-proBNP (BNP-Adult 18+) 10500 pg/mL (<125); Troponin I 0.014 ng/mL (0.01-0.034)
[2022-01-04 10:33] LABS: Procalcitonin 0.05 ng/mL (<0.5)
[2022-01-04] MEDS: SODIUM CHLORIDE 0.9% 1,000 ML 150 ML IV (10:59)
--- NOTE | 2022-01-04 11:23 | DI.US.S_ITS ---
PROCEDURE: US ABDOMEN LIMITED INDICATIONS: SEVERE EPIGASTRIC PAIN TECHNIQUE: Real-time scanning was performed of the abdominal and retroperitoneal organs, with image documentation. COMPARISON: None. FINDINGS: Liver: Liver is enlarged with steatosis measuring 17.1 cm. Gallbladder: Foci of increased echogenicity, unable to assess mobility, are present within the gallbladder lumen. Wall thickness is within normal limits measuring 1.8 mm. Biliary ducts: Not well seen. Pancreas: Not well seen. IMPRESSION: Limited exam secondary to patient body habitus. Hepatic steatosis with hepatomegaly. Gallbladder stones versus polyps without wall thickening. Dictated by: Bee Suazo M.D. on 01/04/2022 at 12:29 Approved by: Bee Suazo M.D. on 01/04/2022 at 12:30
[2022-01-04] MEDS: ONDANSETRON 4 MG/2 ML INJ IV (11:53)
[2022-01-04] MEDS: FUROSEMIDE 40 MG/4 ML VIAL 20 MG IV (11:53)
--- NOTE | 2022-01-04 14:05 | DI.CT.S_ITS ---
PROCEDURE: CT CHEST ABD PEL W CON INDICATIONS: chest pain, SOB, abdominal pain TECHNIQUE: After the administration of intravenous contrast, 5 mm thick sections acquired from the lung apices to the symphysis. 2.5 mm thick coronal and sagittal reformats were acquired. Additional 7 mm thick coronal maximum intensity projection (MIP) reformats acquired through the lungs. Optional 10-minute delayed imaging may be performed from the kidneys to the bladder. For radiation dose reduction, the following was used: automated exposure control, adjustment of mA and/or kV according to patient size. COMPARISON: None. FINDINGS: Chest: Cardiovascular: Heart size is normal. No evidence of pulmonary embolism, aortic aneurysm or dissection. Lungs and pleural spaces: The lung zavala are clear without nodule, infiltrate or interstitial prominence. Pleural spaces show no effusion or pneumothorax. Bilateral subpleural chronic interstitial changes noted. Lymph nodes: Mediastinal very node measures 1 cm in short axis. No hilar or axillary adenopathy. Mediastinum: Unremarkable. Moderate hiatal hernia noted. Thyroid within normal limits. Chest Wall and Bones: Unremarkable. No acute fracture. Glenohumeral joint space narrowing. Abdomen and Pelvis: Liver: Normal in size and attenuation. No contour deformity present. Biliary system: No calcified cholelithiasis or pericholecystic inflammation. No intra or extrahepatic bile duct dilatation. Pancreas: Unremarkable without mass or inflammation evident. Spleen: Normal in size and density. Adrenals: Hypertrophy noted involving both adrenal glands. 1.5 cm left adrenal low-density nodule noted. Reproductive system: Unremarkable as visualized. Urinary system: Normal renal size and attenuation. No renal calculi, hydronephrosis, or solid mass present. Urinary bladder unremarkable. Gastrointestinal system: The bowel is unremarkable with no evidence of bowel obstruction or inflammation. The stomach appears unremarkable. No findings to suggest acute appendicitis. Lymph nodes: No mesenteric or retroperitoneal adenopathy. Peritoneal spaces: No free air. No free fluid. Vasculature: The IVC, aorta and iliac vasculature are unremarkable. Abdominal wall: Abdominal wall intact without evidence of ventral or inguinal hernias. Musculoskeletal: Normal bone mineralization. Degenerative disc disease and arthropathy noted in lower lumbar spine. Moderate L4-5 central stenosis present. No acute fractures. IMPRESSION: 1. No acute CT findings in the chest, abdomen and pelvis. 2. Moderate hiatal hernia noted. 3. Borderline mediastinal node measures 1 cm short axis 4. Bilateral adrenal hypertrophy with low-density 1.5 cm nodule on the left, probable adenoma. Approved by: Jaleel Medrano M.D. on 01/04/2022 at 14:33
[2022-01-04] MEDS: METOPROLOL IR 25 MG TABLET 50 MG PO (14:12)
[2022-01-04] MEDS: HYDROCODONE/ACET 10/325 TABLET 1 TAB PO (15:24)
== END 2022-01-04 17:30 | disposition home or self-care (01) ==
PROVIDERS: Emergency Provider Emergency Medicine; PCP Internal Medicine
DX: R10.13 Epigastric pain (principal); M25.569 Pain in unspecified knee; G89.29 Other chronic pain; F41.9 Anxiety disorder, unspecified; F17.200 Nicotine dependence, unspecified, uncomplicated
CPT/HCPCS: 36415; 71045; 71260; 74177; 76705; 80053; 82550; 83690; 83880; 84145; 84484; 85025; 85379; 85610; 93005; 93010; 96361; 96374; 96375; 99284; J1940; J2405; Q9967

== ENCOUNTER 2022-01-10 22:25 | Inpatient (IN) | payer MEDICARE, OTHER, SELFPAY ==
[2021-12-15 01:27] VITALS: BMI 28.9
[2022-01-10 22:31] VITALS: BP 144/102; PULSE 104; RESP 24; TEMP 36.6; O2SAT 96
--- NOTE | 2022-01-10 22:39 | DI.RAD.S_ITS ---
PROCEDURE: XR CHEST 1V INDICATIONS: chest pain TECHNIQUE: One view of the chest was acquired. COMPARISON: [facility], CR, XR CHEST 1V, 01/02/2022, 2:56. [facility], CR, XR CHEST 1V, 01/04/2022, 10:31. FINDINGS: There is rotation. Surgical changes and devices: None. Lungs and pleura: Bilateral interstitial infiltrates consistent with mild pulmonary edema. No pleural effusions or pneumothorax. Mediastinum: Mediastinal contours appear patent, most likely secondary to rotation. Heart size is moderately increased. Bones and chest wall: No suspicious bony lesions. Overlying soft tissues appear unremarkable. IMPRESSION: 1. Moderate cardiomegaly and mild congestive heart failure. 2. Widening of mediastinum is likely caused by rotation. If clinically indicated, a repeat standard 2-view chest x-ray would be helpful. Dictated by: Lexii Harrison M.D. on 01/10/2022 at 23:33 Approved by: Lexii Harrison M.D. on 01/10/2022 at 23:35
[2022-01-10 22:52] LABS: Add Manual Diff / Slide Review NO; Basophils Absolute Auto 100 /uL (0-100); Basophils Percent Auto 0.8 % (0-2); Eosinophils Absolute Auto 100 /uL (0-450); Eosinophils Percent Auto 0.7 % (2-4); Hematocrit 39.7 % (36-46); Hemoglobin 12.8 g/dL (12.0-16.0); Lymphocytes Absolute Auto 1500 /uL (1100-4500); Lymphocytes Percent Auto 18.4 % (25-40); Mean Corpuscular HGB Conc 32.3 % (30-36); Mean Corpuscular Hemoglobin 26.2 PG (26-34); Mean Corpuscular Volume 81.1 fL (80-100); Monocytes Absolute Auto 800 /uL (0-900); Monocytes Percent Auto 9.5 % (3-14); Neutrophils Absolute Auto 5800 /uL (1500-7000); Neutrophils Percent Auto 70.6 % (50-75); Platelet Count 272 X10^3/uL (150-400); Red Blood Cell Count 4.89 X10^6/uL (4.0-5.2); Red Cell Distribution Width 17.8 % (11.6-14.8); White Blood Cell Count 8.3 X10^3/uL (4.5-11.0)
[2022-01-10 23:00] LABS: Alanine Aminotransferase 39 IU/L (<35); Albumin Globulin Ratio 1.3 (1.0-2.8); Alkaline Phosphatase 132 U/L (38-126); Aspartate Aminotransferase 46 IU/L (14-36); BUN Creatinine Ratio 24.8 (6-22); Bilirubin Total 2.1 mg/dL (0.2-1.3); Blood Urea Nitrogen 29 mg/dL (7-17); Calcium 8.9 mg/dL (8.4-10.2); Carbon Dioxide 29 mmol/L (22-32); Chloride 101 mmol/L (98-107); Estimated Glomerular Filt Rate 45.2 mL/min (>60); Globulin 3.2 g/dL (1.7-4.1); Glucose 189 mg/dL (80-110); HEMOLYSIS < 15 (0-50); Lipase 16 U/L (23-300); Potassium 3.8 mmol/L (3.4-5.1); Sodium 136 mmol/L (137-145); Total Protein 7.2 g/dL (6.3-8.2)
[2022-01-10 23:01] LABS: Creatine Kinase 86 U/L (30-135)
[2022-01-10 23:06] LABS: COVID19 -Nasal RAPID Negative (Negative)
[2022-01-10 23:07] VITALS: PULSE 53; O2SAT 83
[2022-01-10 23:08] VITALS: BP 146/103; PULSE 95; O2SAT 94
[2022-01-10 23:12] LABS: Troponin I 0.037 ng/mL (0.01-0.034)
--- NOTE | 2022-01-10 23:20 | ED_ITS ---
HPI - Nausea/Vomiting/Diarrhea General Chief complaint: Nausea/Vomiting/Diarrhea Stated complaint: vomiting,sob Time Seen by Provider: 01/10/22 22:54 Source: patient and EMS Mode of arrival: EMS Limitations: no limitations History of Present Illness HPI Narrative: Female comes in today with complaint of shortness of breath as well as nausea and vomiting and diarrhea that is been persistent patient is having difficulty even making it to the bathroom. She states she has had persistent shortness of breath for several weeks it has been increasing over time. She felt clammy and fever she yesterday with some chills. She has had some increasing cough that is been phlegmy and thick. She has had some nausea and vomiting but vomiting sounds like it has not been persistent. She has had frequent diarrhea starting overnight and today. She denies any melena or hematochezia. She has had occasional epigastric pain but not persistent. She denies any chest pain or pressure. Patient states she had Ativan started recently but no other new medication changes. 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 Patient states she has been seen 3 times recently in the ER and by other individuals. She is accompanied by her daughter today, family assist her at home but they have found her increasing needs are out pacing their ability. Related Data Home Medications Medication Instructions Recorded Confirmed lamotrigine 25 mg tablet (Lamictal) 25 mg PO DAILY #0 02/01/13 01/11/22 nitroglycerin 0.4 mg sublingual 0.4 mg SUBLINGUAL PRN PRN #0 05/16/13 01/11/22 tablet (Nitrostat) amlodipine 10 mg tablet (Norvasc) 10 mg PO DAILY 12/14/21 01/11/22 fluoxetine 40 mg capsule (Prozac) 40 mg PO DAILY 12/14/21 01/11/22 hydralazine 50 mg tablet 50 mg PO BID 12/14/21 01/11/22 warfarin 4 mg tablet 4 mg PO 3XW 12/14/21 01/11/22 hydrocodone 10 mg-acetaminophen 1 tab PO Q6H PRN 12/15/21 01/11/22 325 mg tablet insulin human U-100 NPH-regulr 25 unit SUBCUT DAILY 12/15/21 01/11/22 70-30 mix 100 unit/mL subcutaneous susp (Novolin 70/30 U-100 Insulin) warfarin 4 mg tablet 8 mg PO 4XW 01/02/22 01/11/22 Previous Rx's Medication Instructions Recorded metoprolol succinate 50 mg 50 mg PO BID #60 tab 12/15/21 tablet,extended release 24 hr lorazepam 0.5 mg tablet (Ativan) 0.5 mg PO BEDTIME PRN #10 tab 01/04/22 bumetanide 1 mg tablet 0.5 mg PO DAILY #30 tab 01/13/22 oxybutynin chloride 5 mg tablet 5 mg PO BID #30 tab 01/13/22 Allergies Allergy/AdvReac Type Severity Reaction Status Date / Time Penicillins [PENICILLINS] AdvReac Mild Difficulty Verified 01/11/22 20:46 Breathing Review of Systems Review of Systems ROS Unobtainable: All systems reviewed & are unremarkable except as noted in HPI and below Patient History Medical History Acute exacerbation of CHF (congestive heart failure) Atrial fibrillation with rapid ventricular response Chronic GERD Congestive heart failure Diabetes mellitus type 2 Ischemic stroke Seizure UTI (urinary tract infection) Ventricular tachycardia (paroxysmal) Social History (System 01/11/22 @ 08:16 by Inga Rush) household members: spouse Smoking Status: Current some day smoker alcohol intake: former Smoking Status: Current some day smoker Substance Use Type: does not use Exam Narrative Exam Narrative: GEN: Elderly female, alert and oriented x 3, patient appears to be in mild distress. Mild jaundice. HEENT: Atraumatic, pupils are equal round reactive to light, extraocular movements are intact, nares are clear, no conjunctival pallor. Throat is clear without any exudates, erythema, tonsillar enlargement or uvular deviation HEART: Regular rate and rhythm without murmur, clicks, rubs. Pulses are equal in extremities. LUNGS:Lungs decrease auscultation bilaterally, no wheezes, rales, crackles, chest moves symmetrically, patient has intermittent tachypnea but not persistent. She speaks in full sentences. ABD:bowel sounds normal, soft, non-tender, no guarding, rebound, rigidity, no masses noted, no hepatosplenomegaly :No CVA tenderness MSCL: Non-tender, patient has atrophy and contraction of the right upper extremity and right lower extremity. She does have some excoriation over the right lower extremity. Patient has normal upper extremity and lower extremity. NEURO:CN 2-12 intact, sensation normal Initial Vital Signs Initial Vital Signs: Vital Signs Temperature 97.9 F 01/10/22 22:31 Pulse Rate 104 H 01/10/22 22:31 Respiratory Rate 24 01/10/22 22:31 Blood Pressure 144/102 H 01/10/22 22:31 Pulse Oximetry 96 01/10/22 22:31 Course Orders Ordered: Discontinued Medications Amlodipine Besylate (Amlodipine 5 Mg Tablet) 10 mg PO DAILY [facility] Last Admin: 01/13/22 08:18 Dose: 10 mg Documented by: Admin: 01/12/22 09:16 Dose: 10 mg Documented by: Admin: 01/11/22 08:25 Dose: 10 mg Documented by: CHRISTINA Bumetanide (Bumetanide 1 Mg Tablet) 0.5 mg PO DAILY [facility] Last Admin: 01/13/22 10:42 Dose: 0.5 mg Documented by: HILARY Dextrose (Dextrose 50 % In Water 25 Gm/50 Ml Syringe) 25 gm IV PRN PRN PRN Reason: Hypoglycemia Fluoxetine HCl (Fluoxetine 20 Mg Capsule) 40 mg PO DAILY [facility] Last Admin: 01/13/22 08:16 Dose: 40 mg Documented by: Admin: 01/12/22 09:15 Dose: 40 mg Documented by: Admin: 01/11/22 08:25 Dose: 40 mg Documented by: CHRISTINA Furosemide (Furosemide 40 Mg/4 Ml Vial) 40 mg IV NOW ONE Stop: 01/10/22 23:50 Last Admin: 01/10/22 23:55 Dose: 40 mg Documented by: VIRGEN Furosemide (Furosemide 20 Mg Tablet) 20 mg PO DAILY [facility] Last Admin: 01/12/22 09:16 Dose: 20 mg Documented by: HILARY Furosemide (Furosemide 20 Mg/2 Ml Vial) 20 mg IV NOW ONE Stop: 01/12/22 13:09 Last Admin: 01/12/22 14:12 Dose: 20 mg Documented by: HILARY Furosemide (Furosemide 20 Mg/2 Ml Vial) 10 mg IV NOW ONE Stop: 01/12/22 18:00 Last Admin: 01/12/22 18:11 Dose: 10 mg Documented by: HILARY Heparin Sodium (Porcine) (Heparin 5,000 Unit/Ml Vial) 5,000 unit SUBCUT BID [facility] Last Admin: 01/11/22 04:29 Dose: Not Given Documented by: RAJNI Hydromorphone HCl (Hydromorphone 0.5 Mg Inj) 1 mg IV NOW ONE Stop: 01/11/22 23:14 Last Admin: 01/11/22 23:28 Dose: 1 mg Documented by: RAJNI Insulin Glargine (Insulin Glargine 100 Unit/Ml 3ml Pen) 25 unit SUBCUT 0800 [facility] Last Admin: 01/12/22 09:14 Dose: Not Given Documented by: Admin: 01/11/22 08:26 Dose: 25 unit Documented by: CHRISTINA Sadlerigned by: SUNITA Insulin Human Lispro (Insulin Lispro 100 Unit/Ml 3ml Vial) 0 unit SUBCUT ACHS [facility]; Protocol Last Admin: 01/13/22 12:21 Dose: 1 unit Documented by: HILARY Cosigned by: MARY Admin: 01/13/22 08:19 Dose: 1 unit Documented by: HILARY Cosigned by: MARY Admin: 01/12/22 20:24 Dose: 2 unit Documented by: CHANTAL Cosigned by: YESI Admin: 01/12/22 17:04 Dose: 1 unit Documented by: HILARY Cosigned by: MARY Admin: 01/12/22 12:55 Dose: 1 unit Documented by: HILARY Cosjennifer by: MARY Admin: 01/12/22 09:13 Dose: Not Given Documented by: Admin: 01/11/22 20:48 Dose: Not Given Documented by: Admin: 01/11/22 17:29 Dose: 1 unit Documented by: CHRISTINA Cosigned by: LOBITO Admin: 01/11/22 12:56 Dose: Not Given Documented by: Admin: 01/11/22 07:54 Dose: Not Given Documented by: CHRISTINA Lamotrigine (Lamotrigine 25 Mg Chew Tablet) 50 mg PO DAILY [facility] Lamotrigine (Lamotrigine 100 Mg Tablet) 50 mg PO DAILY [facility] Last Admin: 01/13/22 08:16 Dose: 50 mg Documented by: Admin: 01/12/22 09:18 Dose: 50 mg Documented by: Admin: 01/11/22 08:25 Dose: 50 mg Documented by: CHRISTINA Lisinopril (Lisinopril 20 Mg Tablet) 20 mg PO DAILY [facility] Last Admin: 01/11/22 08:26 Dose: 20 mg Documented by: CHRISTINA Lisinopril (Lisinopril 20 Mg Tablet) 40 mg PO DAILY [facility] Last Admin: 01/13/22 08:22 Dose: 40 mg Documented by: Admin: 01/12/22 09:17 Dose: 40 mg Documented by: HILARY Lorazepam (Lorazepam 0.5 Mg Tablet) 0.5 mg PO BEDTIME PRN PRN Reason: Sleep Last Admin: 01/12/22 23:11 Dose: 0.5 mg Documented by: CHANTAL Metoprolol Succinate (Metoprolol Er 50 Mg Tablet) 50 mg PO BID [facility] Last Admin: 01/13/22 10:41 Dose: 50 mg Documented by: Admin: 01/12/22 20:24 Dose: 50 mg Documented by: Admin: 01/12/22 09:16 Dose: 50 mg Documented by: Admin: 01/11/22 23:27 Dose: 50 mg Documented by: RAJNI Naloxone HCl (Naloxone 0.4 Mg/Ml Vial) 0.2 mg IV Q2MIN PRN PRN Reason: Opiate Reversal Ondansetron HCl (Ondansetron 4 Mg/2 Ml Inj) 4 mg IV Q6HR PRN PRN Reason: Nausea And Vomiting Oxybutynin (Oxybutynin 5 Mg Tablet) 5 mg PO BID [facility] Last Admin: 01/13/22 08:19 Dose: 5 mg Documented by: Admin: 01/12/22 20:24 Dose: 5 mg Documented by: Admin: 01/12/22 09:18 Dose: 5 mg Documented by: Admin: 01/11/22 20:47 Dose: 5 mg Documented by: Admin: 01/11/22 08:25 Dose: 5 mg Documented by: CHRISTINA Oxycodone HCl (Oxycodone Ir 5 Mg Tablet) 5 mg PO NOW ONE Stop: 01/10/22 23:50 Last Admin: 01/10/22 23:54 Dose: 5 mg Documented by: VIRGEN Oxycodone HCl (Oxycodone Ir 5 Mg Tablet) 5 mg PO Q4HR PRN PRN Reason: Pain, Moderate (4-6) Last Admin: 01/11/22 20:47 Dose: 5 mg Documented by: Admin: 01/11/22 10:48 Dose: 5 mg Documented by: Admin: 01/11/22 05:03 Dose: 5 mg Documented by: RAJNI Oxycodone HCl (Oxycodone Ir 5 Mg Tablet) 5 mg PO Q3HR PRN PRN Reason: Pain, Severe (7-10) Last Admin: 01/13/22 14:53 Dose: 5 mg Documented by: Admin: 01/13/22 07:39 Dose: 5 mg Documented by: Admin: 01/13/22 03:32 Dose: 5 mg Documented by: Admin: 01/12/22 16:56 Dose: 5 mg Documented by: Admin: 01/12/22 12:57 Dose: 5 mg Documented by: HILARY Potassium Chloride (Potassium Chloride 20 Meq Tab) 40 meq PO Q6H [facility] Stop: 01/11/22 18:01 Last Admin: 01/11/22 23:40 Dose: Not Given Documented by: RAJNI Potassium Chloride (Potassium Chloride 20 Meq/15 Ml Udc) 40 meq PO Q6H KAYLAN Stop: 01/11/22 21:16 Last Admin: 01/11/22 23:40 Dose: Not Given Documented by: RAJNI Potassium Chloride (Potassium Chloride 20 Meq/15 Ml Udc) 40 meq PO Q6H KAYLAN Stop: 01/11/22 23:16 Last Admin: 01/11/22 23:32 Dose: 40 meq Documented by: Admin: 01/11/22 17:31 Dose: 40 meq Documented by: CHRISITNA Potassium Chloride (Potassium Chloride 20 Meq/15 Ml Udc) 40 meq PO NOW ONE Stop: 01/12/22 11:08 Last Admin: 01/12/22 12:53 Dose: 40 meq Documented by: HILARY Warfarin Sodium (Warfarin 1 Mg Tablet) 3 mg PO DAILY@1700 [facility] Last Admin: 01/11/22 17:31 Dose: 3 mg Documented by: CHRISTINA Warfarin Sodium (Warfarin 1 Mg Tablet) 5 mg PO DAILY@1700 [facility] Warfarin Sodium (Warfarin 5 Mg Tablet) 5 mg PO DAILY@1700 [facility] Warfarin Sodium (Warfarin 5 Mg Tablet) 7.5 mg PO NOW ONE Stop: 01/12/22 17:31 Last Admin: 01/12/22 17:38 Dose: 7.5 mg Documented by: HILARY Consultations Consultation #1: Dr. Pandey, general surgery will be happy to consult. Please put on list. Consultation #2: MARCELINO wellington, hospitalist. Accepts for admission. Vital Signs Vital signs: Vital Signs - 8 hr 01/10/22 22:31 01/10/22 23:07 01/10/22 23:08 Temperature 97.9 F Pulse Rate 104 H 53 L 95 H Respiratory Rate 24 Blood Pressure 144/102 H 146/103 H Pulse Oximetry 96 83 L 94 01/10/22 23:30 01/10/22 23:59 01/11/22 00:00 Temperature Pulse Rate 108 H 111 H 101 H Respiratory Rate 25 H 24 Blood Pressure 151/112 H 135/82 Pulse Oximetry 95 96 96 01/11/22 00:30 Temperature Pulse Rate 107 H Respiratory Rate Blood Pressure 146/101 H Pulse Oximetry MDM - Nausea/Vomiting/Diarrhea Lab Data Result diagrams: 01/13/22 04:30 01/13/22 04:30 Labs: Lab Results 01/10/22 01/10/22 01/10/22 Range/Units 22:30 22:35 22:35 WBC 8.3 (4.5-11.0) X10^3/uL RBC 4.89 (4.0-5.2) X10^6/uL Hgb 12.8 (12.0-16.0) g/dL Hct 39.7 (36-46) % MCV 81.1 (80-100) fL MCH 26.2 (26-34) PG MCHC 32.3 (30-36) % RDW 17.8 H (11.6-14.8) % Plt Count 272 (150-400) X10^3/uL Neut % (Auto) 70.6 (50-75) % Lymph % (Auto) 18.4 L (25-40) % Summers % (Auto) 9.5 (3-14) % Eos % (Auto) 0.7 L (2-4) % Baso % (Auto) 0.8 (0-2) % Neut # (Auto) 5800 (0772-9656) /uL Lymph # (Auto) 1500 (0484-4533) /uL Summers # (Auto) 800 (0-900) /uL Eos # (Auto) 100 (0-450) /uL Baso # (Auto) 100 (0-100) /uL PT (10.1-12.7) SECONDS INR (0.9-1.3) APTT (26.4-36.2) SECONDS Sodium 136 L (137-145) mmol/L Potassium 3.8 (3.4-5.1) mmol/L Chloride 101 (98-107) mmol/L Carbon Dioxide 29 (22-32) mmol/L BUN 29 H (7-17) mg/dL Creatinine 1.17 H (0.52-1.04) mg/dL Estimated GFR 45.2 L (>60) mL/min BUN/Creatinine Ratio 24.8 H (6-22) Glucose 189 H (80-110) mg/dL Hemoglobin A1c (4.0-6.0) % Calcium 8.9 (8.4-10.2) mg/dL Total Bilirubin 2.1 H (0.2-1.3) mg/dL AST 46 H (14-36) IU/L ALT 39 H (<35) IU/L Alkaline Phosphatase 132 H (38-126) U/L Total Creatine Kinase (30-135) U/L CK-MB (CK-2) CK-MB (CK-2) Rel Index Troponin I (0.01-0.034) ng/mL NT-Pro-B Natriuret Pep (<125) pg/mL Total Protein 7.2 (6.3-8.2) g/dL Albumin 4.0 (3.5-5.0) g/dL Globulin 3.2 (1.7-4.1) g/dL Albumin/Globulin Ratio 1.3 (1.0-2.8) Lipase 16 L (23-300) U/L SARS-CoV-2 (PCR) Negative (Negative) 01/10/22 01/10/22 01/10/22 Range/Units 22:35 22:35 22:35 WBC (4.5-11.0) X10^3/uL RBC (4.0-5.2) X10^6/uL Hgb (12.0-16.0) g/dL Hct (36-46) % MCV (80-100) fL MCH (26-34) PG MCHC (30-36) % RDW (11.6-14.8) % Plt Count (150-400) X10^3/uL Neut % (Auto) (50-75) % Lymph % (Auto) (25-40) % Summers % (Auto) (3-14) % Eos % (Auto) (2-4) % Baso % (Auto) (0-2) % Neut # (Auto) (3516-1992) /uL Lymph # (Auto) (8714-0465) /uL Summers # (Auto) (0-900) /uL Eos # (Auto) (0-450) /uL Baso # (Auto) (0-100) /uL PT 14.8 H (10.1-12.7) SECONDS INR 1.3 (0.9-1.3) APTT 30 (26.4-36.2) SECONDS Sodium (137-145) mmol/L Potassium (3.4-5.1) mmol/L Chloride (98-107) mmol/L Carbon Dioxide (22-32) mmol/L BUN (7-17) mg/dL Creatinine (0.52-1.04) mg/dL Estimated GFR (>60) mL/min BUN/Creatinine Ratio (6-22) Glucose (80-110) mg/dL Hemoglobin A1c (4.0-6.0) % Calcium (8.4-10.2) mg/dL Total Bilirubin (0.2-1.3) mg/dL AST (14-36) IU/L ALT (<35) IU/L Alkaline Phosphatase (38-126) U/L Total Creatine Kinase 86 (30-135) U/L CK-MB (CK-2) TNP CK-MB (CK-2) Rel Index TNP Troponin I 0.037 H (0.01-0.034) ng/mL NT-Pro-B Natriuret Pep 49016 H (<125) pg/mL Total Protein (6.3-8.2) g/dL Albumin (3.5-5.0) g/dL Globulin (1.7-4.1) g/dL Albumin/Globulin Ratio (1.0-2.8) Lipase (23-300) U/L SARS-CoV-2 (PCR) (Negative) 01/10/22 01/11/22 Range/Units 22:35 00:35 WBC (4.5-11.0) X10^3/uL RBC (4.0-5.2) X10^6/uL Hgb (12.0-16.0) g/dL Hct (36-46) % MCV (80-100) fL MCH (26-34) PG MCHC (30-36) % RDW (11.6-14.8) % Plt Count (150-400) X10^3/uL Neut % (Auto) (50-75) % Lymph % (Auto) (25-40) % Summers % (Auto) (3-14) % Eos % (Auto) (2-4) % Baso % (Auto) (0-2) % Neut # (Auto) (3216-3256) /uL Lymph # (Auto) (4911-8831) /uL Summers # (Auto) (0-900) /uL Eos # (Auto) (0-450) /uL Baso # (Auto) (0-100) /uL PT (10.1-12.7) SECONDS INR (0.9-1.3) APTT (26.4-36.2) SECONDS Sodium (137-145) mmol/L Potassium (3.4-5.1) mmol/L Chloride (98-107) mmol/L Carbon Dioxide (22-32) mmol/L BUN (7-17) mg/dL Creatinine (0.52-1.04) mg/dL Estimated GFR (>60) mL/min BUN/Creatinine Ratio (6-22) Glucose (80-110) mg/dL Hemoglobin A1c 8.1 H (4.0-6.0) % Calcium (8.4-10.2) mg/dL Total Bilirubin (0.2-1.3) mg/dL AST (14-36) IU/L ALT (<35) IU/L Alkaline Phosphatase (38-126) U/L Total Creatine Kinase (30-135) U/L CK-MB (CK-2) CK-MB (CK-2) Rel Index Troponin I 0.035 H (0.01-0.034) ng/mL NT-Pro-B Natriuret Pep (<125) pg/mL Total Protein (6.3-8.2) g/dL Albumin (3.5-5.0) g/dL Globulin (1.7-4.1) g/dL Albumin/Globulin Ratio (1.0-2.8) Lipase (23-300) U/L SARS-CoV-2 (PCR) (Negative) Imaging Data Chest x-ray: Radiologist's Impression: [address] [address] XRay Report Signed Patient: Lilliana Garcia MR#: [id number] : 1945 Acct:[id number] Age/Sex: 76 / F Date of Service: 01/10/22 Loc: ED Accession Number: [id number] ?? Procedure: XR chest 1V Ordering Provider: Antonette Trotter D.O. PROCEDURE:? XR CHEST 1V ? INDICATIONS:? chest pain ? TECHNIQUE:? One view of the chest was acquired.? ? COMPARISON:? [facility], CR, XR CHEST 1V, 01/02/2022, 2:56.? [facility], CR, XR CHEST 1V, 01/04/2022, 10:31. ? FINDINGS:? There is rotation. ? Surgical changes and devices:? None.? ? Lungs and pleura:? Bilateral interstitial infiltrates consistent with mild pulmonary edema.? No pleural effusions or pneumothorax.? ? Mediastinum:? Mediastinal contours appear patent, most likely secondary to rot ation.? Heart size is moderately increased.? ? Bones and chest wall:? No suspicious bony lesions.? Overlying soft tissues appear unremarkable.? ? IMPRESSION:? ? 1. Moderate cardiomegaly and mild congestive heart failure. 2. Widening of mediastinum is likely caused by rotation.? If clinically indicat ed, a repeat standard 2-view chest x-ray would be helpful.? ? ? Dictated by: Lexii Harrison M.D. on 01/10/2022 at 23:33 ? ? Approved by: Lexii Harrison M.D. on 01/10/2022 at 23:35? ECG Data Attestation: I personally reviewed and interpreted this ECG as follows: Prior ECG tracings: available for review Interpretation: AFib with rapid ventricular response with a left axis deviation. Right bundle branch block. Rate of 105 QRS of 136 and a QTC of 481. Patient has ST depression in 2 3 and lateral leads with similar appearing EKG from 01/04/2022 with no acute changes today. MDM Narrative Medical decision making narrative: This is a 76-year-old female comes in with complaint of abdominal pain, shortness of breath as well as nausea vomiting and diarrhea. She has changes to her LFTs which are rising since her most recent visit. Possible gallstones but her gallbladder was not visualized on recent CT was only visualized on ultrasound was repeated today. She has some complaint of shortness of breath, no clear troponin changes but some CHF indicated by labs, exam and imaging. Patient case was discussed with Dr. Pandey who is happy to consult and the hospitalist who accepts for admission Discharge Plan Departure Patient Disposition: Admitted As Inpatient Clinical Impression: Acute exacerbation of CHF (congestive heart failure), Nausea vomiting and diarrhea, Hepatitis Admit Date/Time: 01/11/22 01:47 Admit Provider: Shu Wellington
[2022-01-10 23:30] VITALS: BP 151/112; PULSE 108; O2SAT 95
[2022-01-10 23:33] LABS: INR 1.3 (0.9-1.3); Prothrombin Time 14.8 SECONDS (10.1-12.7)
[2022-01-10 23:36] LABS: PTT Partial Thromboplastin Tim 30 SECONDS (26.4-36.2)
[2022-01-10 23:46] LABS: NT-proBNP (BNP-Adult 18+) 19800 pg/mL (<125)
[2022-01-10] MEDS: OXYCODONE IR 5 MG TABLET PO (23:54)
[2022-01-10] MEDS: FUROSEMIDE 40 MG/4 ML VIAL IV (23:55)
[2022-01-10 23:59] VITALS: PULSE 111; RESP 25; O2SAT 96
[2022-01-11] VITALS (20 sets, daily range): BP systolic 125–165; BP diastolic 68–103; PULSE 84–120; RESP 18–25; TEMP 36.1–36.7; O2SAT 92–97; BMI 28.5
--- NOTE | 2022-01-11 00:15 | DI.US.S_ITS ---
PROCEDURE: US ABDOMEN LIMITED INDICATIONS: RUQ PAIN TECHNIQUE: Real-time scanning was performed of the abdominal and retroperitoneal organs, with image documentation. COMPARISON: [facility], CT, CT CHEST ABD PEL W CON, 01/04/2022, 14:08. [facility], US, US ABDOMEN LIMITED, 01/04/2022, 12:08. FINDINGS: Liver: Liver is mildly enlarged and demonstrates diffusely increased echotexture. Gallbladder: There are gallstones. No gallbladder wall thickening, pericholecystic fluid or sonographic Veras's sign. Biliary ducts: Intrahepatic bile ducts are non-dilated. Extrahepatic bile duct caliber measures 4.4 mm. Normal is 6-7 mm or less in diameter, or 10 mm or less post-cholecystectomy. Pancreas: Visualized portions of the pancreas are sonographically normal. Miscellaneous: No free abdominal fluid. IMPRESSION: 1. Cholelithiasis. No ultrasound findings to suggest acute cholecystitis. 2. Diffusely increased hepatic echotexture. This finding is most likely secondary to hepatic fatty infiltration although other hepatocellular disease may have a similar appearance. Recommend clinical correlation. Dictated by: Lexii Harrison M.D. on 01/11/2022 at 0:56 Approved by: Lexii Harrison M.D. on 01/11/2022 at 1:00
[2022-01-11 01:07] LABS: Troponin I 0.035 ng/mL (0.01-0.034)
--- NOTE | 2022-01-11 02:58 | P.HP_ITS ---
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 She was supposed to be receiving a pulse oximeter sometime this week. She states that she was clammy, had chills, cough with a white foam like phlegm in the large amount of nonbloody diarrhea. She had been at a point where she had use a commode at home. She denies vomiting food content but did describe what she was vomiting was white and foamy looking. She found herself choking on her secretions. She had coffee in the morning and apparently the nausea and vomiting worsened throughout the day. She had a fever yesterday but does not know what her temperature was and chills. In the emergency department they did give her oxycodone for abdominal and chest pain. She stated the chest pain was several days ago and is no longer present. Chest x-ray ordered in the emergency department indicated moderate cardiomegaly and mild congestive heart failure and mediastinal widening however thought to be caused by rotation. CT of the abdomen indicated cholelithiasis and increased hepatic echotexture ?most likely secondary to hepatic fatty infiltration through other hepatocellular disease?. She is afebrile, blood pressure 146/101, heart rate 107, respiratory rate 24, oxygen saturation 96% on room air she weighs 93 kg. Is within normal limits. She is subtherapeutic on her INR which is 1.3. Sodium 136, creatinine 1.17, BUN 29, with the EGFR 45.2, glucose is 189, A1c is pending, total bilirubin is 2.1 which is not normal for her, AST 46, ALT 39, alk-phos 132, which troponin was initially elevated at 0.41 and is now down trending to 0.035, [place] [address], lipase is 16, COVID-19 PCR is negative. Patient History Medical History CHF exacerbation COPD (chronic obstructive pulmonary disease) Depression Diabetes type 2 with atherosclerosis of arteries of extremities Essential (primary) hypertension Hemiparesis affecting right side as late effect of cerebrovascular accident History of CVA (cerebrovascular accident) Seizure disorder Family & Social History Safety & Behavioral: Feels Safe in Current Yes Environment Tobacco & Substance use: Smoking Status Current some day smoker, 1 ppd Substance Use Type does not use Meds Home Medications and Allergies Allergies Allergy/AdvReac Type Severity Reaction Status Date / Time Penicillins Allergy Unknown Verified 01/11/22 00:01 Review of Systems Review of Systems ROS: Yes All systems reviewed with the patient and are negative except as otherwise documented Exam Vital Signs (past 8 hours): - 01/10/22 22:31 01/10/22 23:07 01/10/22 23:08 Temperature 97.9 F Pulse Rate 104 H 53 L 95 H Respiratory Rate 24 Blood Pressure 144/102 H 146/103 H Pulse Oximetry 96 83 L 94 01/10/22 23:30 01/10/22 23:59 01/11/22 00:00 Temperature Pulse Rate 108 H 111 H 101 H Respiratory Rate 25 H 24 Blood Pressure 151/112 H 135/82 Pulse Oximetry 95 96 96 01/11/22 00:30 Temperature Pulse Rate 107 H Respiratory Rate Blood Pressure 146/101 H Pulse Oximetry Oxygen Delivery Method Room Air Narrative Exam Narrative: Gen: Alert, oriented, obese 76 y.o. female, lethargic HEENT: normocephalic, atraumatic, conjunctiva clear, sclera non-icteric, oral mucosa pink and moist Neck: supple, full ROM, no JVD, trachea is midline Resp: Lungs CTA, non-labored breathing CV: irregularly irregular, no murmur or rubs Abd: soft, non-tender, normoactive BTs Skin: no lesions or rashes, dry and intact Neuro: Alert and oriented X 4 w/no focal deficits. Speech clear and coherent. Extremities: moves all 4 extremities, is not ambulatory, negative Jose?s sign Psyche: normal mood and affect. Objective Labs Result Diagrams: 01/10/22 22:35 01/10/22 22:35 Labs: Laboratory Results - last 24 hr 01/10/22 01/10/22 01/10/22 22:30 22:35 22:35 WBC 8.3 RBC 4.89 Hgb 12.8 Hct 39.7 MCV 81.1 MCH 26.2 MCHC 32.3 RDW 17.8 H Plt Count 272 Neut % (Auto) 70.6 Lymph % (Auto) 18.4 L [place] % (Auto) 9.5 Eos % (Auto) 0.7 L Baso % (Auto) 0.8 Neut # (Auto) 5800 Lymph # (Auto) 1500 [place] # (Auto) 800 Eos # (Auto) 100 Baso # (Auto) 100 PT INR APTT Sodium 136 L Potassium 3.8 Chloride 101 Carbon Dioxide 29 BUN 29 H Creatinine 1.17 H Estimated GFR 45.2 L BUN/Creatinine Ratio 24.8 H Glucose 189 H Calcium 8.9 Total Bilirubin 2.1 H AST 46 H ALT 39 H Alkaline Phosphatase 132 H Total Creatine Kinase CK-MB (CK-2) CK-MB (CK-2) Rel Index Troponin I NT-Pro-B Natriuret Pep Total Protein 7.2 Albumin 4.0 Globulin 3.2 Albumin/Globulin Ratio 1.3 Lipase 16 L SARS-CoV-2 (PCR) Negative 01/10/22 01/10/22 01/10/22 22:35 22:35 22:35 WBC RBC Hgb Hct MCV MCH MCHC RDW Plt Count Neut % (Auto) Lymph % (Auto) [place] % (Auto) Eos % (Auto) Baso % (Auto) Neut # (Auto) Lymph # (Auto) [place] # (Auto) Eos # (Auto) Baso # (Auto) PT 14.8 H INR 1.3 APTT 30 Sodium Potassium Chloride Carbon Dioxide BUN Creatinine Estimated GFR BUN/Creatinine Ratio Glucose Calcium Total Bilirubin AST ALT Alkaline Phosphatase Total Creatine Kinase 86 CK-MB (CK-2) TNP CK-MB (CK-2) Rel Index TNP Troponin I 0.037 H NT-Pro-B Natriuret Pep 56479 H Total Protein Albumin Globulin Albumin/Globulin Ratio Lipase SARS-CoV-2 (PCR) 01/11/22 00:35 WBC RBC Hgb Hct MCV MCH MCHC RDW Plt Count Neut % (Auto) Lymph % (Auto) [place] % (Auto) Eos % (Auto) Baso % (Auto) Neut # (Auto) Lymph # (Auto) [place] # (Auto) Eos # (Auto) Baso # (Auto) PT INR APTT Sodium Potassium Chloride Carbon Dioxide BUN Creatinine Estimated GFR BUN/Creatinine Ratio Glucose Calcium Total Bilirubin AST ALT Alkaline Phosphatase Total Creatine Kinase CK-MB (CK-2) CK-MB (CK-2) Rel Index Troponin I 0.035 H NT-Pro-B Natriuret Pep Total Protein Albumin Globulin Albumin/Globulin Ratio Lipase SARS-CoV-2 (PCR) Assessment & Plan Assessment & Plan narrative: Lilliana Garcia is a 76-year-old female with diabetes type 2, seizure disorder, COPD, depression, hypertension, urinary incontinence, CHF, will be admitted for CHF exacerbation and further workup of elevated transaminases and bilirubin. 1. Elevated transaminases an bilirubin, acute, present on admission * I suspect this might be due to some of the medications that she may be taking including lamotrigine, possibly fluoxetine * Hepatic viral panel has been sent out and is pending 2. CHF exacerbation with the proBNP of almost 20,000 * CHADs Vasc2 score of 7 * Patient's description of coughing with copious amounts of phlegm would indicate that she may have cor pulmonale * Troponins were mildly elevated on admission but have trended down and will no longer be trended. * Last echo done in November indicated she has an ejection fraction of 30-40% and was due to undergo stress testing and a possible cardiac catheterization however is not known whether she has followed this up. * She was given Lasix 40 mg in the ED and should likely receive another dose in the morning * She will continue home doses of lisinopril 20 mg and metoprolol succinate 50 mg daily 3. Atrial fibrillation anticoagulated on warfarin currently subtherapeutic * She states that she takes warfarin 2 mg Saturday and Saturday and 1 mg on Saturday and Saturday * Will start her on warfarin 3 mg with daily PT INR monitoring 4. Diabetes type 2, chronic, present on admission * Hemoglobin A1c is pending * Continue glargine 25 units daily and medium dose correctional scale a.c. and HS 5. Seizure disorder, chronic * Patient states she has a mild seizure every month that she believes was caused by her stroke * Continue home dose of lamotrigine 50 mg p.o. daily 6. Essential hypertension, chronic * Continue amlodipine 10 mg p.o. daily as well as her NATHAN-inhibitor and beta- talia 7. Depression, chronic * Continue home dose of fluoxetine 40 mg p.o. daily 8. Urinary incontinence, chronic * Continue oxybutynin 5 mg p.o. b.i.d. VTE Prophylaxis: Wells risk score 3 [X] Patient is currently anticoagulated on warfarin. Patient is admitted to the inpatient service due to the severity of disease, risks of further disease progression and this stay is expected to exceed 2 midnights. FEN: IV fluids: saline lock, diet: carb control, 1200 cc fluid restriction, labs: CBC, C/BMP, liver enzymes, Mag, PT/INR Consultants None Dispo: Unknown at this time Code status: DNR/DNI as discussed with the patient who identifies SHEREEN in her chart indicated she was to be on comfort measures. [X] I have utilized all available immediate resources to obtain, update, or review of the patient's current medications COVID-19 COVID-19 status: Negative Result date/Date tested (Pos, Neg/Pending): 01/11/22 Scores CHADS-VASc Congestive heart failure: yes Hypertension: yes Age 75 years or older: no Diabetes mellitus: yes Stroke, TIA, or TE: yes Vascular disease: yes Age 65 to 74 years: no Sex category (female): Female CHADS-VASc Score: 7 Wells' Criteria for PE Clinical signs and symptoms of DVT: No PE is #1 Dx or equally likely: No Heart rate > 100: Yes Immobilization at least 3 days or surg in previous 4 weeks: Yes History of PE or DVT: No Hemoptysis: No Malignancy w/Treatment within 6 months or palliative: No Wells' PE Score total: 3.0 Quality VTE Deep Vein Thrombosis/Pulmonary Embolism Present on Admission: No MIPS - Admit I confirm the patient?s Advance Care Plan is present, Code status is documented, Surrogate decision maker is in patient?s record [If Yes, STOP here]: Yes MIPS - DC The patient has current or prior documentation of left ventricular ejection fraction (LVEF) less than 40%, or moderate or severely depressed left ventricular systolic function.: Yes A. The patient was prescribed or already taking an Angiotensin-Converting Enzyme (NATHAN) Inhibitor, or Angiotensin Receptor Talia (ARB).: Yes B. The patient was prescribed or already taking a beta-talia. [If Yes to Both A & B, STOP here]: Yes
[2022-01-11 03:26] LABS: Hemoglobin A1C% w Est Avg Glu 8.1 % (4.0-6.0)
[2022-01-11] MEDS: OXYCODONE IR 5 MG TABLET PO ×3 (05:03→20:47)
[2022-01-11 06:42] LABS: Add Manual Diff / Slide Review NO; Basophils Absolute Auto 0 /uL (0-100); Basophils Percent Auto 0.4 % (0-2); Eosinophils Absolute Auto 100 /uL (0-450); Eosinophils Percent Auto 1.2 % (2-4); Hematocrit 38.2 % (36-46); Hemoglobin 12.5 g/dL (12.0-16.0); Lymphocytes Absolute Auto 1500 /uL (1100-4500); Lymphocytes Percent Auto 22.3 % (25-40); Mean Corpuscular HGB Conc 32.8 % (30-36); Mean Corpuscular Hemoglobin 26.6 PG (26-34); Mean Corpuscular Volume 81.1 fL (80-100); Monocytes Absolute Auto 500 /uL (0-900); Monocytes Percent Auto 7.9 % (3-14); Neutrophils Absolute Auto 4700 /uL (1500-7000); Neutrophils Percent Auto 68.2 % (50-75); Platelet Count 244 X10^3/uL (150-400); Red Blood Cell Count 4.71 X10^6/uL (4.0-5.2); Red Cell Distribution Width 17.2 % (11.6-14.8); White Blood Cell Count 6.9 X10^3/uL (4.5-11.0)
[2022-01-11 06:44] LABS: INR 1.4 (0.9-1.3); Prothrombin Time 15.9 SECONDS (10.1-12.7)
[2022-01-11 06:51] LABS: Alanine Aminotransferase 46 IU/L (<35); Albumin 3.7 g/dL (3.5-5.0); Albumin Globulin Ratio 1.2 (1.0-2.8); Alkaline Phosphatase 123 U/L (38-126); Aspartate Aminotransferase 53 IU/L (14-36); BUN Creatinine Ratio 24.3 (6-22); Bilirubin Total 2.2 mg/dL (0.2-1.3); Bilirubin Unconjugated 2.2 mg/dL (0.0-1.1); Blood Urea Nitrogen 27 mg/dL (7-17); Calcium 8.5 mg/dL (8.4-10.2); Carbon Dioxide 32 mmol/L (22-32); Chloride 102 mmol/L (98-107); Globulin 3.1 g/dL (1.7-4.1); Glucose 110 mg/dL (80-110); HEMOLYSIS < 15 (0-50); Magnesium 1.7 mg/dL (1.6-2.3); Potassium 3.3 mmol/L (3.4-5.1); Sodium 138 mmol/L (137-145); Total Protein 6.8 g/dL (6.3-8.2)
--- NOTE | 2022-01-11 07:33 | PC.NURSE ---
admit from ED. dx: CHF exacerbation and gallstones. arrived via stretcher, 3pa transfer to bed. patient is a/o, voices needs. hx of CVA in 2005 (?) and has slight slurred speech. unclear if this is due to CVA or loss of teeth. has a few natural teeth left. patient reports she has worked very hard at learning how to improve her speech, writing and communication over the last 15 years. states she is w/c bound at home and immobile due to right side hemiplegia due to this stroke. takes coumadin. uses smita lift for transfers. uses the [employer] system for going out of the house. current smoker. will ask for nicotine patch. c/o pain to abd, PRN oxycodone ordered by [facility] upon request by this RN. NPO since midnight.
[2022-01-11] MEDS: FLUoxetine 20 MG CAPSULE 40 MG PO (08:25)
[2022-01-11] MEDS: lamoTRIgine 100 MG TABLET 50 MG PO (08:25)
[2022-01-11] MEDS: AMLODIPINE 5 MG TABLET 10 MG PO (08:25)
[2022-01-11] MEDS: OXYBUTYNIN 5 MG TABLET PO ×2 (08:25→20:47)
[2022-01-11] MEDS: INSULIN GLARGINE 100 UNIT/ML 3ML PEN 25 UNIT SUBCUT (08:26)
[2022-01-11] MEDS: lisinopriL 20 MG TABLET PO (08:26)
[2022-01-11 09:15] LABS: HIV 1 & 2 Ab/Ag 4th Gen Combo NEGATIVE (NEGATIVE)
--- NOTE | 2022-01-11 14:48 | CM.DPNOTE ---
[facility] was following this patient. Please contact them when patient is being discharged. Lilliana Corbett CM Assist.
--- NOTE | 2022-01-11 16:11 | CM.DANOTE ---
Discharge Assessment Note: Patient is 76yo F admitted for CHF exacerbation and gallstones and SOB. Patient is assigned to hospitalist team. Patient resides at home with her spouse. Patient will need BLS or cabulance transport home. Patient is full assist, uses smita lift at home, is wheelchair bound. Patient is currently open with [facility] for RN/Bath Aide. Patient also private pays a caregiver (family friend) to come in and help with housekeeping 1x weekly. Patient stated her DPOA is her son but she stated it's outdated and I want to redo it. Patient's is trying to get aid and attendance through [place] but hasn't been able to complete all the paperwork to get this in place yet. stated they do not qualify for Medicaid because they make too much money from their [facility]dc. Patient reported she has been to [facility] twice and currently open with [facility]. Patient stated OT/PT would not benefit her because of her wc bound status. INS: Medicare, for Life Plan: discharge home with [facility] restarting vs SNF. AUTO INSPECTOR will continue to follow throughout course of clinical admission for discharge planning needs as they arise. Aiden FITZGERALDSW Discharge Planning/Care Management Advanced directive, confirm from FAMILY Start: 01/11/22 03:59 Freq: Q24H Status: Active Protocol: Document 01/11/22 10:08 ELÍAS (Rec: 01/11/22 10:12 ELÍAS [id number]) Advance Directive, confirm on record Time 10:09 Person contacted patient Copy received No CM Discharge Assessment Start: 01/11/22 15:54 Freq: Status: Active Protocol: Document 01/11/22 15:54 RED (Rec: 01/11/22 16:10 RED [id number]) Discharge Planning Assessment Assigned Speech Clinician Aiden FITZGERALDSW DPOA/Assigned Designee Name pt stated her son but it is old and no longer in place Contact Information n/a Advance Directives? Yes Advance Directives on File No History Provided By Patient,Medical Record Has Patient been admitted in last 30 No days? Prior Living Arrangements House Household Members spouse Type of transporation used prior to Relies on Others admit Comment cabulance Independent with ADL's No Is patient alert and oriented? Yes Needs Assistance With Bathing,Grooming,Meal Prep, Toileting,Home Chores / Shopping Caregiver for Another No Community Services used prior to Home Health Aid,Home Health admission: Nurse DME Already Rented / Owned Wheelchair,Other Comment 2 wheelchairs, smita lift, and electric scooter Patient/Family Preference Home with Home Health Barriers to Discharge No Comment According to patient, her helps her at home, and she has other children that live nearby, her daughter, Taryn , who is a NUTRITION DIRECTOR. Discharge Plan Home Community Services Home Health Aid,Home Health Nurse,Transportation Transportation Arrangement cabulance vs BLS Referrals Initiated Home Health Additional Comment pt already open to [facility], restart orders will be needed If patient plan is home with home health No : Has signed face to face form been completed? Whiteboard Updated in Patient Room with Yes name and ext. # of Speech Clinician Review Status In Process Next Review Type Continued Stay Review
[2022-01-11] MEDS: INSULIN LISPRO 100 UNIT/ML 3ML VIAL SUBCUT (17:29)
[2022-01-11] MEDS: WARFARIN 1 MG TABLET 3 MG PO (17:31)
[2022-01-11] MEDS: POTASSIUM CHLORIDE 20 MEQ/15 ML UDC 40 MEQ PO ×2 (17:31→23:32)
--- NOTE | 2022-01-11 19:28 | PC.NURSE ---
A&Ox4. VSS. Pain in bilateral knees and right lower leg. Given PRN oxycodone which provided relief as well as ice. 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 Incontinent bowel and bladder. Brief on. When given PO tablets of potassium she had an episode of emesis due to taste and inability to swallow. Order was changed to liquid solution which patient tolerated well. Good appetite. Bed low, call light within reach.
[2022-01-11] MEDS: METOPROLOL ER 50 MG TABLET PO (23:27)
[2022-01-11] MEDS: HYDROMORPHONE 0.5 MG INJ 1 MG IV (23:28)
[2022-01-12] VITALS (17 sets, daily range): BP systolic 113–149; BP diastolic 62–100; PULSE 83–116; RESP 17–22; TEMP 35.9–36.6; O2SAT 93–98
--- NOTE | 2022-01-12 03:19 | PC.NURSE ---
a/o, voices needs. 1-2 PA ADL assist and bed mobility. notified Stormy Heck at HS for patient c/o increased pain to R knee and lower ABD. new order received for oxycodone 5m changed to Q 3 hours. Dilauded 1mg IVP x 1. this was given w/ great effect. patient sleeping and appears to be comfortable. HR was elevated prior to pain issue, call from ICU: 130's w/ movement and changing attends. Stormy Heck notified, by ICU and this RN. new order received for metoprolol PO. this was given at late HS. per tele monitor, patients HR was hanging out at 100, getting as far as 140-160 BPM. 0400: HR is 80-100 bpm. call light w/in reach.
[2022-01-12 06:25] LABS: HBsAg Screen Negative (Negative); Hepatitis A Antibody IgM Negative (Negative); Hepatitis B Core Antibody IgM Negative (Negative); Hepatitis C Antibody <0.1 s/co ratio (0.0-0.9)
[2022-01-12 06:58] LABS: Add Manual Diff / Slide Review NO; Basophils Absolute Auto 100 /uL (0-100); Basophils Percent Auto 0.8 % (0-2); Eosinophils Absolute Auto 200 /uL (0-450); Eosinophils Percent Auto 2.7 % (2-4); Hematocrit 36.3 % (36-46); Hemoglobin 11.8 g/dL (12.0-16.0); Lymphocytes Absolute Auto 1400 /uL (1100-4500); Lymphocytes Percent Auto 23.1 % (25-40); Mean Corpuscular HGB Conc 32.5 % (30-36); Mean Corpuscular Hemoglobin 26.4 PG (26-34); Mean Corpuscular Volume 81.3 fL (80-100); Monocytes Absolute Auto 500 /uL (0-900); Monocytes Percent Auto 8.8 % (3-14); Neutrophils Absolute Auto 3900 /uL (1500-7000); Neutrophils Percent Auto 64.6 % (50-75); Platelet Count 239 X10^3/uL (150-400); Red Blood Cell Count 4.46 X10^6/uL (4.0-5.2); Red Cell Distribution Width 17.4 % (11.6-14.8)
[2022-01-12 07:04] LABS: INR 1.3 (0.9-1.3); Prothrombin Time 15.3 SECONDS (10.1-12.7)
[2022-01-12 07:09] LABS: Alanine Aminotransferase 59 IU/L (<35); Albumin 3.3 g/dL (3.5-5.0); Albumin Globulin Ratio 1.1 (1.0-2.8); Alkaline Phosphatase 112 U/L (38-126); Aspartate Aminotransferase 48 IU/L (14-36); BUN Creatinine Ratio 26.1 (6-22); Bilirubin Total 1.6 mg/dL (0.2-1.3); Bilirubin Unconjugated 1.7 mg/dL (0.0-1.1); Blood Urea Nitrogen 31 mg/dL (7-17); Calcium 8.1 mg/dL (8.4-10.2); Carbon Dioxide 30 mmol/L (22-32); Chloride 103 mmol/L (98-107); Estimated Glomerular Filt Rate 44.3 mL/min (>60); Globulin 2.9 g/dL (1.7-4.1); Glucose 117 mg/dL (80-110); HEMOLYSIS < 15 (0-50); Magnesium 1.8 mg/dL (1.6-2.3); Potassium 3.4 mmol/L (3.4-5.1); Sodium 138 mmol/L (137-145); Total Protein 6.2 g/dL (6.3-8.2)
[2022-01-12] MEDS: FLUoxetine 20 MG CAPSULE 40 MG PO (09:15)
[2022-01-12] MEDS: FUROSEMIDE 20 MG TABLET PO (09:16)
[2022-01-12] MEDS: METOPROLOL ER 50 MG TABLET PO ×2 (09:16→20:24)
[2022-01-12] MEDS: AMLODIPINE 5 MG TABLET 10 MG PO (09:16)
[2022-01-12] MEDS: lisinopriL 20 MG TABLET 40 MG PO (09:17)
[2022-01-12] MEDS: lamoTRIgine 100 MG TABLET 50 MG PO (09:18)
[2022-01-12] MEDS: OXYBUTYNIN 5 MG TABLET PO ×2 (09:18→20:24)
--- NOTE | 2022-01-12 11:32 | PC.NURSE ---
Day shift: Dr Newton informed of 8 beats of vtach at this time.
--- NOTE | 2022-01-12 11:54 | CM.DPC ---
DCP Cont: Met with patient and spouse, Dav. Introduced self and role. During team rounds is was mentioned, patient may possibly discharge home tomorrow. Confirmed with patient and spouse that she is a hoier lift at home, and that they have all of the equipment readily available. They also have [facility] as well, for nursing and bath aide. He and patient are prepared for home tomorrow if patient is deemed medically stable. Discussed mode of transportation, and spouse is aware she will need ambulance transport, they just bill Medicare. He mentioned, she has been to the ER about 5 times, and they have been sending her home with [facility]. P: DCP to continue to follow. Plan is for patient to go home when stable with the resumption of [facility]. Mendy Shaffer RN/[employer]mercial [employer] Underwriter
--- NOTE | 2022-01-12 12:01 | DI.RAD.S_ITS ---
PROCEDURE: XR CHEST 1V INDICATIONS: Short of breath TECHNIQUE: One view of the chest was acquired. COMPARISON: [facility], CT, CT CHEST ABD PEL W CON, 01/04/2022, 14:08. [facility], CR, XR CHEST 1V, 12/22/2021, 8:59. [facility], CR, XR CHEST 1V, 01/02/2022, 2:56. [facility], CR, XR CHEST 1V, 01/04/2022, 10:31. [facility], CR, XR CHEST 1V, 01/10/2022, 22:40. FINDINGS: Surgical changes and devices: None. Lungs and pleura: Low lung volumes are noted. This causes a crowded appearance to the lung markings and limits evaluation. Mild interstitial prominence can be seen. No large pneumothorax or large pleural effusions are seen. Mediastinum: The cardiac contours are moderately enlarged. The aorta demonstrates calcification and tortuosity. Bones and chest wall: No suspicious bony lesions. Age-appropriate bony degenerative changes are seen. Overlying soft tissues appear unremarkable. IMPRESSION: Cardiomegaly and interstitial prominence. Please consider CHF. Dictated by: Db Kinsey M.D. on 01/12/2022 at 11:45 Approved by: Db Kinsey M.D. on 01/12/2022 at 11:46
[2022-01-12] MEDS: POTASSIUM CHLORIDE 20 MEQ/15 ML UDC 40 MEQ PO (12:53)
[2022-01-12] MEDS: INSULIN LISPRO 100 UNIT/ML 3ML VIAL SUBCUT ×3 (12:55→20:24)
[2022-01-12] MEDS: OXYCODONE IR 5 MG TABLET PO ×2 (12:57→16:56)
[2022-01-12] MEDS: FUROSEMIDE 20 MG/2 ML VIAL IV (14:12)
--- NOTE | 2022-01-12 14:18 | P.PN_ITS ---
Subjective Subjective Interval history: The patient reports one episode of n/v yesterday. She says that's less than before. She denies bloody emesis. Denies diarrhea. Denies any changes with her breathing. She reports good PO intake, with adherence to fluid restriction. Exam Vital Signs (past 8 hours): - 01/12/22 08:00 01/12/22 08:39 01/12/22 09:16 Temperature 96.8 F L Pulse Rate 94 H 94 H Respiratory Rate 18 Blood Pressure 149/93 H 149/93 H Pulse Oximetry 96 97 01/12/22 09:17 01/12/22 10:31 01/12/22 12:00 Temperature 97.1 F L Pulse Rate 94 H 116 H 107 H Respiratory Rate 22 Blood Pressure 149/93 H 113/79 138/100 H Pulse Oximetry 97 Oxygen Delivery Method Room Air Oxygen Flow Rate 0 Const Other: Sitting up in bed comfortably upon my entering the room, in no apparent acute distress Eyes Other: No scleral icterus appreciated Neck Other: No carotid bruits noted Resp Other: Poor air exchange with faint crackles appreicated to mid-lower lungs Cardio Other: Slightly tachycardic rate, with regular rhythm, with normal S1 and S2 heart sounds, and S3 heart sound appreciated, with no significant peripheral edema GI Other: Soft, non-distended, non-tender, bowel sounds present Skin Other: No grossly abnormal skin lesions appreciated Neuro Other: Right-sided hemiparesis appreciated, with right hand and foot contractures Extrem Other: Palpable and steady radial and dorsalis pedis pulses bilaterally Objective Labs Result Diagrams: 01/12/22 06:39 01/12/22 06:39 Labs: Laboratory Results - last 24 hr 01/11/22 01/12/22 01/12/22 Unknown 06:39 06:39 WBC 6.0 RBC 4.46 Hgb 11.8 L Hct 36.3 MCV 81.3 MCH 26.4 MCHC 32.5 RDW 17.4 H Plt Count 239 Neut % (Auto) 64.6 Lymph % (Auto) 23.1 L [place] % (Auto) 8.8 Eos % (Auto) 2.7 Baso % (Auto) 0.8 Neut # (Auto) 3900 Lymph # (Auto) 1400 [place] # (Auto) 500 Eos # (Auto) 200 Baso # (Auto) 100 PT 15.3 H INR 1.3 Sodium Potassium Chloride Carbon Dioxide BUN Creatinine Estimated GFR BUN/Creatinine Ratio Glucose Calcium Magnesium Total Bilirubin Conjugated Bilirubin Unconjugated Bilirubin AST ALT Alkaline Phosphatase Total Protein Albumin Globulin Albumin/Globulin Ratio Hepatitis A IgM Ab Negative Hep Bs Antigen Negative Hep B Core IgM Ab Negative Hepatitis C Antibody <0.1 Hep C Ab Signal/Cutoff Comment 01/12/22 06:39 WBC RBC Hgb Hct MCV MCH MCHC RDW Plt Count Neut % (Auto) Lymph % (Auto) [place] % (Auto) Eos % (Auto) Baso % (Auto) Neut # (Auto) Lymph # (Auto) [place] # (Auto) Eos # (Auto) Baso # (Auto) PT INR Sodium 138 Potassium 3.4 Chloride 103 Carbon Dioxide 30 BUN 31 H Creatinine 1.19 H Estimated GFR 44.3 L BUN/Creatinine Ratio 26.1 H Glucose 117 H Calcium 8.1 L Magnesium 1.8 Total Bilirubin 1.6 H Conjugated Bilirubin 0.0 Unconjugated Bilirubin 1.7 H AST 48 H ALT 59 H Alkaline Phosphatase 112 Total Protein 6.2 L Albumin 3.3 L Globulin 2.9 Albumin/Globulin Ratio 1.1 Hepatitis A IgM Ab Hep Bs Antigen Hep B Core IgM Ab Hepatitis C Antibody Hep C Ab Signal/Cutoff [facility] Medical History Acute exacerbation of CHF (congestive heart failure) Atrial fibrillation with rapid ventricular response Chronic GERD Congestive heart failure Diabetes mellitus type 2 Ischemic stroke Seizure UTI (urinary tract infection) Ventricular tachycardia (paroxysmal) Social History (System 01/11/22 @ 08:16 by Inga Rush) household members: spouse Smoking Status: Current some day smoker alcohol intake: former Assessment & Plan Assessment & Plan narrative: Lilliana Garcia is a 76-year-old female with diabetes type 2, seizure disorder, COPD, depression, hypertension, urinary incontinence, CHF, will be admitted for CHF exacerbation and further workup of elevated transaminases and bilirubin. 1. Elevated transaminases, and bilirubin, acute, present on admission * Likely multifactorial, but most likely to be from hepatic congestion due to HFrEF 2. HFrEF (EF 30%), with a BNP of almost 20,000 * Last echocardiogram (November 2021) showed EF 30-35% with global hypokinesis, likely dilated cardiomyopathy? * Likely not diuresing well on PO Lasix outpatient due to intestinal edema, and so will start PO Bumex 0.5 mg bid * She will continue home doses of lisinopril 20 mg and metoprolol succinate 50 mg daily 3. Atrial fibrillation anticoagulated on warfarin, currently subtherapeutic * She states that she takes warfarin 2 mg Saturday and Saturday and 1 mg o n Saturday and Saturday * Will start her on warfarin 3 mg with daily PT/INR monitoring 4. Diabetes type 2, chronic, present on admission * Hemoglobin A1c is pending * Continue glargine 25 units daily and medium dose correctional scale a.c. and HS 5. Seizure disorder, chronic * Patient states she has a mild seizure every month that she believes was caused by her stroke * Continue home dose of lamotrigine 50 mg p.o. daily 6. Essential hypertension, chronic * Continue amlodipine 10 mg p.o. daily as well as her NATHAN-inhibitor and beta- danial 7. Depression, chronic * Continue home dose of fluoxetine 40 mg p.o. daily 8. Urinary incontinence, chronic * Continue oxybutynin 5 mg p.o. b.i.d. VTE Prophylaxis: Warfarin, as above Code status: DNR/DNI I have utilized all available immediate resources to obtain, update, or review of the patient's current medications Time Spent With Patient Critical Care time: I spent a total of [] minutes of critical care time on this patient's care today; this time is exclusive of procedural time. Quality VTE Deep Vein Thrombosis/Pulmonary Embolism Present on Admission: No MIPS - Admit I confirm the patient?s Advance Care Plan is present, Code status is documented, Surrogate decision maker is in patient?s record [If Yes, STOP here]: Yes
[2022-01-12] MEDS: WARFARIN 5 MG TABLET 7.5 MG PO (17:38)
[2022-01-12] MEDS: FUROSEMIDE 20 MG/2 ML VIAL 10 MG IV (18:11)
[2022-01-12] MEDS: LORazepam 0.5 MG TABLET PO (23:11)
[2022-01-13] VITALS (8 sets, daily range): BP systolic 122–148; BP diastolic 68–103; PULSE 77–111; RESP 20–22; TEMP 35.8–36.2; O2SAT 96–98
[2022-01-13] MEDS: OXYCODONE IR 5 MG TABLET PO ×3 (03:32→14:53)
[2022-01-13 05:27] LABS: Add Manual Diff / Slide Review NO; Basophils Absolute Auto 100 /uL (0-100); Basophils Percent Auto 0.9 % (0-2); Eosinophils Absolute Auto 100 /uL (0-450); Eosinophils Percent Auto 1.5 % (2-4); Hematocrit 40.2 % (36-46); Hemoglobin 12.9 g/dL (12.0-16.0); Lymphocytes Absolute Auto 1500 /uL (1100-4500); Lymphocytes Percent Auto 20.7 % (25-40); Mean Corpuscular HGB Conc 32.2 % (30-36); Mean Corpuscular Hemoglobin 26.3 PG (26-34); Mean Corpuscular Volume 81.7 fL (80-100); Monocytes Absolute Auto 800 /uL (0-900); Monocytes Percent Auto 10.5 % (3-14); Neutrophils Absolute Auto 4800 /uL (1500-7000); Neutrophils Percent Auto 66.4 % (50-75); Platelet Count 266 X10^3/uL (150-400); Red Blood Cell Count 4.92 X10^6/uL (4.0-5.2); Red Cell Distribution Width 17.6 % (11.6-14.8); White Blood Cell Count 7.3 X10^3/uL (4.5-11.0)
[2022-01-13 05:31] LABS: INR 1.3 (0.9-1.3); Prothrombin Time 15.3 SECONDS (10.1-12.7)
[2022-01-13 05:36] LABS: Alanine Aminotransferase 64 IU/L (<35); Albumin 3.5 g/dL (3.5-5.0); Albumin Globulin Ratio 1.2 (1.0-2.8); Alkaline Phosphatase 127 U/L (38-126); Aspartate Aminotransferase 52 IU/L (14-36); Bilirubin Total 1.5 mg/dL (0.2-1.3); Bilirubin Unconjugated 1.4 mg/dL (0.0-1.1); Blood Urea Nitrogen 34 mg/dL (7-17); Calcium 8.4 mg/dL (8.4-10.2); Carbon Dioxide 30 mmol/L (22-32); Chloride 100 mmol/L (98-107); Estimated Glomerular Filt Rate 41.5 mL/min (>60); Glucose 145 mg/dL (80-110); HEMOLYSIS < 15 (0-50); Magnesium 1.8 mg/dL (1.6-2.3); Potassium 4.3 mmol/L (3.4-5.1); Sodium 135 mmol/L (137-145); Total Protein 6.5 g/dL (6.3-8.2)
[2022-01-13] MEDS: lamoTRIgine 100 MG TABLET 50 MG PO (08:16)
[2022-01-13] MEDS: FLUoxetine 20 MG CAPSULE 40 MG PO (08:16)
[2022-01-13] MEDS: AMLODIPINE 5 MG TABLET 10 MG PO (08:18)
[2022-01-13] MEDS: INSULIN LISPRO 100 UNIT/ML 3ML VIAL SUBCUT ×2 (08:19→12:21)
[2022-01-13] MEDS: OXYBUTYNIN 5 MG TABLET PO (08:19)
[2022-01-13] MEDS: lisinopriL 20 MG TABLET 40 MG PO (08:22)
[2022-01-13] MEDS: METOPROLOL ER 50 MG TABLET PO (10:41)
[2022-01-13] MEDS: BUMETANIDE 1 MG TABLET 0.5 MG PO (10:42)
--- NOTE | 2022-01-13 13:12 | CM.DPC ---
DCP Cont: Patient is to be discharging home today via BLS, as patient is a full hoier lift upon her baseline. She is happy to be going home. Updated patient's , Dav, and is aware that she does need BLS transport, and potential added expense. Let him know that this mission planner will call and set up transportation and will call him with an updated. Also let him know that this mission planner will contact [facility] to resume care. Called [facility] and set up transportation metal pickling equipment operator at 1530. Updated white board at main nursing station, and nurse, Louise. Completed BLS form with face sheet and POLST form attached. Awaiting to get hospitalist to sign. Updated patient on metal pickling equipment operator time, and gave her copy of her IMM. Called [facility] and spoke to Kasey. Let her know that patient is discharging today. Asked her to confirm current disciplines, and she indicated, RN, bath aide, P.T and O.T did not have any discharge notes, so they would be included. This mission planner added CAND[employer]DER [employer] for resources, for has been having some difficulties with working with [facility] for [facility] for the patient. P: Patient is discharging home today and will resume [facility], RN, P.T, O.T, bath aide and CANDLE MOLDER HAND added. Will have hospitalist sign BLS form. Mendy Shaffer RN/Stain Sprayer
--- NOTE | 2022-01-13 16:06 | PC.NURSE ---
Day shift-Pt left floor via BLS at 1600. Pt has all belongings. Went over D/C info w/PT. Pt VERBALIZES understanding of new meds and CHF. Pt given bed bath and brief changed just prior to departure. Pt given 5mg Oxycodone for pain at 1500 Pt verbalized controlled pain at 3/10 upon departure.
--- NOTE | 2022-01-13 17:31 | PM.DS.1 ---
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 She was supposed to be receiving a pulse oximeter sometime this week.? She states that she was clammy, had chills, cough with a white foam like phlegm in the large amount of nonbloody diarrhea.? She had been at a point where she had use a commode at home.? She denies vomiting food content but did describe what she was vomiting was white and foamy looking.? She found herself choking on her secretions.? She had coffee in the morning and apparently the nausea and vomiting worsened throughout the day.? She had a fever yesterday but does not know what her temperature was and chills.? In the emergency department they did give her oxycodone for abdominal and chest pain.? She stated the chest pain was several days ago and is no longer present. Chest x-ray ordered in the emergency department indicated moderate cardiomegaly and mild congestive heart failure and mediastinal widening however thought to be caused by rotation.? CT of the abdomen indicated cholelithiasis and increased hepatic echotexture ?most likely secondary to hepatic fatty infiltration through other hepatocellular disease?.? She is afebrile, blood pressure 146/101, heart rate 107, respiratory rate 24, oxygen saturation 96% on room air she weighs 93 kg.? Is within normal limits.? She is subtherapeutic on her INR which is 1.3.? Sodium 136, creatinine 1.17, BUN 29, with the EGFR 45.2, glucose is 189, A1c is pending, total bilirubin is 2.1 which is not normal for her, AST 46, ALT 39, alk-phos 132, which troponin was initially elevated at 0.41 and is now down trending to 0.035, [place] [address], lipase is 16, COVID-19 PCR is negative. Discharge Providers Provider Date of admission: 01/11/22 01:47 Discharge Date: 01/13/22 Consults: 01/12/22 16:13 Consult to Dietitian, Adult Routine Comment: Reason For Exam: Per [place] scale protocol 01/13/22 13:02 Consult to Home Health Routine Comment: Reason For Exam: Resume Home Health RN, P.T, O.T, LAND RECLAMATION SPECIALIST, bath aide Discharge provider: Patrick Carias MD Summary Hospital Course Discharge Diagnosis: 1. Acute systolic CHF exacerbation 2. Congestive hepatopathy 3. Afib on coumadin 4. Type 2 Diabetes 5. Seizure disorder 6. Hypertension 7. Depression 8. Urinary incontinence Hospital Course: Ms. Garcia was admitted with nausea, vomiting, and shortness of breath. She was recently admitted with a CHF exacerbation. She has NOT been taking lasix consistently. She has good urine output when she does. She possibly had edema, that was preventing good absorption of lasix, and was switched to bumex to improve this. She had good improvement in her symptoms in the hospital. She was noted to have elevated LFTs, this improved with diuresis. She has negative serologies, and no acute findings, but chronic changes on her abdominal ultrasound. This is likely secondary to congestive hepatopathy. On day of discharge she was tolerating a diet, she has no respiratory symptoms and she was eager to go home. She should follow up with her PCP within one week to make sure she is doing well on this dose of bumex. Due to mild MARIIA she was recommended to hold her lisinopril and spironolactone a few more days before restarting. Discharge time 35 minutes Exam Vital Signs (past 8 hours): - 01/13/22 10:15 01/13/22 10:41 01/13/22 12:01 Pulse Rate 102 H 77 Blood Pressure 148/103 H 140/70 Pulse Oximetry 98 Oxygen Delivery Method Room Air Oxygen Flow Rate 0 Narrative Exam Narrative: GEN: no acute distress PULM: clear bilaterally CV: regular rhythm, with no significant peripheral edema ABD: Soft, non-distended, non-tender, bowel sounds present NEURO: Right-sided hemiparesis appreciated, with right hand and foot contractures Objective Labs Result Diagrams: 01/13/22 04:30 01/13/22 04:30 Labs: Laboratory Results - last 24 hr 01/13/22 01/13/22 01/13/22 04:30 04:30 04:30 WBC 7.3 RBC 4.92 Hgb 12.9 Hct 40.2 MCV 81.7 MCH 26.3 MCHC 32.2 RDW 17.6 H Plt Count 266 Neut % (Auto) 66.4 Lymph % (Auto) 20.7 L [place] % (Auto) 10.5 Eos % (Auto) 1.5 L Baso % (Auto) 0.9 Neut # (Auto) 4800 Lymph # (Auto) 1500 [place] # (Auto) 800 Eos # (Auto) 100 Baso # (Auto) 100 PT 15.3 H INR 1.3 Sodium 135 L Potassium 4.3 Chloride 100 Carbon Dioxide 30 BUN 34 H Creatinine 1.26 H Estimated GFR 41.5 L BUN/Creatinine Ratio 27.0 H Glucose 145 H Calcium 8.4 Magnesium 1.8 Total Bilirubin 1.5 H Conjugated Bilirubin 0.0 Unconjugated Bilirubin 1.4 H AST 52 H ALT 64 H Alkaline Phosphatase 127 H Total Protein 6.5 Albumin 3.5 Globulin 3.0 Albumin/Globulin Ratio 1.2 PFSH Medical History Acute exacerbation of CHF (congestive heart failure) Atrial fibrillation with rapid ventricular response Chronic GERD Congestive heart failure Diabetes mellitus type 2 Ischemic stroke Seizure UTI (urinary tract infection) Ventricular tachycardia (paroxysmal) Social History (System 01/11/22 @ 08:16 by Inga Rush) household members: spouse Smoking Status: Current some day smoker alcohol intake: former Discharge Plan Discharge Plan Patient Disposition: Home Provider Discharge Comment: Ms. Garcia came in to the hospital with nausea, vomiting. She had congestive heart failure exacerbation and her medication was switched to bumex, instead of lasix. She should take this every day. She is given oxybutinin for urinary incontinence. She should hold on taking her spironolactone and lisinopril for three days and then restart them. Discharge orders & Medications Prescriptions: New bumetanide 1 mg Tablet 0.5 mg PO DAILY Qty: 30 0RF oxybutynin chloride 5 mg Tablet 5 mg PO BID Qty: 30 0RF Continued lamotrigine [Lamictal] 25 MG tablet 25 mg PO DAILY Qty: 0 0RF nitroglycerin [Nitrostat] 0.4 MG tablet, sublingual 0.4 mg Sublingual PRN PRN (Reason: Chest Pain) Qty: 0 0RF fluoxetine [Prozac] 40 mg capsule 40 mg PO DAILY 0RF warfarin 4 mg tablet 4 mg PO 3XW 0RF Rx Instructions: M,W,F amlodipine [Norvasc] 10 mg tablet 10 mg PO DAILY 0RF hydralazine 50 mg tablet 50 mg PO BID 0RF hydrocodone-acetaminophen 10-325 mg Tablet 1 tab PO Q6H PRN (Reason: Pain (Scale Score 4-6)) 0RF Novolin 70/30 U-100 Insulin 100 unit/mL (70-30) suspension 25 unit SUBCUT DAILY 0RF Rx Instructions: Daily at 0900 metoprolol succinate 50 mg Tablet Extended Release 24 Hr 50 mg PO BID Qty: 60 0RF warfarin 4 mg tablet 8 mg PO 4XW 0RF Rx Instructions: T, TH, S, S lorazepam [Ativan] 0.5 mg tablet 0.5 mg PO BEDTIME PRN (Reason: anxiety) Qty: 10 0RF Discontinued lisinopril 5 MG tablet 20 mg PO DAILY Qty: 0 0RF spironolactone 100 mg Tablet 100 mg PO DAILY 0RF furosemide 20 mg tablet 20 mg PO DAILY Qty: 30 1RF Visit Report/Discharge Packet Instructions: DI for Heart Failure Quality VTE Deep Vein Thrombosis/Pulmonary Embolism Present on Admission: No MIPS - DC The patient has current or prior documentation of left ventricular ejection fraction (LVEF) less than 40%, or moderate or severely depressed left ventricular systolic function.: Yes A. The patient was prescribed or already taking an Angiotensin-Converting Enzyme (NATHAN) Inhibitor, or Angiotensin Receptor Talia (ARB).: Yes B. The patient was prescribed or already taking a beta-talia. [If Yes to Both A & B, STOP here]: Yes
== END 2022-01-13 16:10 | disposition home health service (06) | DRG 291 ==
LOC: ED 01-11 01:43 → AC 01-11 01:48
PROVIDERS: Admitting Provider Nurse Practitioner Family; Emergency Provider Emergency Medicine; Referring Provider Emergency Medicine; Visit Provider Nurse Practitioner Family
DX: I11.0 Hypertensive heart disease with heart failure (principal); I50.23 Acute on chronic systolic (congestive) heart failure; I69.351 Hemiplegia and hemiparesis following cerebral infarction affecting right dominant side; R74.01 Elevation of levels of liver transaminase levels; I48.91 Unspecified atrial fibrillation; E80.6 Other disorders of bilirubin metabolism; F17.200 Nicotine dependence, unspecified, uncomplicated; E11.9 Type 2 diabetes mellitus without complications; R11.2 Nausea with vomiting, unspecified; G40.909 Epilepsy, unspecified, not intractable, without status epilepticus; F32.A Depression, unspecified; R32 Unspecified urinary incontinence; Z66 Do not resuscitate; Z20.822 Contact with and (suspected) exposure to COVID-19; Z79.01 Long term (current) use of anticoagulants; Z79.4 Long term (current) use of insulin
CPT/HCPCS: 36415; 71045; 76705; 80048; 80053; 80074; 80076; 82550; 82553; 82962; 83036; 83690; 83735; 83880; 84484; 85025; 85610; 85730; 87389; 87635; 93005; 93010; 94760; 96374; 99285; C9803; J1170; J1815; J1940

== ENCOUNTER 2022-01-16 10:28 | Inpatient (IN) | payer MEDICARE, OTHER, SELFPAY ==
[2022-01-11 02:10] VITALS: BMI 28.5
[2022-01-16] VITALS (34 sets, daily range): BP systolic 141–247; BP diastolic 81–133; PULSE 71–145; RESP 19–37; TEMP 36.6–37.7; O2SAT 89–99; BMI 28.9; BMI 26.4
--- NOTE | 2022-01-16 10:40 | DI.CT.S_ITS ---
PROCEDURE: CT ANGIO HEAD AND NECK INDICATIONS: Slurred speech TECHNIQUE: Noncontrast images were performed earlier in the day and not repeated. After the administration of intravenous contrast, 1 mm thick sections acquired from the aortic arch through the [place] of [place]. Post-contrast 4.5 mm thick sections then re-acquired from the foramen magnum to the vertex. 3-dimensional odfwntm-tjbaukhfb-bhzmbxehmq (MIP) and/or volume rendering reformats were acquired of the central intracranial vasculature and neck separately. COMPARISON: [facility], CT, HEAD WITHOUT CONTRAST, 07/22/2012, 18:34. [facility], CT, HEAD WITHOUT CONTRAST, 12/01/2008, 18:15. [facility], CT, CT HEAD/BRAIN WO CON, 01/16/2022, 10:44. [facility], MR, MR SEIZURE BRAIN W&WO CON, 01/04/2017, 21:06. [facility], CT, BRAIN W/O CONTRAST, 12/26/2012, 4:48. FINDINGS: Image quality: Limited by bolus timing with venous contamination BRAIN: CSF spaces: Ventricles are normal in size and shape. Basal cisterns are patent. No extra-axial fluid collections. Brain: Note is made of age-appropriate brain parenchymal volume loss and chronic small vessel ischemic changes. A broad area of encephalomalacia is again seen involving the left posterior MCA territory. No midline shift. No intracranial bleeds or masses. Rodriguez-white matter interface appears intact. Skull and face: Calvarium and facial bones appear intact, without suspicious lesions. Orbits appear normal. Sinuses: Sinuses and mastoids are clear. HEAD CT ANGIOGRAPHY: Anterior circulation: Intracranial internal carotid arteries are normal in size and flow. The flow within the paired anterior cerebral arteries is normal and symmetric. The flow within the middle cerebral arteries is normal and symmetric. The anterior communicating artery is seen. No aneurysms are seen. Posterior circulation: There is poor flow seen within the right V4 segment. The flow within the left V4 segment is within normal limits. There is a normal appearing basilar artery. Flow within the posterior cerebral arteries is normal and symmetric. No aneurysms are seen. NECK CT ANGIOGRAPHY: Carotid system: Incidental note is made of a common origin of the right brachiocephalic artery and the left common carotid artery (bovine type arch). This is considered to be a developmental variant of no clinical consequence. The origins of the common carotid arteries appear patent. The left common carotid artery demonstrates irregularity with relatively prominent soft plaque, without to 40% luminal narrowing. No significant narrowing can be seen involving the right common carotid artery. Both common carotid arteries are relatively highly tortuous. The bifurcation regions demonstrate atherosclerotic irregularity and calcification. There is approximately 80% narrowing involving the right proximal internal carotid artery. There is approximately 30% narrowing seen involving the left proximal internal carotid artery. The more distal internal carotid arteries demonstrate tortuosity, particularly on the left. Posterior circulation: The origin of the right vertebral artery is occluded. Only a scant amount of flow can be within the right vertebral artery, which is restored via collateral circulation. The extracranial left vertebral artery demonstrates a normal origin and normal flow, without a focal stenosis. Soft tissues: Visualized neck soft tissues demonstrate no suspicious abnormalities. Likely scarring versus atelectasis is seen at the right lung apex. At least moderate coronary artery calcification is seen. Bones: No suspicious bony lesions. Visualized cervical spine appears normally aligned. There is at least moderate cervical spine degenerative change. IMPRESSION: Stenosis can be seen involving both proximal internal carotid arteries, approximately 80% on the right and approximately 30% on the left. Broad soft plaque can be seen involving the left common carotid artery, with up to 40% luminal narrowing. 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 Poor flow seen throughout the right vertebral artery. The internal carotid arteries and the common carotid arteries demonstrate tortuosity. There is a remote left MCA territory infarction, as previously demonstrated. Incidental note is made of: At least moderate cervical spine degenerative change Bovine type aortic branching pattern At least moderate coronary artery calcification Likely scarring versus atelectasis at the right lung apex Any quantitative measurements of stenosis were performed using NASCET criteria. Dictated by: Db Kinsey M.D. on 01/16/2022 at 10:09 Approved by: Db Kinsey M.D. on 01/16/2022 at 10:17
--- NOTE | 2022-01-16 10:40 | DI.CT.S_ITS ---
PROCEDURE: CT HEAD/BRAIN WO CON INDICATIONS: Slurred speech TECHNIQUE: Noncontrast 4.5 mm thick angled axial sections acquired from the foramen magnum to the vertex, with coronal and sagittal reformats. For radiation dose reduction, the following was used: automated exposure control, adjustment of mA and/or kV according to patient size. COMPARISON: [facility], CT, CT ANGIO HEAD AND NECK, 01/16/2022, 10:44. [facility], MR, MR SEIZURE BRAIN W&WO CON, 01/04/2017, 21:06. [facility], CT, HEAD WITHOUT CONTRAST, 07/22/2012, 18:34. FINDINGS: Image quality: Excellent. CSF spaces: Basal cisterns are patent. No extra-axial fluid collections. The ventricles are symmetric in size and shape. Brain: Areas of remote infarction are seen, including a relatively broad area of infarction involving the posterior left MCA territory. No intracranial bleeds or masses. There is cerebral volume loss for age, with resultant ventricular and sulcal prominence. There are periventricular and deep white matter chronic small vessel ischemic changes. There is intracranial internal carotid artery atherosclerosis. Skull and face: Calvarium and visualized facial bones appear intact, without suspicious lesions. Sinuses: Visualized sinuses and mastoids are clear. IMPRESSION: Areas of remote infarction, without a malou, acute abnormality seen on this noncontrast head CT. If there is strong clinical suspicion for an acute stroke, please consider a brain MRI for further evaluation, as it is more sensitive (assuming that there is no contraindication to MRI). No acute intracranial hemorrhage is seen. Dictated by: Db Kinsey M.D. on 01/16/2022 at 10:07 Approved by: Db Kinsey M.D. on 01/16/2022 at 10:08
--- NOTE | 2022-01-16 10:45 | DI.RAD.S_ITS ---
PROCEDURE: XR CHEST 1V INDICATIONS: eval for pna TECHNIQUE: One view of the chest was acquired. COMPARISON: [facility], CR, XR CHEST 1V, 01/12/2022, 12:00. FINDINGS: Surgical changes and devices: None. Lungs and pleura: Diffuse interstitial thickening. Thickening of the right minor fissure. No dense consolidations. Mediastinum: Moderately enlarged heart, similar to prior. Stable aortic contour. Mild central vascular prominence. Bones and chest wall: Degenerative changes in both shoulders. IMPRESSION: Cardiomegaly with mild central vascular and diffuse interstitial prominence, chronic. No dense consolidation to suggest focal pneumonia. Dictated by: Sisi Cavanaugh M.D. on 01/16/2022 at 11:25 Approved by: Sisi Cavanaugh M.D. on 01/16/2022 at 11:27
[2022-01-16 11:07] LABS: COVID19 -Nasal RAPID Negative (Negative)
[2022-01-16] MEDS: SODIUM CHLORIDE 0.9% 1,000 ML 125 ML IV (11:34)
--- NOTE | 2022-01-16 11:34 | ED.GENADULT ---
HPI - General Adult General Chief complaint: Urogenital-Female Stated complaint: Neuro slurred speech Time Seen by Provider: 01/16/22 10:28 Source: patient Mode of arrival: EMS Limitations: no limitations History of Present Illness HPI narrative: Patient is a 76-year-old female. Has a history of a CVA in the past with right-sided weakness. Is not ambulatory. Last known normal was last known normal was last evening. Per report this morning the patient was having some word-finding issues. Was initially reported as slurred speech and confusion. Here in the emergency department patient denies chest pain. No abdominal pain. No headache. She does feel like her left side is more weak compared to normal. She does not report any change in her right side. She is somewhat slow to answer questions but knows the location in the year. Related Data Home Medications Medication Instructions Recorded Confirmed lamotrigine 25 mg tablet (Lamictal) 25 mg PO DAILY #0 02/01/13 01/16/22 nitroglycerin 0.4 mg sublingual 0.4 mg SUBLINGUAL PRN PRN #0 05/16/13 01/16/22 tablet (Nitrostat) amlodipine 10 mg tablet (Norvasc) 10 mg PO DAILY 12/14/21 01/16/22 fluoxetine 40 mg capsule (Prozac) 40 mg PO DAILY 12/14/21 01/16/22 hydralazine 50 mg tablet 50 mg PO BID 12/14/21 01/16/22 warfarin 4 mg tablet 4 mg PO 3XW 12/14/21 01/16/22 hydrocodone 10 mg-acetaminophen 1 tab PO Q6H PRN 12/15/21 01/16/22 325 mg tablet insulin human U-100 NPH-regulr 25 unit SUBCUT DAILY 12/15/21 01/16/22 70-30 mix 100 unit/mL subcutaneous susp (Novolin 70/30 U-100 Insulin) warfarin 4 mg tablet 8 mg PO 4XW 01/02/22 01/16/22 Previous Rx's Medication Instructions Recorded metoprolol succinate 50 mg 50 mg PO BID #60 tab 12/15/21 tablet,extended release 24 hr lorazepam 0.5 mg tablet (Ativan) 0.5 mg PO BEDTIME PRN #10 tab 01/04/22 bumetanide 1 mg tablet 0.5 mg PO DAILY #30 tab 01/13/22 oxybutynin chloride 5 mg tablet 5 mg PO BID #30 tab 01/13/22 Allergies Allergy/AdvReac Type Severity Reaction Status Date / Time Penicillins [PENICILLINS] AdvReac Mild Difficulty Verified 01/11/22 20:46 Breathing Review of Systems Constitutional Constitutional: Denies headache(s) Eyes Comments: Patient denies visit changes ENT Ears, Nose, Mouth, and Throat: Denies headache(s) Cardiovascular Comments: Denies chest pain Respiratory Comments: Denies shortness of breath Gastrointestinal Comments: Denies abdominal pain Musculoskeletal Musculoskeletal: Reports system reviewed and no additional complaints, except as documented and Reports as per HPI Integumentary/Breasts Comments: No rashes Neurologic Neurologic: Denies headache(s) Comments: see hpi Hematologic/Lymphatic On Anticoagulants: Yes Patient History Medical History Acute exacerbation of CHF (congestive heart failure) Atrial fibrillation with rapid ventricular response CHF exacerbation Chronic GERD Congestive heart failure COPD (chronic obstructive pulmonary disease) Depression Diabetes mellitus type 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 Essential (primary) hypertension Hemiparesis affecting right side as late effect of cerebrovascular accident History of CVA (cerebrovascular accident) Ischemic stroke Seizure Seizure disorder UTI (urinary tract infection) Ventricular tachycardia (paroxysmal) Social History household members: spouse Smoking Status: Current every day smoker alcohol intake: current Smoking Status: Current every day smoker alcohol intake frequency: holidays/special occasions only Substance Use Type: does not use Exam Initial Vital Signs Initial Vital Signs: Vital Signs Pulse Rate 122 H 01/16/22 10:34 Const General: cooperative and comfortable HENCA Head: normal to inspection and normocephalic Resp Effort & Inspection: normal respiratory effort Auscultation: clear to auscultation bilaterally Cardio Rate: tachycardic Rhythm: abnormal rhythm Skin General: no rashes or lesions noted Neuro Other: Patient has her baseline right sided deficits. She does have 5/5 strength left upper extremity left lower extremity. She does have coordination with her left upper extremity. No facial droop. She is somewhat slow to answer questions but is not slurring her words. Does not seem to have expressive aphasia. Extrem Other: Patient cannot move her right upper right lower extremity. This is not new for her. Patient can move her left upper extremity. There is no gross deformities noted. Psych Appearance: grossly normal and well kempt Scores GCS Stephanie coma scale eye opening: Spontaneous Stephanie coma scale verbal response: Confused [place] coma scale motor response: Obey commands [place] coma scale total score: 14 Course Orders Ordered: ED Orders 01/16/22 10:40 CT angio head and neck Stat CT head/brain wo con Stat 01/16/22 10:45 XR chest 1V Stat 01/16/22 10:49 COVID19 -Nasal swab/Pre-Proc Stat 01/16/22 11:25 Urinalysis and Microscopic Stat 01/16/22 12:01 Urine Culture Stat 01/16/22 12:07 Blood Culture Stat Complete Blood Count AUTO DIFF Stat Comprehensive Metabolic Panel Stat Ethanol (ETOH) Stat Lipase Stat Magnesium Stat NT-proBNP (BNP-Adult 18+) Stat Partial Thromboplastin Time Stat Procalcitonin Stat Prothrombin Time INR Stat Troponin & CK Cardiac Panel Stat 01/16/22 13:10 Lactate (Lactic Acid) Stat Acetaminophen (Acetaminophen 325 Mg Tablet) 650 mg PO Q6HR PRN PRN Reason: Fever/Mild Pain (1-3) Diltiazem HCl 125 mg/ Dextrose 125 mls @ 5 mls/hr IV TITRATE [facility]; Protocol Last Titration: 01/16/22 15:30 Dose: 15 mg/hr, 15 mls/hr Documented by: Titration: 01/16/22 14:45 Dose: 10 mg/hr, 10 mls/hr Documented by: Admin: 01/16/22 13:08 Dose: 5 mg/hr, 5 mls/hr Documented by: MARILOU Ceftriaxone Sodium 1,000 mg/ (Sodium Chloride) 100 mls @ 200 mls/hr IV Q24H [facility] Stop: 01/19/22 11:59 Lamotrigine (Lamotrigine 25 Mg Chew Tablet) 50 mg PO DAILY [facility] Metoprolol Succinate (Metoprolol Er 50 Mg Tablet) 50 mg PO BID [facility] Naloxone HCl (Naloxone 0.4 Mg/Ml Vial) 0.2 mg IV Q2MIN PRN PRN Reason: Opiate Reversal Ondansetron HCl (Ondansetron 4 Mg/2 Ml Inj) 4 mg IV Q8HR PRN PRN Reason: Nausea And Vomiting Warfarin Sodium (Warfarin 5 Mg Tablet) 5 mg PO DAILY@1700 [facility] Last Admin: 01/16/22 18:03 Dose: Not Given Documented by: DOUGLAS Discontinued Medications Diltiazem HCl (Diltiazem 5 Mg/Ml Sdv) 20 mg IV NOW ONE Stop: 01/16/22 11:36 Last Admin: 01/16/22 12:12 Dose: 20 mg Documented by: MARILOU Furosemide (Furosemide 100 Mg/10 Ml Vial) 60 mg IV NOW ONE Stop: 01/16/22 15:29 Last Admin: 01/16/22 16:23 Dose: 60 mg Documented by: DOUGLAS Sodium Chloride (Normal Saline 0.9%) 1,000 mls @ 125 mls/hr IV CONT KAYLAN Stop: 01/16/22 15:27 Last Admin: 01/16/22 11:34 Dose: 125 mls/hr Documented by: MARILOU Ceftriaxone Sodium 1,000 mg/ (Sodium Chloride) 100 mls @ 200 mls/hr IV NOW ONE Stop: 01/16/22 11:36 Last Infusion: 01/16/22 15:00 Dose: 0 mls/hr Documented by: Admin: 01/16/22 12:17 Dose: 200 mls/hr Documented by: MARILOU Metoprolol Succinate (Metoprolol Er 50 Mg Tablet) 50 mg PO NOW ONE Stop: 01/16/22 13:42 Last Admin: 01/16/22 15:01 Dose: Not Given Documented by: DOUGLAS Vital Signs Vital signs: Vital Signs - 8 hr 01/16/22 11:30 01/16/22 12:00 01/16/22 12:12 Pulse Rate 133 H 135 H 137 H Respiratory Rate 24 Blood Pressure 247/124 H 176/115 H 187/122 H Pulse Oximetry 96 96 01/16/22 12:13 01/16/22 12:16 01/16/22 12:30 Pulse Rate 134 H 117 H 109 H Respiratory Rate 20 31 H Blood Pressure 187/122 H 196/124 H 222/121 H Pulse Oximetry 94 94 97 01/16/22 13:00 01/16/22 13:01 01/16/22 13:30 Pulse Rate 115 H 105 H 110 H Respiratory Rate 34 H 27 H 28 H Blood Pressure 169/104 H 185/124 H Pulse Oximetry 93 91 94 01/16/22 13:37 01/16/22 13:45 Pulse Rate 120 H 120 H Respiratory Rate 23 32 H Blood Pressure 179/133 H 217/132 H Pulse Oximetry 96 96 Medical Decision Making Lab Data Lab results reviewed: Yes I reviewed the patient's lab results. Result diagrams: 01/16/22 12:07 01/16/22 12:07 Labs: Lab Results 01/16/22 01/16/22 01/16/22 Range/Units 10:49 11:25 12:07 WBC 8.2 (4.5-11.0) X10^3/uL RBC 4.89 (4.0-5.2) X10^6/uL Hgb 12.7 (12.0-16.0) g/dL Hct 40.4 (36-46) % MCV 82.6 (80-100) fL MCH 25.9 L (26-34) PG MCHC 31.4 (30-36) % RDW 17.7 H (11.6-14.8) % Plt Count 272 (150-400) X10^3/uL Neut % (Auto) 80.3 H (50-75) % Lymph % (Auto) 10.2 L (25-40) % Terry % (Auto) 7.7 (3-14) % Eos % (Auto) 0.8 L (2-4) % Baso % (Auto) 1.0 (0-2) % Neut # (Auto) 6600 (0341-3604) /uL Lymph # (Auto) 800 L (9014-9250) /uL Terry # (Auto) 600 (0-900) /uL Eos # (Auto) 100 (0-450) /uL Baso # (Auto) 100 (0-100) /uL PT (10.1-12.7) SECONDS INR (0.9-1.3) APTT (26.4-36.2) SECONDS Sodium (137-145) mmol/L Potassium (3.4-5.1) mmol/L Chloride (98-107) mmol/L Carbon Dioxide (22-32) mmol/L BUN (7-17) mg/dL Creatinine (0.52-1.04) mg/dL Estimated GFR (>60) mL/min BUN/Creatinine Ratio (6-22) Glucose (80-110) mg/dL Lactate (0.7-2.1) mmol/L Calcium (8.4-10.2) mg/dL Magnesium (1.6-2.3) mg/dL Total Bilirubin (0.2-1.3) mg/dL AST (14-36) IU/L ALT (<35) IU/L Alkaline Phosphatase (38-126) U/L Total Creatine Kinase (30-135) U/L CK-MB (CK-2) CK-MB (CK-2) Rel Index Troponin I (0.01-0.034) ng/mL NT-Pro-B Natriuret Pep (<125) pg/mL Total Protein (6.3-8.2) g/dL Albumin (3.5-5.0) g/dL Globulin (1.7-4.1) g/dL Albumin/Globulin Ratio (1.0-2.8) Lipase (23-300) U/L Procalcitonin (<0.5) ng/mL Urine Color Yellow Urine Appearance Sl cloudy Urine pH 7.5 (4.5-8.0) Ur Specific Prichard 1.015 (1.000-1.035) Urine Protein 1+ H (Negative) Urine Glucose (UA) Negative (Negative) g/dL Urine Ketones Negative (NEGATIVE) Urine Occult Blood 3+ H (Negative) Urine Nitrate Negative (Negative) Urine Bilirubin Negative (NEGATIVE) Urine Urobilinogen 0.2 (0.2) E.U./dL Ur Leukocyte Esterase 2+ H (NEGATIVE) Urine RBC 10-30/hpf H (0-5/HPF) Urine WBC 10-30/hpf H (0-5/HPF) Ur Squamous Epith Cells 0-1 /hpf (0-5/HPF) Urine Bacteria None seen (None) Ur Culture Indicated? Culture not indicate Ethyl Alcohol ( - 10) mg/dL SARS-CoV-2 (PCR) Negative (Negative) 01/16/22 01/16/22 01/16/22 Range/Units 12:07 12:07 12:07 WBC (4.5-11.0) X10^3/uL RBC (4.0-5.2) X10^6/uL Hgb (12.0-16.0) g/dL Hct (36-46) % MCV (80-100) fL MCH (26-34) PG MCHC (30-36) % RDW (11.6-14.8) % Plt Count (150-400) X10^3/uL Neut % (Auto) (50-75) % Lymph % (Auto) (25-40) % Terry % (Auto) (3-14) % Eos % (Auto) (2-4) % Baso % (Auto) (0-2) % Neut # (Auto) (4144-5551) /uL Lymph # (Auto) (3096-9804) /uL Terry # (Auto) (0-900) /uL Eos # (Auto) (0-450) /uL Baso # (Auto) (0-100) /uL PT 17.9 H (10.1-12.7) SECONDS INR 1.6 H (0.9-1.3) APTT 20 L D (26.4-36.2) SECONDS Sodium 134 L (137-145) mmol/L Potassium 3.8 (3.4-5.1) mmol/L Chloride 99 (98-107) mmol/L Carbon Dioxide 30 (22-32) mmol/L BUN 26 H (7-17) mg/dL Creatinine 1.07 H (0.52-1.04) mg/dL Estimated GFR 50.1 L (>60) mL/min BUN/Creatinine Ratio 24.3 H (6-22) Glucose 200 H (80-110) mg/dL Lactate (0.7-2.1) mmol/L Calcium 8.3 L (8.4-10.2) mg/dL Magnesium (1.6-2.3) mg/dL Total Bilirubin 1.4 H (0.2-1.3) mg/dL AST 25 (14-36) IU/L ALT 36 H (<35) IU/L Alkaline Phosphatase 124 (38-126) U/L Total Creatine Kinase 41 (30-135) U/L CK-MB (CK-2) TNP CK-MB (CK-2) Rel Index TNP Troponin I 0.012 (0.01-0.034) ng/mL NT-Pro-B Natriuret Pep 6230 H (<125) pg/mL Total Protein 6.8 (6.3-8.2) g/dL Albumin 3.6 (3.5-5.0) g/dL Globulin 3.2 (1.7-4.1) g/dL Albumin/Globulin Ratio 1.1 (1.0-2.8) Lipase (23-300) U/L Procalcitonin (<0.5) ng/mL Urine Color Urine Appearance Urine pH (4.5-8.0) Ur Specific Prichard (1.000-1.035) Urine Protein (Negative) Urine Glucose (UA) (Negative) g/dL Urine Ketones (NEGATIVE) Urine Occult Blood (Negative) Urine Nitrate (Negative) Urine Bilirubin (NEGATIVE) Urine Urobilinogen (0.2) E.U./dL Ur Leukocyte Esterase (NEGATIVE) Urine RBC (0-5/HPF) Urine WBC (0-5/HPF) Ur Squamous Epith Cells (0-5/HPF) Urine Bacteria (None) Ur Culture Indicated? Ethyl Alcohol < 10 ( - 10) mg/dL SARS-CoV-2 (PCR) (Negative) 01/16/22 01/16/22 01/16/22 Range/Units 12:07 12:07 13:10 WBC (4.5-11.0) X10^3/uL RBC (4.0-5.2) X10^6/uL Hgb (12.0-16.0) g/dL Hct (36-46) % MCV (80-100) fL MCH (26-34) PG MCHC (30-36) % RDW (11.6-14.8) % Plt Count (150-400) X10^3/uL Neut % (Auto) (50-75) % Lymph % (Auto) (25-40) % Terry % (Auto) (3-14) % Eos % (Auto) (2-4) % Baso % (Auto) (0-2) % Neut # (Auto) (5352-8258) /uL Lymph # (Auto) (6459-0665) /uL Terry # (Auto) (0-900) /uL Eos # (Auto) (0-450) /uL Baso # (Auto) (0-100) /uL PT (10.1-12.7) SECONDS INR (0.9-1.3) APTT (26.4-36.2) SECONDS Sodium (137-145) mmol/L Potassium (3.4-5.1) mmol/L Chloride (98-107) mmol/L Carbon Dioxide (22-32) mmol/L BUN (7-17) mg/dL Creatinine (0.52-1.04) mg/dL Estimated GFR (>60) mL/min BUN/Creatinine Ratio (6-22) Glucose (80-110) mg/dL Lactate 2.2 H (0.7-2.1) mmol/L Calcium (8.4-10.2) mg/dL Magnesium 1.8 (1.6-2.3) mg/dL Total Bilirubin (0.2-1.3) mg/dL AST (14-36) IU/L ALT (<35) IU/L Alkaline Phosphatase (38-126) U/L Total Creatine Kinase (30-135) U/L CK-MB (CK-2) CK-MB (CK-2) Rel Index Troponin I (0.01-0.034) ng/mL NT-Pro-B Natriuret Pep (<125) pg/mL Total Protein (6.3-8.2) g/dL Albumin (3.5-5.0) g/dL Globulin (1.7-4.1) g/dL Albumin/Globulin Ratio (1.0-2.8) Lipase 23 (23-300) U/L Procalcitonin 0.04 (<0.5) ng/mL Urine Color Urine Appearance Urine pH (4.5-8.0) Ur Specific Prichard (1.000-1.035) Urine Protein (Negative) Urine Glucose (UA) (Negative) g/dL Urine Ketones (NEGATIVE) Urine Occult Blood (Negative) Urine Nitrate (Negative) Urine Bilirubin (NEGATIVE) Urine Urobilinogen (0.2) E.U./dL Ur Leukocyte Esterase (NEGATIVE) Urine RBC (0-5/HPF) Urine WBC (0-5/HPF) Ur Squamous Epith Cells (0-5/HPF) Urine Bacteria (None) Ur Culture Indicated? Ethyl Alcohol ( - 10) mg/dL SARS-CoV-2 (PCR) (Negative) Imaging Data CT scan - head: Radiologist's Impression: [address] [address] [address] Scan Report Signed Patient: Lilliana Garcia MR#: [id number] : 1945 Acct:[id number] Age/Sex: 76 / F Date of Service: 01/16/22 Loc: ED Accession Number: [id number] ?? Procedure: CT head/brain wo con Ordering Provider: Dav Drake D.O. PROCEDURE:? CT HEAD/BRAIN WO CON ? INDICATIONS:? Slurred speech ? TECHNIQUE:? Noncontrast 4.5 mm thick angled axial sections acquired from the foramen magnum to the vertex, with coronal and sagittal reformats.? For radiation dose reduction, the following was used:? automated exposure control, adjustment of mA and/or kV according to patient size.? ? COMPARISON:? [facility], CT, CT ANGIO HEAD AND NECK, 01/16/2022, 10:44.? [facility], MR, MR SEIZURE BRAIN W&WO CON, 01/04/2017, 21:06.? [facility], CT, HEAD WITHOUT CONTRAST, 07/22/2012, 18:34. ? FINDINGS:? Image quality:? Excellent.? ? CSF spaces:? Basal cisterns are patent.? No extra-axial fluid collections.? The ventricles are symmetric in size and shape.? ? Brain:? Areas of remote infarction are seen, including a relatively broad area of infarction involving the posterior left MCA territory. ? No intracranial bleeds or masses.? There is cerebral volume loss for age, with resultant ventricular and sulcal prominence.? There are periventricular and deep white matter chronic small vessel ischemic changes.? There is intracranial internal carotid artery atherosclerosis.? ? Skull and face:? Calvarium and visualized facial bones appear intact, without suspicious lesions.? ? Sinuses:? Visualized sinuses and mastoids are clear.? ? IMPRESSION:? Areas of remote infarction, without a malou, acute abnormality seen on this noncontrast head CT. ? If there is strong clinical suspicion for an acute stroke, please consider a brain MRI for further evaluation, as it is more sensitive (assuming that there is no contraindication to MRI). ? No acute intracranial hemorrhage is seen.? ? ? Dictated by: Db Kinsey M.D. on 01/16/2022 at 10:07 ? ? Approved by: Db Kinsey M.D. on 01/16/2022 at 10:08?? CTA - brain/neck: Radiologist's Impression: [address] [address] [address] Scan Report Signed Patient: Lilliana Garcia MR#: [id number] : 1945 Acct:[id number] Age/Sex: 76 / F Date of Service: 01/16/22 Loc: ED Accession Number: [id number] ?? Procedure: CT angio head and neck Ordering Provider: Dav Drake D.O. PROCEDURE:? CT ANGIO HEAD AND NECK ? INDICATIONS:? Slurred speech ? TECHNIQUE:? Noncontrast images were performed earlier in the day and not repeated.? ? After the administration of intravenous contrast, 1 mm thick sections acquired from the aortic arch through the [place] of [place].? Post-contrast 4.5 mm thick sections then re-acquired from the foramen magnum to the vertex.? 3-dimensional lictpwe-vctbeeaxx-qiheoksyhp (MIP) and/or volume rendering reformats were acquired of the central intracranial vasculature and neck separately. ? COMPARISON:? [facility], CT, HEAD WITHOUT CONTRAST, 07/22/2012, 18:34.? [facility], CT, HEAD WITHOUT CONTRAST, 12/01/2008, 18:15.? [facility], CT, CT HEAD/BRAIN WO CON, 01/16/2022, 10:44.? [facility], MR, MR SEIZURE BRAIN W&WO CON, 01/04/2017, 21:06.? [facility], CT, BRAIN W/O CONTRAST, 12/26/2012, 4:48. ? FINDINGS:? Image quality:? Limited by bolus timing with venous contamination ? BRAIN:? CSF spaces:? Ventricles are normal in size and shape.? Basal cisterns are patent.? No extra-axial fluid collections.? ? Brain:? Note is made of age-appropriate brain parenchymal volume loss and chronic small vessel ischemic changes.? A broad area of encephalomalacia is again seen involving the left posterior MCA territory.? ? No midline shift.? No intracranial bleeds or masses.? Rodriguez-white matter interface appears intact.? ? Skull and face:? Calvarium and facial bones appear intact, without suspicious lesions.? Orbits appear normal.? ? Sinuses:? Sinuses and mastoids are clear.? ? HEAD CT ANGIOGRAPHY:? Anterior circulation:? Intracranial internal carotid arteries are normal in size and flow.? The flow within the paired anterior cerebral arteries is normal and symmetric.? The flow within the middle cerebral arteries is normal and symmetric.? The anterior communicating artery is seen.? No aneurysms are seen.? ? Posterior circulation:? There is poor flow seen within the right V4 segment.? The flow within the left V4 segment is within normal limits.? There is a normal appearing basilar artery.? Flow within the posterior cerebral arteries is normal and symmetric.? No aneurysms are seen.? ? NECK CT ANGIOGRAPHY:? Carotid system:? Incidental note is made of a common origin of the right brachiocephalic artery and the left common carotid artery (bovine type arch). This is considered to be a developmental variant of no clinical consequence. ? The origins of the common carotid arteries appear patent.? The left common carotid artery demonstrates irregularity with relatively prominent soft plaque, without to 40% luminal narrowing.? No significant narrowing can be seen involving the right common carotid artery.? Both common carotid arteries are relatively highly tortuous.? ? The bifurcation regions demonstrate atherosclerotic irregularity and calcification.? There is approximately 80% narrowing involving the right proximal internal carotid artery.? There is approximately 30% narrowing seen involving the left proximal internal carotid artery.? The more distal internal carotid arteries demonstrate tortuosity, particularly on the left. ? Posterior circulation:? 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 Only a scant amount of flow can be within the right vertebral artery, which is restored via collateral circulation.? The extracranial left vertebral artery demonstrates a normal origin and normal flow, without a focal stenosis. ? Soft tissues:? Visualized neck soft tissues demonstrate no suspicious abnormalities.? Likely scarring versus atelectasis is seen at the right lung apex.? At least moderate coronary artery calcification is seen. ? Bones:? No suspicious bony lesions.? Visualized cervical spine appears normally aligned.? There is at least moderate cervical spine degenerative change. ? ? IMPRESSION:? Stenosis can be seen involving both proximal internal carotid arteries, approximately 80% on the right and approximately 30% on the left. ? Broad soft plaque can be seen involving the left common carotid artery, with up to 40% luminal narrowing. ? 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 Poor flow seen throughout the right vertebral artery. ? The internal carotid arteries and the common carotid arteries demonstrate tortuosity. ? There is a remote left MCA territory infarction, as previously demonstrated. ? ? Incidental note is made of: At least moderate cervical spine degenerative change Bovine type aortic branching pattern At least moderate coronary artery calcification Likely scarring versus atelectasis at the right lung apex ? ? ? Any quantitative measurements of stenosis were performed using NASCET criteria.? ? ? Dictated by: Db Kinsey M.D. on 01/16/2022 at 10:09 ? ? Approved by: Db Kinsey M.D. on 01/16/2022 at 10:17? Chest x-ray: Radiologist's Impression: [address] [address] XRay Report Signed Patient: Lilliana Garcia MR#: [id number] : 1945 Acct:[id number] Age/Sex: 76 / F Date of Service: 01/16/22 Loc: ED Accession Number: [id number] ?? Procedure: XR chest 1V Ordering Provider: Dav Drake D.O. PROCEDURE:? XR CHEST 1V ? INDICATIONS:? eval for pna ? TECHNIQUE:? One view of the chest was acquired.? ? COMPARISON:? [facility], CR, XR CHEST 1V, 01/12/2022, 12:00. ? FINDINGS:? ? Surgical changes and devices:? None.? ? Lungs and pleura:? Diffuse interstitial thickening.? Thickening of the right minor fissure.? No dense consolidations. ? Mediastinum:? Moderately enlarged heart, similar to prior.? Stable aortic contour.? Mild central vascular prominence. ? Bones and chest wall:? Degenerative changes in both shoulders. ? IMPRESSION:? Cardiomegaly with mild central vascular and diffuse interstitial prominence, chronic. ? No dense consolidation to suggest focal pneumonia. ? ? Dictated by: Sisi Cavanaugh M.D. on 01/16/2022 at 11:25 ? ? Approved by: Sisi Cavanaugh M.D. on 01/16/2022 at 11:27?? MDM Narrative Medical decision making narrative: Patient is outside the window for tPA. Last known normal was last evening. She is also taking warfarin but she is subtherapeutic on this. She has her baseline right-sided neurologic changes. She is not slurring her words today. She does have an elevated heart rate. Is in AFib. Started on Cardizem. CTA and head CT do not show any acute pathology. Discussed case with Dr. Zavala. Will admit for further evaluation and treatment. Discharge Plan Departure Patient Disposition: Admitted as Observation Clinical Impression: Atrial fibrillation with RVR, Hypertension, Alteration in speech Admit Date/Time: 01/16/22 13:50 Admit Provider: Carlton Zavala
[2022-01-16 11:56] LABS: Appearance Urine UA SL CLOUDY; Bilirubin Urine UA NEGATIVE (NEGATIVE); Color Urine UA YELLOW; Glucose Urine UA NEGATIVE (Negative); Ketones Urine UA NEGATIVE (NEGATIVE); Leukocyte Esterase Urine UA 2+ (NEGATIVE); Nitrite Urine UA NEGATIVE (Negative); Occult Blood Urine UA 3+ (Negative); Protein Urine UA 1+ (Negative); Specific Gravity Urine UA 1.015 (1.000-1.035); Urobilinogen Urine UA 0.2 E.U./dL (0.2)
[2022-01-16 11:57] LABS: pH Urine UA 7.5 (4.5-8.0)
[2022-01-16 12:03] LABS: Bacteria Urine None Seen; RBC Urine 10-30/HPF (0-5/HPF); Squamous Epithelial Cell Urine 0-1 /HPF (0-5/HPF); WBC Urine 10-30/HPF (0-5/HPF)
[2022-01-16] MEDS: dilTIAZem 5 MG/ML SDV 20 MG IV (12:12)
[2022-01-16 12:16] LABS: Add Manual Diff / Slide Review NO; Basophils Absolute Auto 100 /uL (0-100); Eosinophils Absolute Auto 100 /uL (0-450); Eosinophils Percent Auto 0.8 % (2-4); Hematocrit 40.4 % (36-46); Hemoglobin 12.7 g/dL (12.0-16.0); Lymphocytes Absolute Auto 800 /uL (1100-4500); Lymphocytes Percent Auto 10.2 % (25-40); Mean Corpuscular HGB Conc 31.4 % (30-36); Mean Corpuscular Hemoglobin 25.9 PG (26-34); Mean Corpuscular Volume 82.6 fL (80-100); Monocytes Absolute Auto 600 /uL (0-900); Monocytes Percent Auto 7.7 % (3-14); Neutrophils Absolute Auto 6600 /uL (1500-7000); Neutrophils Percent Auto 80.3 % (50-75); Platelet Count 272 X10^3/uL (150-400); Red Blood Cell Count 4.89 X10^6/uL (4.0-5.2); Red Cell Distribution Width 17.7 % (11.6-14.8); White Blood Cell Count 8.2 X10^3/uL (4.5-11.0)
[2022-01-16] MEDS: cefTRIAXone 1,000 MG in SODIUM CHLORIDE 0.9% 100 ML 200 ML IV (12:17)
[2022-01-16 12:24] LABS: INR 1.6 (0.9-1.3); Prothrombin Time 17.9 SECONDS (10.1-12.7)
[2022-01-16 12:26] LABS: PTT Partial Thromboplastin Tim 20 SECONDS (26.4-36.2)
[2022-01-16 12:31] LABS: Alanine Aminotransferase 36 IU/L (<35); Albumin 3.6 g/dL (3.5-5.0); Albumin Globulin Ratio 1.1 (1.0-2.8); Alkaline Phosphatase 124 U/L (38-126); Aspartate Aminotransferase 25 IU/L (14-36); BUN Creatinine Ratio 24.3 (6-22); Bilirubin Total 1.4 mg/dL (0.2-1.3); Blood Urea Nitrogen 26 mg/dL (7-17); Calcium 8.3 mg/dL (8.4-10.2); Carbon Dioxide 30 mmol/L (22-32); Chloride 99 mmol/L (98-107); Creatine Kinase 41 U/L (30-135); Estimated Glomerular Filt Rate 50.1 mL/min (>60); Ethanol (ETOH) < 10 mg/dL; Globulin 3.2 g/dL (1.7-4.1); Glucose 200 mg/dL (80-110); HEMOLYSIS < 15 (0-50); Lipase 23 U/L (23-300); Magnesium 1.8 mg/dL (1.6-2.3); Potassium 3.8 mmol/L (3.4-5.1); Sodium 134 mmol/L (137-145); Total Protein 6.8 g/dL (6.3-8.2)
[2022-01-16 12:43] LABS: NT-proBNP (BNP-Adult 18+) 6230 pg/mL (<125); Troponin I 0.012 ng/mL (0.01-0.034)
[2022-01-16 12:47] LABS: Procalcitonin 0.04 ng/mL (<0.5)
[2022-01-16] MEDS: dilTIAZem 125 MG in DEXTROSE 5 % IN WATER 100 ML IV (13:08)
[2022-01-16 13:28] LABS: Lactate (Lactic Acid) 2.2 mmol/L (0.7-2.1)
[2022-01-16 15:16] LABS: Reflexed Lactate in 2 Hours Y
--- NOTE | 2022-01-16 15:30 | PM.HP.1 ---
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 History is obtained from EMR and patient's spouse. According to her , this morning he came out and the patient was sitting and seemingly fairly normal. He bruised some coffee in came back and she looked like she was sleeping. Later in the morning he came out and he tried to wake her up but she was extremely confused and did not know where she was or the date. brought her in at that point. He further states that the patient only takes about half of her medications and nor is the rest, and admits that there is two doses of un-taken metoprolol at home currently. He thinks that she is taking her seizure medication however. He expresses concern about her increasing needs for care recently, as well as frequent emergency and hospital visits over the past month or 2. In the emergency room, the patient was noted to be in fast atrial fibrillation with rapid ventricular response. She had a mild response to diltiazem infusion. CT of her head without contrast did not show any acute abnormalities, neither did a CT angiogram of her head and neck though there is 80% stenosis of her right internal carotid artery. Chest x-ray showed a mild interstitial predominance, without focal consolidation as interpreted by me. Laboratory evaluation showed an unremarkable CBC, subtherapeutic INR at 1.6. Chemistries showed a mild hyponatremia with sodium of 134, glucose of 200, lactate of 2.2, proBNP 6230, troponin at 0.012. Procalcitonin was negative at 0.04. Urinalysis showed 10-30 rbc's and wbc's with positive leuk esterase consistent with possible infection. Urine was sent for culture. COVID-19 testing was negative. Patient History Medical History Acute exacerbation of CHF (congestive heart failure) Atrial fibrillation with rapid ventricular response CHF exacerbation Chronic GERD Congestive heart failure COPD (chronic obstructive pulmonary disease) Depression Diabetes mellitus type 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 Essential (primary) hypertension Hemiparesis affecting right side as late effect of cerebrovascular accident History of CVA (cerebrovascular accident) Ischemic stroke Seizure Seizure disorder UTI (urinary tract infection) Ventricular tachycardia (paroxysmal) Family & Social History Family history unavailable: Yes (unable to confirm with patient's current mental status) Social History: household members spouse Tobacco & Substance use: Tobacco type cigarettes Smoking Status Current every day smoker alcohol intake current alcohol intake frequency holiday/special occasion Substance Use Type does not use Meds Home Medications and Allergies Home Medications Medication Instructions Recorded Confirmed Type lamotrigine 25 mg tablet (Lamictal) 25 mg PO DAILY #0 02/01/13 01/11/22 History nitroglycerin 0.4 mg sublingual 0.4 mg SUBLINGUAL PRN PRN #0 05/16/13 01/11/22 History tablet (Nitrostat) amlodipine 10 mg tablet (Norvasc) 10 mg PO DAILY 12/14/21 01/11/22 History fluoxetine 40 mg capsule (Prozac) 40 mg PO DAILY 12/14/21 01/11/22 History hydralazine 50 mg tablet 50 mg PO BID 12/14/21 01/11/22 History warfarin 4 mg tablet 4 mg PO 3XW 12/14/21 01/11/22 History hydrocodone 10 mg-acetaminophen 1 tab PO Q6H PRN 12/15/21 01/11/22 History 325 mg tablet insulin human U-100 NPH-regulr 25 unit SUBCUT DAILY 12/15/21 01/11/22 History 70-30 mix 100 unit/mL subcutaneous susp (Novolin 70/30 U-100 Insulin) metoprolol succinate 50 mg 50 mg PO BID #60 tab 12/15/21 01/11/22 Rx tablet,extended release 24 hr warfarin 4 mg tablet 8 mg PO 4XW 01/02/22 01/11/22 History lorazepam 0.5 mg tablet (Ativan) 0.5 mg PO BEDTIME PRN #10 tab 01/04/22 01/11/22 Rx bumetanide 1 mg tablet 0.5 mg PO DAILY #30 tab 01/13/22 Rx oxybutynin chloride 5 mg tablet 5 mg PO BID #30 tab 01/13/22 Rx Allergies Allergy/AdvReac Type Severity Reaction Status Date / Time Penicillins [PENICILLINS] AdvReac Mild Difficulty Verified 01/11/22 20:46 Breathing Review of Systems Review of Systems Narrative: Unable to perform accurate review of systems given the patient's current mental status. Exam Vital Signs (past 8 hours): - 01/16/22 10:34 01/16/22 10:35 01/16/22 10:43 Temperature 99.9 F H Pulse Rate 122 H 145 H 133 H Respiratory Rate 24 19 Blood Pressure 176/108 H Pulse Oximetry 96 95 01/16/22 11:00 01/16/22 11:01 01/16/22 11:30 Temperature Pulse Rate 127 H 134 H 133 H Respiratory Rate 19 22 Blood Pressure 209/98 H 247/124 H Pulse Oximetry 97 92 96 01/16/22 12:00 01/16/22 12:12 01/16/22 12:13 Temperature Pulse Rate 135 H 137 H 134 H Respiratory Rate 24 20 Blood Pressure 176/115 H 187/122 H 187/122 H Pulse Oximetry 96 94 01/16/22 12:16 01/16/22 12:30 01/16/22 13:00 Temperature Pulse Rate 117 H 109 H 115 H Respiratory Rate 31 H 34 H Blood Pressure 196/124 H 222/121 H Pulse Oximetry 94 97 93 01/16/22 13:01 01/16/22 13:30 01/16/22 13:37 Temperature Pulse Rate 105 H 110 H 120 H Respiratory Rate 27 H 28 H 23 Blood Pressure 169/104 H 185/124 H 179/133 H Pulse Oximetry 91 94 96 01/16/22 13:45 01/16/22 14:00 01/16/22 14:15 Temperature Pulse Rate 120 H 122 H 124 H Respiratory Rate 32 H 29 H 27 H Blood Pressure 217/132 H 191/114 H 172/103 H Pulse Oximetry 96 96 96 Oxygen Delivery Method Room Air Narrative Exam Narrative: General:? Patient is a chronically ill-appearing female, in no acute distress HEENT:? Normocephalic, atraumatic, extraocular muscles intact, oral pharynx is clear and mucous membranes are moist. Neck: supple and symmetric, trachea is midline, no cervical adenopathy. + JVD to level of the mandible. Chest:? Normal AP diameter and contour without kyphoscoliosis, no tachypnea, equal chest rise bilaterally. Lungs:? bibasilar rhonchi without wheezing. Cardio:?tachycardic and irregularly irregular, no murmur or rubs. Abdomen: S NT ND. Musculoskeletal:?R hemiparesis with contraction. Extremities: trace peripheral edema, no joint effusions. No cyanosis or clubbing. Skin:? Pale,? Warm. Neuro:? alert, unable to make words but follows commands. R facial asymmetry. Left side no weakness. Psych:? Unable to assess. Objective Labs Result Diagrams: 01/16/22 12:07 01/16/22 12:07 Labs: Laboratory Results - last 24 hr 01/16/22 01/16/22 01/16/22 10:49 11:25 12:07 WBC 8.2 RBC 4.89 Hgb 12.7 Hct 40.4 MCV 82.6 MCH 25.9 L MCHC 31.4 RDW 17.7 H Plt Count 272 Neut % (Auto) 80.3 H Lymph % (Auto) 10.2 L [place] % (Auto) 7.7 Eos % (Auto) 0.8 L Baso % (Auto) 1.0 Neut # (Auto) 6600 Lymph # (Auto) 800 L [place] # (Auto) 600 Eos # (Auto) 100 Baso # (Auto) 100 PT INR APTT Sodium Potassium Chloride Carbon Dioxide BUN Creatinine Estimated GFR BUN/Creatinine Ratio Glucose Lactate Calcium Magnesium Total Bilirubin AST ALT Alkaline Phosphatase Total Creatine Kinase CK-MB (CK-2) CK-MB (CK-2) Rel Index Troponin I NT-Pro-B Natriuret Pep Total Protein Albumin Globulin Albumin/Globulin Ratio Lipase Procalcitonin Urine Color Yellow Urine Appearance Sl cloudy Urine pH 7.5 Ur Specific [place] 1.015 Urine Protein 1+ H Urine Glucose (UA) Negative Urine Ketones Negative Urine Occult Blood 3+ H Urine Nitrate Negative Urine Bilirubin Negative Urine Urobilinogen 0.2 Ur Leukocyte Esterase 2+ H Urine RBC 10-30/hpf H Urine WBC 10-30/hpf H Ur Squamous Epith Cells 0-1 /hpf Urine Bacteria None seen Ur Culture Indicated? Culture not indicate Ethyl Alcohol SARS-CoV-2 (PCR) Negative 01/16/22 01/16/22 01/16/22 12:07 12:07 12:07 WBC RBC Hgb Hct MCV MCH MCHC RDW Plt Count Neut % (Auto) Lymph % (Auto) [place] % (Auto) Eos % (Auto) Baso % (Auto) Neut # (Auto) Lymph # (Auto) [place] # (Auto) Eos # (Auto) Baso # (Auto) PT 17.9 H INR 1.6 H APTT 20 L D Sodium 134 L Potassium 3.8 Chloride 99 Carbon Dioxide 30 BUN 26 H Creatinine 1.07 H Estimated GFR 50.1 L BUN/Creatinine Ratio 24.3 H Glucose 200 H Lactate Calcium 8.3 L Magnesium Total Bilirubin 1.4 H AST 25 ALT 36 H Alkaline Phosphatase 124 Total Creatine Kinase 41 CK-MB (CK-2) TNP CK-MB (CK-2) Rel Index TNP Troponin I 0.012 NT-Pro-B Natriuret Pep 6230 H Total Protein 6.8 Albumin 3.6 Globulin 3.2 Albumin/Globulin Ratio 1.1 Lipase Procalcitonin Urine Color Urine Appearance Urine pH Ur Specific [place] Urine Protein Urine Glucose (UA) Urine Ketones Urine Occult Blood Urine Nitrate Urine Bilirubin Urine Urobilinogen Ur Leukocyte Esterase Urine RBC Urine WBC Ur Squamous Epith Cells Urine Bacteria Ur Culture Indicated? Ethyl Alcohol < 10 SARS-CoV-2 (PCR) 01/16/22 01/16/22 01/16/22 12:07 12:07 13:10 WBC RBC Hgb Hct MCV MCH MCHC RDW Plt Count Neut % (Auto) Lymph % (Auto) [place] % (Auto) Eos % (Auto) Baso % (Auto) Neut # (Auto) Lymph # (Auto) [place] # (Auto) Eos # (Auto) Baso # (Auto) PT INR APTT Sodium Potassium Chloride Carbon Dioxide BUN Creatinine Estimated GFR BUN/Creatinine Ratio Glucose Lactate 2.2 H Calcium Magnesium 1.8 Total Bilirubin AST ALT Alkaline Phosphatase Total Creatine Kinase CK-MB (CK-2) CK-MB (CK-2) Rel Index Troponin I NT-Pro-B Natriuret Pep Total Protein Albumin Globulin Albumin/Globulin Ratio Lipase 23 Procalcitonin 0.04 Urine Color Urine Appearance Urine pH Ur Specific [place] Urine Protein Urine Glucose (UA) Urine Ketones Urine Occult Blood Urine Nitrate Urine Bilirubin Urine Urobilinogen Ur Leukocyte Esterase Urine RBC Urine WBC Ur Squamous Epith Cells Urine Bacteria Ur Culture Indicated? Ethyl Alcohol SARS-CoV-2 (PCR) Assessment & Plan Assessment & Plan narrative: 1. Acute toxic / metabolic Encephalopathy - possible toxic metabolic encephalopathy or acute CVA with aphasia. Due to self administering medications also possible is reaction to home opiate. - MRI ordered. CT and CT angiogram without any acute pathologies. - continue antibiotics for acute cystitis - Continue diuresis for CHF exacerbation. - OT and speech ordered. Tello lift at baseline per prior notes. - less likely seizure at this time. 2. Acute cystitis - previous cystitis, but reports patient did not complete antibiotics. - continue ceftriaxone x3 days. 3. Atrial fibrillation with rapid ventricular response, present on admission.? Active.? -continue diltiazem infusion for now, given prior EF of around 30% try to titrate off dilt infusion -continue home metoprolol, non-compliance with medication likely resulting in presentation. Will need to titrate dose up likely if not resolved. -continue coumadin, INR subtherapeutic but likely due to non-compliance. 4. acute on chronic systolic heart failure, present on admission.? Active.? -the CHF exacerbation is likely related to the rapid ventricular response and whatever triggered her atrial fibrillation.? -echocardiogram to clarify current cardiac function -will diurese, suspect bumex non-compliance. 5. Diabetes mellitus type 2, present on admission.? Active.? -medium dose lispro correctional scale and follow blood sugars -resume home insulin once confirmed. 6. Prior CVA with Right hemiparesis/right hemineglect, present on admission.? Chronic.? -continue risk factor control 7.?Hypertension, present on admission.? Chronic -Amlodipine and Metoprolol, may need to increase. 8. Seizures, present on admission. Chronic. -Lamotrigine 9. Depression, present on admission.? Chronic. -Fluoxetine Code: DNR based on prior discussions documented, surrogate is listed as spouse. POLST states comfort measures only but this was not entirely accurate based on wishes. Dispo: currently observation in ICU, if continued encephalopathy or CVA likely inpatient. \ I have utilized all available immediate resources to obtain, update, or review the patient's current medications. COVID-19 COVID-19 status: Negative Time Spent With Patient Critical Care time: I spent a total of [] minutes of critical care time on this patient's care today; this time is exclusive of procedural time. Quality MIPS - Admit I confirm the patient?s Advance Care Plan is present, Code status is documented, Surrogate decision maker is in patient?s record [If Yes, STOP here]: Yes
[2022-01-16 16:02] LABS: Lactate 2HR (Lactic Acid Rflx) 2.1 mmol/L (0.7-2.1)
[2022-01-16] MEDS: FUROSEMIDE 100 MG/10 ML VIAL 60 MG IV (16:23)
--- NOTE | 2022-01-16 17:26 | PC.NURSE ---
Admit Note Patient arrived to room 226 via stretcher at 1444. Transferred to bed via slider board. Pt mostly sleeping but wakes up occasionally to voice, not consistently following commands at this time, no speech noted. Right sided facial droop and immobility of RUE and RLE noted but is pt's baseline. Afib RVR in the 130s on arrival, diltiazem gtt titrated up to 15 mg/hr and HR now in the 80-110s. Wheezing and coarse lung sounds heard, RR in the 30s, Lasix administered per MD order. Pt incontinent of urine and brief in place. Call light is within reach and bed alarm is on for safety. Unable to give anything PO due to somnolence at this time.
--- NOTE | 2022-01-16 19:41 | PM.CN.EICU ---
History of Present Illness Consult details Chief complaint: Neuro slurred speech :: This patient was seen in the Intensive Care Unit via real time interactive two-way audiovisual telecommunication. 76 year old woman with multiple hospitalizations recently for UTI tranferred ot ICU for further management of atrial fibrillation with RVR. Patient currenrly hemodynamically stable but has + UA and clealry is altered and encephaloapthic. Stared on cardizem gtt, which seems to be controllign HR but she is not awake enough to start PO meds. Currently on ceftriaxone. [facility] Medical History Acute exacerbation of CHF (congestive heart failure) Atrial fibrillation with rapid ventricular response CHF exacerbation Chronic GERD Congestive heart failure COPD (chronic obstructive pulmonary disease) Depression Diabetes mellitus type 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 Essential (primary) hypertension Hemiparesis affecting right side as late effect of cerebrovascular accident History of CVA (cerebrovascular accident) Ischemic stroke Seizure Seizure disorder UTI (urinary tract infection) Ventricular tachycardia (paroxysmal) Social History household members: spouse Smoking Status: Current every day smoker alcohol intake: current Current Medications Current Medications Medications: Home Medications lamotrigine 25 mg tablet (Lamictal) 25 mg PO DAILY #0 02/01/13 [History Confirmed 01/16/22] nitroglycerin 0.4 mg sublingual tablet (Nitrostat) 0.4 mg SUBLINGUAL PRN PRN #0 05/16/13 [History Confirmed 01/16/22] amlodipine 10 mg tablet (Norvasc) 10 mg PO DAILY 12/14/21 [History Confirmed 01/16/22] fluoxetine 40 mg capsule (Prozac) 40 mg PO DAILY 12/14/21 [History Confirmed 01/16/22] hydralazine 50 mg tablet 50 mg PO BID 12/14/21 [History Confirmed 01/16/22] warfarin 4 mg tablet 4 mg PO 3XW 12/14/21 [History Confirmed 01/16/22] hydrocodone 10 mg-acetaminophen 325 mg tablet 1 tab PO Q6H PRN 12/15/21 [History Confirmed 01/16/22] insulin human U-100 NPH-regulr 70-30 mix 100 unit/mL subcutaneous susp (Novolin 70/30 U-100 Insulin) 25 unit SUBCUT DAILY 12/15/21 [History Confirmed 01/16/22] metoprolol succinate 50 mg tablet,extended release 24 hr 50 mg PO BID #60 tab 12/15/21 [Rx Confirmed 01/16/22] warfarin 4 mg tablet 8 mg PO 4XW 01/02/22 [History Confirmed 01/16/22] lorazepam 0.5 mg tablet (Ativan) 0.5 mg PO BEDTIME PRN #10 tab 01/04/22 [Rx Confirmed 01/16/22] bumetanide 1 mg tablet 0.5 mg PO DAILY #30 tab 01/13/22 [Rx Confirmed 01/16/22] oxybutynin chloride 5 mg tablet 5 mg PO BID #30 tab 01/13/22 [Rx Confirmed 01/16/22] Visit Medications (administered) Generic Name Dose Route Start Last Admin Trade Name Freq PRN Reason Stop Dose Admin Diltiazem HCl 125 mg/ Dextrose 125 mls @ 5 mls/hr 01/16/22 11:35 01/16/22 15:30 IV 15 mg/hr TITRATE KAYLAN 15 mls/hr Titration Protocol 5 MG/HR Warfarin Sodium 5 mg 01/16/22 17:00 01/16/22 18:03 Warfarin 5 Mg Tablet PO Not Given DAILY@1700 [facility] Exam Vital Signs (past 8 hours): - 01/16/22 12:00 01/16/22 12:12 01/16/22 12:13 Temperature Pulse Rate 135 H 137 H 134 H Respiratory Rate 24 20 Blood Pressure 176/115 H 187/122 H 187/122 H Pulse Oximetry 96 94 01/16/22 12:16 01/16/22 12:30 01/16/22 13:00 Temperature Pulse Rate 117 H 109 H 115 H Respiratory Rate 31 H 34 H Blood Pressure 196/124 H 222/121 H Pulse Oximetry 94 97 93 01/16/22 13:01 01/16/22 13:30 01/16/22 13:37 Temperature Pulse Rate 105 H 110 H 120 H Respiratory Rate 27 H 28 H 23 Blood Pressure 169/104 H 185/124 H 179/133 H Pulse Oximetry 91 94 96 01/16/22 13:45 01/16/22 14:00 01/16/22 14:15 Temperature Pulse Rate 120 H 122 H 124 H Respiratory Rate 32 H 29 H 27 H Blood Pressure 217/132 H 191/114 H 172/103 H Pulse Oximetry 96 96 96 01/16/22 15:00 01/16/22 16:00 01/16/22 17:00 Temperature 97.9 F Pulse Rate 114 H 110 H 112 H Respiratory Rate 26 H 24 20 Blood Pressure 163/96 H 174/96 H 181/122 H Pulse Oximetry 95 99 95 01/16/22 18:01 Temperature Pulse Rate 94 H Respiratory Rate 23 Blood Pressure 141/116 H Pulse Oximetry 95 Oxygen Delivery Method Room Air Oxygen Flow Rate 0 Narrative Exam Narrative: surrogate for exam is primary team Objective Labs Result Diagrams: 01/16/22 12:07 01/16/22 12:07 Labs: Laboratory Results - last 24 hr 01/16/22 01/16/22 01/16/22 10:49 11:25 12:07 WBC 8.2 RBC 4.89 Hgb 12.7 Hct 40.4 MCV 82.6 MCH 25.9 L MCHC 31.4 RDW 17.7 H Plt Count 272 Neut % (Auto) 80.3 H Lymph % (Auto) 10.2 L [place] % (Auto) 7.7 Eos % (Auto) 0.8 L Baso % (Auto) 1.0 Neut # (Auto) 6600 Lymph # (Auto) 800 L [place] # (Auto) 600 Eos # (Auto) 100 Baso # (Auto) 100 PT INR APTT Sodium Potassium Chloride Carbon Dioxide BUN Creatinine Estimated GFR BUN/Creatinine Ratio Glucose Lactate Calcium Magnesium Total Bilirubin AST ALT Alkaline Phosphatase Total Creatine Kinase CK-MB (CK-2) CK-MB (CK-2) Rel Index Troponin I NT-Pro-B Natriuret Pep Total Protein Albumin Globulin Albumin/Globulin Ratio Lipase Procalcitonin Urine Color Yellow Urine Appearance Sl cloudy Urine pH 7.5 Ur Specific [place] 1.015 Urine Protein 1+ H Urine Glucose (UA) Negative Urine Ketones Negative Urine Occult Blood 3+ H Urine Nitrate Negative Urine Bilirubin Negative Urine Urobilinogen 0.2 Ur Leukocyte Esterase 2+ H Urine RBC 10-30/hpf H Urine WBC 10-30/hpf H Ur Squamous Epith Cells 0-1 /hpf Urine Bacteria None seen Ur Culture Indicated? Culture not indicate Ethyl Alcohol SARS-CoV-2 (PCR) Negative 01/16/22 01/16/22 01/16/22 12:07 12:07 12:07 WBC RBC Hgb Hct MCV MCH MCHC RDW Plt Count Neut % (Auto) Lymph % (Auto) [place] % (Auto) Eos % (Auto) Baso % (Auto) Neut # (Auto) Lymph # (Auto) [place] # (Auto) Eos # (Auto) Baso # (Auto) PT 17.9 H INR 1.6 H APTT 20 L D Sodium 134 L Potassium 3.8 Chloride 99 Carbon Dioxide 30 BUN 26 H Creatinine 1.07 H Estimated GFR 50.1 L BUN/Creatinine Ratio 24.3 H Glucose 200 H Lactate Calcium 8.3 L Magnesium Total Bilirubin 1.4 H AST 25 ALT 36 H Alkaline Phosphatase 124 Total Creatine Kinase 41 CK-MB (CK-2) TNP CK-MB (CK-2) Rel Index TNP Troponin I 0.012 NT-Pro-B Natriuret Pep 6230 H Total Protein 6.8 Albumin 3.6 Globulin 3.2 Albumin/Globulin Ratio 1.1 Lipase Procalcitonin Urine Color Urine Appearance Urine pH Ur Specific [place] Urine Protein Urine Glucose (UA) Urine Ketones Urine Occult Blood Urine Nitrate Urine Bilirubin Urine Urobilinogen Ur Leukocyte Esterase Urine RBC Urine WBC Ur Squamous Epith Cells Urine Bacteria Ur Culture Indicated? Ethyl Alcohol < 10 SARS-CoV-2 (PCR) 01/16/22 01/16/22 01/16/22 12:07 12:07 13:10 WBC RBC Hgb Hct MCV MCH MCHC RDW Plt Count Neut % (Auto) Lymph % (Auto) [place] % (Auto) Eos % (Auto) Baso % (Auto) Neut # (Auto) Lymph # (Auto) [place] # (Auto) Eos # (Auto) Baso # (Auto) PT INR APTT Sodium Potassium Chloride Carbon Dioxide BUN Creatinine Estimated GFR BUN/Creatinine Ratio Glucose Lactate 2.2 H Calcium Magnesium 1.8 Total Bilirubin AST ALT Alkaline Phosphatase Total Creatine Kinase CK-MB (CK-2) CK-MB (CK-2) Rel Index Troponin I NT-Pro-B Natriuret Pep Total Protein Albumin Globulin Albumin/Globulin Ratio Lipase 23 Procalcitonin 0.04 Urine Color Urine Appearance Urine pH Ur Specific [place] Urine Protein Urine Glucose (UA) Urine Ketones Urine Occult Blood Urine Nitrate Urine Bilirubin Urine Urobilinogen Ur Leukocyte Esterase Urine RBC Urine WBC Ur Squamous Epith Cells Urine Bacteria Ur Culture Indicated? Ethyl Alcohol SARS-CoV-2 (PCR) 01/16/22 15:43 WBC RBC Hgb Hct MCV MCH MCHC RDW Plt Count Neut % (Auto) Lymph % (Auto) [place] % (Auto) Eos % (Auto) Baso % (Auto) Neut # (Auto) Lymph # (Auto) [place] # (Auto) Eos # (Auto) Baso # (Auto) PT INR APTT Sodium Potassium Chloride Carbon Dioxide BUN Creatinine Estimated GFR BUN/Creatinine Ratio Glucose Lactate 2.1 Calcium Magnesium Total Bilirubin AST ALT Alkaline Phosphatase Total Creatine Kinase CK-MB (CK-2) CK-MB (CK-2) Rel Index Troponin I NT-Pro-B Natriuret Pep Total Protein Albumin Globulin Albumin/Globulin Ratio Lipase Procalcitonin Urine Color Urine Appearance Urine pH Ur Specific [place] Urine Protein Urine Glucose (UA) Urine Ketones Urine Occult Blood Urine Nitrate Urine Bilirubin Urine Urobilinogen Ur Leukocyte Esterase Urine RBC Urine WBC Ur Squamous Epith Cells Urine Bacteria Ur Culture Indicated? 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
[2022-01-16] MEDS: CEFEPIME 1 GM in SODIUM CHLORIDE 0.9% 100 ML 200 ML IV (21:00)
[2022-01-16] MEDS: LABETALOL 20 MG/4 ML SYRINGE 10 MG IV (22:11)
[2022-01-17] VITALS (39 sets, daily range): BP systolic 128–201; BP diastolic 64–117; PULSE 74–118; RESP 17–39; TEMP 35.7–36.8; O2SAT 83–98
[2022-01-17 04:55] LABS: Add Manual Diff / Slide Review NO; Basophils Absolute Auto 100 /uL (0-100); Basophils Percent Auto 0.8 % (0-2); Eosinophils Absolute Auto 100 /uL (0-450); Eosinophils Percent Auto 0.7 % (2-4); Hematocrit 39.9 % (36-46); Hemoglobin 12.7 g/dL (12.0-16.0); Lymphocytes Absolute Auto 700 /uL (1100-4500); Lymphocytes Percent Auto 8.9 % (25-40); Mean Corpuscular HGB Conc 31.8 % (30-36); Mean Corpuscular Hemoglobin 25.6 PG (26-34); Mean Corpuscular Volume 80.7 fL (80-100); Monocytes Absolute Auto 600 /uL (0-900); Monocytes Percent Auto 7.6 % (3-14); Neutrophils Absolute Auto 6400 /uL (1500-7000); Platelet Count 343 X10^3/uL (150-400); Red Blood Cell Count 4.95 X10^6/uL (4.0-5.2); Red Cell Distribution Width 17.7 % (11.6-14.8); White Blood Cell Count 7.8 X10^3/uL (4.5-11.0)
[2022-01-17 05:02] LABS: INR 1.9 (0.9-1.3); Prothrombin Time 20.9 SECONDS (10.1-12.7)
[2022-01-17 05:09] LABS: Alanine Aminotransferase 31 IU/L (<35); Albumin 3.8 g/dL (3.5-5.0); Albumin Globulin Ratio 1.1 (1.0-2.8); Alkaline Phosphatase 129 U/L (38-126); Aspartate Aminotransferase 23 IU/L (14-36); Bilirubin Total 1.9 mg/dL (0.2-1.3); Blood Urea Nitrogen 19 mg/dL (7-17); Calcium 8.6 mg/dL (8.4-10.2); Carbon Dioxide 32 mmol/L (22-32); Chloride 97 mmol/L (98-107); Estimated Glomerular Filt Rate 54.2 mL/min (>60); Globulin 3.5 g/dL (1.7-4.1); Glucose 225 mg/dL (80-110); HEMOLYSIS < 15 (0-50); Magnesium 1.8 mg/dL (1.6-2.3); Potassium 3.7 mmol/L (3.4-5.1); Sodium 136 mmol/L (137-145); Total Protein 7.3 g/dL (6.3-8.2)
--- NOTE | 2022-01-17 05:11 | PC.NURSE ---
Shift Note Patient was lethargic but arousable, confused, with right side weakness. Afebrile, vital signs within acceptable limits, with episodes of hypertensive SBP 190s, PRN labetalol given as ordered. Maintained O2 support while asleep as patient has episodes of desaturation of 85-86% at room air, applied O2 support by nasal cannula at 2lpm. Lung sounds diminished bilaterally. Patient denies any pain/discomfort. No signs of cardiorespiratory distress. Cardizem was weaned off. Will continue to monitor.
[2022-01-17] MEDS: CEFEPIME 1 GM in SODIUM CHLORIDE 0.9% 100 ML 200 ML IV ×2 (07:51→21:13)
[2022-01-17] MEDS: INSULIN LISPRO 100 UNIT/ML 3ML VIAL SUBCUT ×4 (08:07→21:15)
[2022-01-17] MEDS: METOPROLOL ER 50 MG TABLET PO (11:06)
[2022-01-17] MEDS: lamoTRIgine 25 MG CHEW TABLET 50 MG PO (11:06)
--- NOTE | 2022-01-17 11:34 | P.TELICUPN_ITS ---
Subjective Subjective :: This patient was seen in the Intensive Care Unit via real time interactive two- way audiovisual telecommunication. This patient was seen in the Intensive Care Unit via real time interactive two- way audiovisual telecommunication. 76 year old woman with multiple hospitalizations recently for UTI tranferred ot ICU for further management of atrial fibrillation with RVR. Patient currenrly hemodynamically stable but has + UA and clealry is altered and encephaloapthic. Stared on cardizem gtt, which seems to be controllign HR but she is not awake enough to start PO meds. Currently on ceftriaxone. 02/14: Seen this morning via AV technology. In NAD, looking around room. Received labetalol last night, now off cardizem drip Current Medications Current Medications Medications: Home Medications lamotrigine 25 mg tablet (Lamictal) 25 mg PO DAILY #0 02/01/13 [History Confirmed 01/16/22] nitroglycerin 0.4 mg sublingual tablet (Nitrostat) 0.4 mg SUBLINGUAL PRN PRN #0 05/16/13 [History Confirmed 01/16/22] amlodipine 10 mg tablet (Norvasc) 10 mg PO DAILY 12/14/21 [History Confirmed 01/16/22] fluoxetine 40 mg capsule (Prozac) 40 mg PO DAILY 12/14/21 [History Confirmed 01/16/22] hydralazine 50 mg tablet 50 mg PO BID 12/14/21 [History Confirmed 01/16/22] warfarin 4 mg tablet 4 mg PO 3XW 12/14/21 [History Confirmed 01/16/22] hydrocodone 10 mg-acetaminophen 325 mg tablet 1 tab PO Q6H PRN 12/15/21 [History Confirmed 01/16/22] insulin human U-100 NPH-regulr 70-30 mix 100 unit/mL subcutaneous susp (Novolin 70/30 U-100 Insulin) 25 unit SUBCUT DAILY 12/15/21 [History Confirmed 01/16/22] metoprolol succinate 50 mg tablet,extended release 24 hr 50 mg PO BID #60 tab 12/15/21 [Rx Confirmed 01/16/22] warfarin 4 mg tablet 8 mg PO 4XW 01/02/22 [History Confirmed 01/16/22] lorazepam 0.5 mg tablet (Ativan) 0.5 mg PO BEDTIME PRN #10 tab 01/04/22 [Rx Confirmed 01/16/22] bumetanide 1 mg tablet 0.5 mg PO DAILY #30 tab 01/13/22 [Rx Confirmed 01/16/22] oxybutynin chloride 5 mg tablet 5 mg PO BID #30 tab 01/13/22 [Rx Confirmed 01/16/22] Visit Medications (administered) Generic Name Dose Route Start Last Admin Trade Name Anthony PRN Reason Stop Dose Admin Diltiazem HCl 125 mg/ Dextrose 125 mls @ 5 mls/hr 01/16/22 11:35 01/17/22 01:00 IV 0 mg/hr TITRATE KAYLAN 0 mls/hr Titration Protocol 5 MG/HR Cefepime HCl 1 gm/ Sodium 100 mls @ 200 mls/hr 01/16/22 20:00 01/17/22 09:15 Chloride IV Infused Q12H KAYLAN Infusion Insulin Human Lispro 0 unit 01/17/22 07:45 01/17/22 11:15 Insulin Lispro 100 Unit/Ml 3ml Vial SUBCUT 1 unit ACHS [facility] Administration Protocol Lamotrigine 50 mg 01/17/22 09:00 01/17/22 11:06 Lamotrigine 25 Mg Chew Tablet PO 50 mg DAILY KAYLAN Administration Metoprolol Succinate 50 mg 01/16/22 21:00 01/17/22 11:06 Metoprolol Er 50 Mg Tablet PO 50 mg BID KAYLAN Administration Objective Labs Result Diagrams: 01/17/22 04:31 01/17/22 04:31 Labs: Laboratory Results - last 24 hr 01/16/22 01/16/22 01/16/22 11:25 12:07 12:07 WBC 8.2 RBC 4.89 Hgb 12.7 Hct 40.4 MCV 82.6 MCH 25.9 L MCHC 31.4 RDW 17.7 H Plt Count 272 Neut % (Auto) 80.3 H Lymph % (Auto) 10.2 L Kendall % (Auto) 7.7 Eos % (Auto) 0.8 L Baso % (Auto) 1.0 Neut # (Auto) 6600 Lymph # (Auto) 800 L Kendall # (Auto) 600 Eos # (Auto) 100 Baso # (Auto) 100 PT INR APTT Sodium 134 L Potassium 3.8 Chloride 99 Carbon Dioxide 30 BUN 26 H Creatinine 1.07 H Estimated GFR 50.1 L BUN/Creatinine Ratio 24.3 H Glucose 200 H Lactate Calcium 8.3 L Magnesium Total Bilirubin 1.4 H AST 25 ALT 36 H Alkaline Phosphatase 124 Total Creatine Kinase CK-MB (CK-2) CK-MB (CK-2) Rel Index Troponin I NT-Pro-B Natriuret Pep Total Protein 6.8 Albumin 3.6 Globulin 3.2 Albumin/Globulin Ratio 1.1 Lipase Procalcitonin Urine Color Yellow Urine Appearance Sl cloudy Urine pH 7.5 Ur Specific [place] 1.015 Urine Protein 1+ H Urine Glucose (UA) Negative Urine Ketones Negative Urine Occult Blood 3+ H Urine Nitrate Negative Urine Bilirubin Negative Urine Urobilinogen 0.2 Ur Leukocyte Esterase 2+ H Urine RBC 10-30/hpf H Urine WBC 10-30/hpf H Ur Squamous Epith Cells 0-1 /hpf Urine Bacteria None seen Ur Culture Indicated? Culture not indicate Nasal Screen MRSA (PCR) Ethyl Alcohol < 10 01/16/22 01/16/22 01/16/22 12:07 12:07 12:07 WBC RBC Hgb Hct MCV MCH MCHC RDW Plt Count Neut % (Auto) Lymph % (Auto) Kendall % (Auto) Eos % (Auto) Baso % (Auto) Neut # (Auto) Lymph # (Auto) Kendall # (Auto) Eos # (Auto) Baso # (Auto) PT 17.9 H INR 1.6 H APTT 20 L D Sodium Potassium Chloride Carbon Dioxide BUN Creatinine Estimated GFR BUN/Creatinine Ratio Glucose Lactate Calcium Magnesium 1.8 Total Bilirubin AST ALT Alkaline Phosphatase Total Creatine Kinase 41 CK-MB (CK-2) TNP CK-MB (CK-2) Rel Index TNP Troponin I 0.012 NT-Pro-B Natriuret Pep 6230 H Total Protein Albumin Globulin Albumin/Globulin Ratio Lipase 23 Procalcitonin Urine Color Urine Appearance Urine pH Ur Specific [place] Urine Protein Urine Glucose (UA) Urine Ketones Urine Occult Blood Urine Nitrate Urine Bilirubin Urine Urobilinogen Ur Leukocyte Esterase Urine RBC Urine WBC Ur Squamous Epith Cells Urine Bacteria Ur Culture Indicated? Nasal Screen MRSA (PCR) Ethyl Alcohol 01/16/22 01/16/22 01/16/22 12:07 13:10 15:43 WBC RBC Hgb Hct MCV MCH MCHC RDW Plt Count Neut % (Auto) Lymph % (Auto) Kendall % (Auto) Eos % (Auto) Baso % (Auto) Neut # (Auto) Lymph # (Auto) Kendall # (Auto) Eos # (Auto) Baso # (Auto) PT INR APTT Sodium Potassium Chloride Carbon Dioxide BUN Creatinine Estimated GFR BUN/Creatinine Ratio Glucose Lactate 2.2 H 2.1 Calcium Magnesium Total Bilirubin AST ALT Alkaline Phosphatase Total Creatine Kinase CK-MB (CK-2) CK-MB (CK-2) Rel Index Troponin I NT-Pro-B Natriuret Pep Total Protein Albumin Globulin Albumin/Globulin Ratio Lipase Procalcitonin 0.04 Urine Color Urine Appearance Urine pH Ur Specific [place] Urine Protein Urine Glucose (UA) Urine Ketones Urine Occult Blood Urine Nitrate Urine Bilirubin Urine Urobilinogen Ur Leukocyte Esterase Urine RBC Urine WBC Ur Squamous Epith Cells Urine Bacteria Ur Culture Indicated? Nasal Screen MRSA (PCR) Ethyl Alcohol 01/16/22 01/17/22 01/17/22 15:55 04:31 04:31 WBC 7.8 RBC 4.95 Hgb 12.7 Hct 39.9 MCV 80.7 MCH 25.6 L MCHC 31.8 RDW 17.7 H Plt Count 343 Neut % (Auto) 82.0 H Lymph % (Auto) 8.9 L Kendall % (Auto) 7.6 Eos % (Auto) 0.7 L Baso % (Auto) 0.8 Neut # (Auto) 6400 Lymph # (Auto) 700 L Kendall # (Auto) 600 Eos # (Auto) 100 Baso # (Auto) 100 PT 20.9 H INR 1.9 H APTT Sodium Potassium Chloride Carbon Dioxide BUN Creatinine Estimated GFR BUN/Creatinine Ratio Glucose Lactate Calcium Magnesium Total Bilirubin AST ALT Alkaline Phosphatase Total Creatine Kinase CK-MB (CK-2) CK-MB (CK-2) Rel Index Troponin I NT-Pro-B Natriuret Pep Total Protein Albumin Globulin Albumin/Globulin Ratio Lipase Procalcitonin Urine Color Urine Appearance Urine pH Ur Specific [place] Urine Protein Urine Glucose (UA) Urine Ketones Urine Occult Blood Urine Nitrate Urine Bilirubin Urine Urobilinogen Ur Leukocyte Esterase Urine RBC Urine WBC Ur Squamous Epith Cells Urine Bacteria Ur Culture Indicated? Nasal Screen MRSA (PCR) Negative for mrsa Ethyl Alcohol 01/17/22 04:31 WBC RBC Hgb Hct MCV MCH MCHC RDW Plt Count Neut % (Auto) Lymph % (Auto) [place] % (Auto) Eos % (Auto) Baso % (Auto) Neut # (Auto) Lymph # (Auto) Kend[place] # (Auto) Eos # (Auto) Baso # (Auto) PT INR APTT Sodium 136 L Potassium 3.7 Chloride 97 L Carbon Dioxide 32 BUN 19 H Creatinine 1.00 Estimated GFR 54.2 L BUN/Creatinine Ratio 19.0 Glucose 225 H Lactate Calcium 8.6 Magnesium 1.8 Total Bilirubin 1.9 H AST 23 ALT 31 Alkaline Phosphatase 129 H Total Creatine Kinase CK-MB (CK-2) CK-MB (CK-2) Rel Index Troponin I NT-Pro-B Natriuret Pep Total Protein 7.3 Albumin 3.8 Globulin 3.5 Albumin/Globulin Ratio 1.1 Lipase Procalcitonin Urine Color Urine Appearance Urine pH Ur Specific [place] Urine Protein Urine Glucose (UA) Urine Ketones Urine Occult Blood Urine Nitrate Urine Bilirubin Urine Urobilinogen Ur Leukocyte Esterase Urine RBC Urine WBC Ur Squamous Epith Cells Urine Bacteria Ur Culture Indicated? Nasal Screen MRSA (PCR) Ethyl Alcohol Exam Vital Signs (past 8 hours): - 01/17/22 04:00 01/17/22 04:44 01/17/22 04:49 Temperature 97.3 F L Pulse Rate 90 88 Respiratory Rate 23 27 H Blood Pressure 145/103 H 128/81 128/81 Pulse Oximetry 97 94 01/17/22 07:00 01/17/22 08:00 Temperature Pulse Rate 95 H 94 H Respiratory Rate 19 18 Blood Pressure 136/101 H 129/85 Pulse Oximetry 95 95 Oxygen Delivery Method Room Air Oxygen Flow Rate 2 Narrative Exam Narrative: In NAD, alert and looking around room Quality TeleICU VTE Deep Vein Thrombosis/Pulmonary Embolism Present on Admission: No Assessment & Plan Assessment & Plan narrative: Sepsis 2/2 UTI agtrial fibrillation w/ RVR, now rate controlled CHF DM recurreent UTI COPD seizure d/o previosu cva with residual deficit hyperglycemia Plan cont AED Transition cardizem to oral AVN blocking agents - currently rate controlled siupplelemntal o2 as needed for goal SPO2 92% or greater Advance diet as tolerated TTE trend labs/ replete lytes monitor UO Complete course of abx, follow C&S f/u urine cx dvt ppx - can start AC Likely transition out of ICU today by primary team Time Spent With Patient Critical Care time: I spent a total of [20] minutes of critical care time on this patient's care today; this time is exclusive of procedural time.
--- NOTE | 2022-01-17 14:27 | OT.IPNOTE ---
Per prior notes pt is smita lift and pt's family assist for all ADl needs. Therefore hold OT eval and double check with CM and hospitalist whether OT services are appropriate.
--- NOTE | 2022-01-17 15:00 | DI.CT.S_ITS ---
PROCEDURE: CT HEAD/BRAIN WO CON INDICATIONS: follow up head CT hemorrhagic conversion on MRI TECHNIQUE: Noncontrast 4.5 mm thick angled axial sections acquired from the foramen magnum to the vertex, with coronal and sagittal reformats. For radiation dose reduction, the following was used: automated exposure control, adjustment of mA and/or kV according to patient size. COMPARISON: [facility], MR, MR HEAD/BRAIN WO CON, 01/17/2022, 7:54. [facility], CT, BRAIN W/O CONTRAST, 12/26/2012, 4:48. [facility], CT, CT HEAD/BRAIN WO CON, 01/16/2022, 10:44. FINDINGS: Image quality: Excellent. CSF spaces: Basal cisterns are patent. No extra-axial fluid collections. The ventricles are symmetric in size and shape. Brain: No intracranial bleeds or masses. There is cerebral volume loss for age, with resultant ventricular and sulcal prominence. There are periventricular and deep white matter chronic small vessel ischemic changes. There is intracranial internal carotid artery atherosclerosis. There is a prominent low-attenuation in the left parietal occipital lobe. Low-attenuation although less prominent as noted previously is noted within the left frontal temporal lobe. Foci of low attenuation are also noted within right parietal occipital. Punctate foci of low attenuation are also noted within the karolina. Skull and face: Calvarium and visualized facial bones appear intact, without suspicious lesions. Sinuses: Visualized sinuses and mastoids are clear. IMPRESSION: Low attenuation within the left frontal temporal lobe most consistent with subacute ischemia. There is no visualized hemorrhage on current exam, noting gradient changes on MRI suggestive of hemorrhagic component. Low attenuation within the left frontal temporal lobe extending posteriorly to the parietal occipital lobe. Wall significant portions of the parietal occipital lobe low-attenuation appear to represent remote ischemia, superimposed areas of subacute ischemia cannot be excluded. Punctate areas of low attenuation within the karolina correlating to foci of possible subacute ischemia on MRI. Dictated by: Bee Suazo M.D. on 01/17/2022 at 15:07 Approved by: Bee Suazo M.D. on 01/17/2022 at 15:25
--- NOTE | 2022-01-17 15:16 | ST.IPCSEOM ---
Visit Care Team Role Provider Type Eric Juarez MD Primary Care Provider Non-Staff Specialty: Internal Medicine Address: [address] [place] [address], [id number] Email: Dav Drake DO Emergency Provider Physician Referring Provider Specialty: Emergency Medicine Address: [address] [place] [address], [id number] Email: [email or web address] Admit Provider Physician Attending Provider Specialty: Internal Medicine Address: [address] [place] [address], [id number] Email: [email or web address] Medical History (Last Reviewed 01/16/22 @ 19:14 by Dav Drake DO) Acute exacerbation of CHF (congestive heart failure) (Medical) Atrial fibrillation with rapid ventricular response (Medical) CHF exacerbation (Medical) Chronic GERD (Medical) Congestive heart failure (Medical) COPD (chronic obstructive pulmonary disease) (Medical) Depression (Medical) Diabetes mellitus type 2 (Medical) Diabetes type 2 with atherosclerosis of arteries of extremities (Medical) Essential (primary) hypertension (Medical) Hemiparesis affecting right side as late effect of cerebrovascular accident (Medical) History of CVA (cerebrovascular accident) (Medical) Ischemic stroke (Medical) Seizure (Medical) Seizure disorder (Medical) UTI (urinary tract infection) (Medical) Ventricular tachycardia (paroxysmal) (Medical) Speech-Language Pathology Swallow Evaluation TATTOOER Clinical Swallow Evaluation Start: 01/17/22 12:56 Freq: Status: Active Protocol: Document 01/17/22 14:47 LNK (Rec: 01/17/22 15:16 LNK [id number]) Clinical Swallow Evaluation Session Time Visit Start Time 10:20 Visit Stop Time 10:50 Total Visit Minutes 30 Setting Assessment Location Acute Care Visit Type Note Type Initial evaluation Next Note Type Next Note Type Treatment Note Patient Information Identification Type Name,Wristband History 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 1. Acute toxic / metabolic Encephalopathy - possible toxic metabolic encephalopathy or acute CVA with aphasia. Due to self administering medications also possible is reaction to home opiate. - MRI ordered. CT and CT angiogram without any acute pathologies. - continue antibiotics for acute cystitis - Continue diuresis for CHF exacerbation. - OT and speech ordered. Tello lift at baseline per prior notes. - less likely seizure at this time. Diagnoses include: Acute toxic / metabolic Encephalopathy - possible toxic metabolic encephalopathy or acute CVA with aphasia. Due to self administering medications also possible is reaction to home opiate. MRI ordered. MRI results indicate : Subacute infarcts within the left middle cerebral artery distribution, as well as the right temporal occipital lobes . Left middle cerebral artery distribution infarct demonstrates a small hemorrhagic component involving the basal ganglia. Possible small subacute infarcts within the karolina and pontomedullary junction as described above. Chronic bilateral cerebral infarcts as above Subjective Observations Pt was in bed demonstrating increased LOC and indicated she wanted to eat. Reported by Patient Current Diet Nothing by mouth Objective Assessment Mental Status Cooperative,Confused,Lethargic Oral Integrity WFL Dentition Missing teeth,Decay Comment Pt had difficulty following directions. Modeled OM movements to pt who repeatedly opened and closed her mouth to every instruction. Pt's dentition is poor with several teeth broken at the gums. Decay and missing teeth observed. Food and Liquid Trials Position During Assessment Upright (90 degrees) Liquids Trialed Ice chips,Honey Solids Trialed Puree Administration Type Tea spoon,Controlled cup sip, Needs some assistance Oral Impairment Severely impaired Oral Phase Comments Pt was needed to spit out the ice cube. She demonstrated an mature chew pattern of mastication. Puree was the only solid trial due to pt's poor dentition, difficulty with following directions, inconsistent LOC and aspiration risk. Pt was able to take her meds in a carrier without difficulty. Pharyngeal Impairment Severely impaired Pharyngeal Phase Comments Hyolaryngeal elevation was inconsistent. Pt produced immediate cough with ice chip and spit it out. [place] and honey thick liquids tried. [place] thick liquids resulted in a wet voice. Honey thick liquids were swallowed without cough/choke or wet voicing Fatigue/Endurance Moderate fatigue Strategies Attempted Chin tuck Response/Comments Responded well with verbal and tactile cues to tuck chin Findings Swallowing Function Oropharyngeal phase dysphagia Severity of Swallow Impairment Severely impaired Contributing Factors to Swallow Reduced alertness or attention Impairment ,Difficulty following directions,Mastication inefficiency,Delayed swallow initiation Prognosis Guarded Based on Cognitive status,Age, Comorbidities Comment Pt presented with severe oropharyngeal dysphagia with diminished mastication, difficulty following directions, lethargy, and a delayed swallow response. Impact on Safety and Functioning Risk for aspiration,Risk for inadequate nutrition/hydration Recommendations Instrumental Assessment No Swallowing Treatment Yes Frequency F/U as indicated - MD is discussing palliative care Recommended Solids Puree Recommended Liquids Honey Safety Precautions/Swallowing 1 to 1 close supervision,To be Recommendations fed only by trained staff/ family,Feed only when alert, Reduce distractions,Remain upright (90 degrees) during all oral intake,Needs verbal cues to use recommended strategies,Upright position at least 30 minutes after meals, Small bites and sips when eating,Slow rate; swallow between bites,No straw,1 to 1 feeding assistance,Family assistance/supervision Medication Recommendations Whole in Carrier Discharge Recommendations alf care facility,Home with Hospice,Palliative care Goals Short-term Goals St involvement as indicated, pending palliative care discussion with family
--- NOTE | 2022-01-17 15:24 | CM.DANOTE ---
Patient is a 76 yo female who is a readmit on 01/16/22 for Neuro/Slurred Speech. Pt has [employer] for insurance and her PCP is Eric Juarez. EMR was reviewed. Per MD, pt with hx of seizures, AFIB, and admitted to r/o CVA vs encephalopathy and scan showed hemoragic bleed. Pt is smita at baseline with w/c and lives with spouse in [place] and is currently open with [facility]. Pt was recently discharged on 01/11/22 to home with Resume [facility] GUE[facility] and increased PT services and has utilized BLS transport home after her most recent admissions. Patient also private pays a caregiver (family friend) to come in and help with housekeeping 1x weekly. Patient stated her DPOA is her son but she stated it's outdated and I want to redo it. Patient's is [facility] but hasn't been able to complete all the paperwork to get this in place yet. stated they do not qualify for Medicaid because they make too much money from their [facility] shelter. Per MD, met bedside with pt and spouse and discussed pt's medical situation and if preference was more Comfort focused and pt and spouse preferred SNF rehab for strengthening and then return home with [facility] when pt closer to baseline and stable. Another CT scan this evening to confirm pt's bleed is stable and not continuing to bleed and then PT/OT can work with pt and move forward with plan of SNF. DENNIS called pt's spouse and discussed above and he confirms that preference is SNF and then home and pt has hx of SNF at [facility] multiple times a few years ago. DENNIS updated him that they are now just LTC and he acknowledges understanding and states he has no SNF preference just not [facility]. Spouse confirms that pt is COVID vaccinated but just has not had her booster yet but would be agreeable to booster. DENNIS called [facility] and requested review and discussed pt situation and asked Lilliana to also send referral to Nina Crews, [facility], and [facility] tomorrow morning. DENNIS called [facility] GUEVAR[facility] and left [facility] with update on pt admission and likely plan of SNF at d/c. PASRR completed in anticipation of SNF. Plan: SW to follow closely after CT scan this afternoon to confirm no further active brain bleed and SNF referrals/review. BRI Esqueda Discharge Planning/Care Management CM Discharge Assessment Start: 01/17/22 15:20 Freq: Status: Active Protocol: Document 01/17/22 15:21 BF (Rec: 01/17/22 15:24 BF [id number]) Discharge Planning Assessment Assigned Commercial Real Estate Attorney BRI Ramachandran DPOA/Assigned Designee Name spouse Dav Contact Information [phone] Advance Directives? Yes: POLST Advance Directives on File No History Provided By Patient,Medical Record Has Patient been admitted in last 30 Yes days? Comment last admission 01/11/22 and discharged home with [facility] Prior Living Arrangements House Household Members spouse Type of transporation used prior to Relies on Others admit Independent with ADL's No Is patient alert and oriented? Yes Needs Assistance With Meal Prep,Managing Medications ,Home Chores / Shopping Caregiver for Another No Community Services used prior to Home Health Aid,Home Health admission: Nurse Comment 2 wheelchairs, smita lift, and electric scooter Patient/Family Preference Prison Facility Barriers to Discharge No Comment According to patient, her helps her at home, and she has other children that live nearby, her daughter, Taryn , who is a HEAD OF [employer]SERVATION. Discharge Plan Prison Facility Transportation Arrangement cabulance vs BLS Referrals Initiated Prison Additional Comment pt already open to [facility] GUE[facility] Medicare Choice List Provided Yes SNF/HH Preference Any SNF that can accept other than [facility] Whiteboard Updated in Patient Room with Yes name and ext. # of Commercial Real Estate Attorney Review Status In Process Please Provide Date Initial DC 01/17/22 Assessment Was Performed Next Review Type Continued Stay Review
--- NOTE | 2022-01-17 15:50 | DI.MRI.S_ITS ---
PROCEDURE: MR HEAD/BRAIN WO CON INDICATIONS: encephalopathy, ? CVA TECHNIQUE: Non-contrast axial T1 spin echo, axial T2 fast spin echo, sagittal and axial FLAIR, coronal T2 fast spin echo, axial gradient echo, axial diffusion and ADC through the brain. COMPARISON: [facility], MR, MR SEIZURE BRAIN W&WO CON, 01/04/2017, 21:06. [facility], CT, CT HEAD/BRAIN WO CON, 01/16/2022, 10:44. [facility], MR, BRAIN WITHOUT CONTRAST, 07/23/2012, 11:39. FINDINGS: Image quality: Degraded by motion artifact. CSF spaces: Ventricles appear symmetric in size and shape. Basal cisterns are patent. No extra-axial fluid collections. Brain: . There is a moderate chronic left frontoparietal infarct, as before. Small chronic right posterior temporal lobe infarct is present, as before. There is cerebral volume loss for age. There are periventricular and deep white matter chronic small vessel ischemic changes. Brainstem appears normal. Diffusion-weighted images demonstrate a moderate sized region of elevated signal intensity within the left middle cerebral artery distribution involving the frontal and temporal lobes predominantly, spanning roughly 10 cm anteroposterior. There is a new, 17 mm low gradient echo signal intensity focus within the left posterior basal ganglia in the region of subacute infarction. There are several small regions of elevated diffusion signal within the right temporal occipital lobe, largest of which measures roughly 14 mm diameter. There are a few small indeterminate regions of elevated diffusion signal intensity within the central karolina and left posterior pontomedullary junction. Normal intravascular flow voids are present. Skull and face: Calvarial bone marrow is normal in signal. Orbits are normal. Sinuses: Small amount of right mastoid fluid is present. Small left maxillary sinus retention cyst. IMPRESSION: 1. Subacute infarcts within the left middle cerebral artery distribution, as well as the right temporal occipital lobes. Left middle cerebral artery distribution infarct demonstrates a small hemorrhagic component involving the basal ganglia. 2. Possible small subacute infarcts within the karolina and pontomedullary junction as described above. 3. Chronic bilateral cerebral infarcts as above. Volume loss and small vessel ischemic disease. 4. Findings discussed with Dr. Zavala on 01/17/2022 at 09:03 hours. Dictated by: Madai Larkin M.D. on 01/17/2022 at 8:42 Approved by: Madai Larkin M.D. on 01/17/2022 at 9:04
--- NOTE | 2022-01-17 15:53 | P.PN_ITS ---
Subjective Subjective Date Patient Seen: 01/17/22 Time Patient Seen: 15:53 Interval history: Patient unable to verbalize a subjective history. However patient nods no to pain, seemingly comprehends speech and was interactive with goals of care discussion today with family. She was able to tolerate a diet with speech therapy today. MRI showed multiple acute infarcts, one with hemorrhagic conversion. Repeat head CT showed no bleeding at 6 hours after MRI, given i mprovement neurologically since admission bleeding is likely stable. Family does not wish for interventions with neurosurgery even if needed. Exam Vital Signs (past 8 hours): - 01/17/22 08:00 01/17/22 11:34 Temperature 98.3 F Pulse Rate 94 H 104 H Respiratory Rate 18 24 Blood Pressure 129/85 139/96 H Pulse Oximetry 95 95 Oxygen Delivery Method Room Air Oxygen Flow Rate 0 Narrative Exam Narrative: General:? Patient is a chronically ill-appearing female, in no acute distress HEENT:? Normocephalic, atraumatic, extraocular muscles intact, oral pharynx is clear and mucous membranes are moist. Neck: supple and symmetric, trachea is midline, no cervical adenopathy. + JVD to level of the mandible. Chest:? Normal AP diameter and contour without kyphoscoliosis, no tachypnea, equal chest rise bilaterally. Lungs:? bibasilar rhonchi without wheezing. Cardio:?tachycardic and irregularly irregular, no murmur or rubs. Abdomen: S NT ND. Musculoskeletal:?R hemiparesis with contraction. Extremities: trace peripheral edema, no joint effusions. No cyanosis or c lubbing. Skin:? Pale,? Warm. Neuro:? alert, unable to make words but follows commands. R facial asymmetry. Left side no weakness. Psych:? Unable to assess. Objective Labs Result Diagrams: 01/17/22 04:31 01/17/22 04:31 Labs: Laboratory Results - last 24 hr 01/16/22 01/16/22 01/17/22 15:43 15:55 04:31 WBC 7.8 RBC 4.95 Hgb 12.7 Hct 39.9 MCV 80.7 MCH 25.6 L MCHC 31.8 RDW 17.7 H Plt Count 343 Neut % (Auto) 82.0 H Lymph % (Auto) 8.9 L [place] % (Auto) 7.6 Eos % (Auto) 0.7 L Baso % (Auto) 0.8 Neut # (Auto) 6400 Lymph # (Auto) 700 L [place] # (Auto) 600 Eos # (Auto) 100 Baso # (Auto) 100 PT INR Sodium Potassium Chloride Carbon Dioxide BUN Creatinine Estimated GFR BUN/Creatinine Ratio Glucose Lactate 2.1 Calcium Magnesium Total Bilirubin AST ALT Alkaline Phosphatase Total Protein Albumin Globulin Albumin/Globulin Ratio Nasal Screen MRSA (PCR) Negative for mrsa 01/17/22 01/17/22 04:31 04:31 WBC RBC Hgb Hct MCV MCH MCHC RDW Plt Count Neut % (Auto) Lymph % (Auto) [place] % (Auto) Eos % (Auto) Baso % (Auto) Neut # (Auto) Lymph # (Auto) [place] # (Auto) Eos # (Auto) Baso # (Auto) PT 20.9 H INR 1.9 H Sodium 136 L Potassium 3.7 Chloride 97 L Carbon Dioxide 32 BUN 19 H Creatinine 1.00 Estimated GFR 54.2 L BUN/Creatinine Ratio 19.0 Glucose 225 H Lactate Calcium 8.6 Magnesium 1.8 Total Bilirubin 1.9 H AST 23 ALT 31 Alkaline Phosphatase 129 H Total Protein 7.3 Albumin 3.8 Globulin 3.5 Albumin/Globulin Ratio 1.1 Nasal Screen MRSA (PCR) [facility] Medical History Acute exacerbation of CHF (congestive heart failure) Atrial fibrillation with rapid ventricular response CHF exacerbation Chronic GERD Congestive heart failure COPD (chronic obstructive pulmonary disease) Depression Diabetes mellitus type 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 Essential (primary) hypertension Hemiparesis affecting right side as late effect of cerebrovascular accident History of CVA (cerebrovascular accident) Ischemic stroke Seizure Seizure disorder UTI (urinary tract infection) Ventricular tachycardia (paroxysmal) Social History household members: spouse Smoking Status: Current every day smoker alcohol intake: current Assessment & Plan Assessment & Plan narrative: 1. Acute toxic / metabolic Encephalopathy secondary to multiple Acute embolic CVAs with hemorrhagic conversion, present on admission. ?- CT and CT angiogram without any acute pathologies initially. MRI this AM showed multiple old and new infarcts in various locations of the brain consistent with embolic source. MRI also showed area of hemorrhagic conversion. Repeat head CT at 6 hours from MRI did not show bleeding. Given stable neuro exam likely stable bleeding. Family is not interested in neurosurgical intervention, and patient agrees. ?- continue antibiotics for acute cystitis ?- Continue diuresis for CHF exacerbation. ?- OT and speech to continue. Tello lift at baseline per prior notes. ?- less likely seizure at this time. - after prolonged goals of care discussion with the family, patient would not want a feeding tube if needed, would like patient to go to a rehab if she qualifies given her significant increase in needs at this time. 2. Acute cystitis ?- previous cystitis, but reports patient did not complete antibiotics. ?- continue ceftriaxone x3 days. 3. Atrial fibrillation with rapid ventricular response, present on admission.? Active.? -increase home metoprolol to 75 mg BID tonight, off of dilt infusion but rates generally borderline high at 100-110. -hold coumadin given hemorrhagic conversion. INR 1.9 today, no need for FFP or Kcentra given INR improvement and improving neurological exam. -coumadin likely contributed toward hemorrhagic conversion. 4. acute on chronic systolic heart failure, present on admission.? Active.? -the CHF exacerbation is likely related to the rapid ventricular response and w hatever triggered her atrial fibrillation.? -echocardiogram to clarify current cardiac function -will diurese, suspect bumex non-compliance. -can likely change to oral lasix tomorrow if trend continues. 5. Diabetes mellitus type 2, present on admission.? Active.? -medium dose lispro correctional scale and follow blood sugars -resume home insulin once confirmed. 6. Prior CVA with Right hemiparesis/right hemineglect, present on admission.? Chronic.? -continue risk factor control 7.?Hypertension, present on admission.? Chronic -Amlodipine and Metoprolol, may need to increase. 8. Seizures, present on admission. Chronic. -Lamotrigine 9. Depression, present on admission.? Chronic. -Fluoxetine Code: DNR based on prior discussions documented, surrogate is listed as spouse. POLST states comfort measures only but this was not what the family currently desires. Dispo: ICU given hemorrhagic component initially, stable for regular floor now given stability. Patient and family would like SNF on discharge. I spent 35 minutes providing critical care management this patient. This excludes time spent in performing separately billed procedures. I have utilized all available immediate resources to obtain, update, or review the patient's current medications. Time Spent With Patient Critical Care time: I spent a total of [] minutes of critical care time on this patient's care today; this time is exclusive of procedural time. Quality VTE Deep Vein Thrombosis/Pulmonary Embolism Present on Admission: No
[2022-01-17] MEDS: METOPROLOL ER 50 MG TABLET 75 MG PO (21:13)
[2022-01-17] MEDS: LABETALOL 20 MG/4 ML SYRINGE 10 MG IV (21:31)
[2022-01-18] VITALS (30 sets, daily range): BP systolic 131–153; BP diastolic 76–95; PULSE 84–124; RESP 12–39; TEMP 35.8–36.8; O2SAT 91–98
[2022-01-18 05:04] LABS: Add Manual Diff / Slide Review NO; Basophils Absolute Auto 100 /uL (0-100); Basophils Percent Auto 0.7 % (0-2); Eosinophils Absolute Auto 100 /uL (0-450); Eosinophils Percent Auto 0.9 % (2-4); Hematocrit 42.4 % (36-46); Hemoglobin 13.5 g/dL (12.0-16.0); Lymphocytes Absolute Auto 700 /uL (1100-4500); Lymphocytes Percent Auto 9.7 % (25-40); Mean Corpuscular HGB Conc 31.7 % (30-36); Mean Corpuscular Hemoglobin 25.9 PG (26-34); Mean Corpuscular Volume 81.6 fL (80-100); Monocytes Absolute Auto 500 /uL (0-900); Monocytes Percent Auto 7.7 % (3-14); Neutrophils Absolute Auto 5700 /uL (1500-7000); Platelet Count 369 X10^3/uL (150-400); Red Cell Distribution Width 17.2 % (11.6-14.8)
[2022-01-18 05:08] LABS: INR 1.7 (0.9-1.3); Prothrombin Time 19.1 SECONDS (10.1-12.7)
[2022-01-18 05:15] LABS: Alanine Aminotransferase 29 IU/L (<35); Albumin 3.9 g/dL (3.5-5.0); Albumin Globulin Ratio 1.1 (1.0-2.8); Alkaline Phosphatase 127 U/L (38-126); Aspartate Aminotransferase 23 IU/L (14-36); BUN Creatinine Ratio 19.8 (6-22); Bilirubin Total 2.1 mg/dL (0.2-1.3); Blood Urea Nitrogen 19 mg/dL (7-17); Calcium 8.9 mg/dL (8.4-10.2); Carbon Dioxide 28 mmol/L (22-32); Chloride 101 mmol/L (98-107); Estimated Glomerular Filt Rate 56.8 mL/min (>60); Globulin 3.4 g/dL (1.7-4.1); Glucose 292 mg/dL (80-110); HEMOLYSIS < 15 (0-50); Potassium 3.8 mmol/L (3.4-5.1); Sodium 137 mmol/L (137-145); Total Protein 7.3 g/dL (6.3-8.2)
--- NOTE | 2022-01-18 06:18 | PC.NURSE ---
0600- Patient has not voided all night. Patient states she does not feel the urge currently to go. Bladder Scanned for 500cc. Will monitor.
[2022-01-18] MEDS: INSULIN LISPRO 100 UNIT/ML 3ML VIAL SUBCUT ×2 (08:36→12:58)
[2022-01-18] MEDS: METOPROLOL ER 50 MG TABLET 75 MG PO ×2 (08:37→21:21)
[2022-01-18] MEDS: lamoTRIgine 25 MG CHEW TABLET 50 MG PO (08:37)
[2022-01-18] MEDS: CEFEPIME 1 GM in SODIUM CHLORIDE 0.9% 100 ML IV (08:50)
[2022-01-18] MEDS: HYDROCODONE/ACET 10/325 TABLET 1 TAB PO ×2 (09:18→15:45)
[2022-01-18] MEDS: LORazepam 0.5 MG TABLET PO (09:19)
[2022-01-18] MEDS: OXYBUTYNIN 5 MG TABLET PO ×2 (09:19→21:21)
--- NOTE | 2022-01-18 10:09 | CM.DPNOTE ---
[facility] & faxed to [facility] per [facility] referral packet. Received conf. Lilliana Corbett CM Assist.
--- NOTE | 2022-01-18 10:52 | OT.IPNOTE ---
Pt hard to arouse and stay awake. Per nursing aid pt needing assist for all needs. At this time not appropriate for OT gwendolyn. Chart noted that her family assist for all her needs at home and uses a smita lift. Discharge OT gwendolyn at this time.
--- NOTE | 2022-01-18 10:56 | OT.IPNOTE ---
Spoke to Dr. Zavaal regarding appropriateness of OT eval for pt as in the chart noted that pt is a smita lift at home and family assist for all needs. Per Dr. Zavala request OT to hold OT eval today. Dr. Zavala states will touch base with OT later on appropriateness of OT eval or not.
--- NOTE | 2022-01-18 11:25 | DIET.CONS ---
Dietary Consultation Note Admission Date: 01/16/2022 13:50 Assessment: 76y F admitted for multiple acute infarcts referred to nutrition for same. Pt full assist at home at baseline, after goals of care conversation, pt and family do not desire artificial nutrition. Pt much more awake this am, able to self feed and tolerating current diet of dysphagia puree with honey liquids. Pt with excellent POs. Pts BGs have been elevated this hospitalization, diet amended to be within 45g CHO per meal, will see if improves glucose control along with insulin protocol. Pt would benefit from upgraded fluid texture to nectar if deemed safe by Speech Therapy to increase ability of pt to stay adequately hydrated with PO fluids. Ht: 180.34 cm Wt: 86 kg BMI: 26.4 Last BM: () MNA: 9 Yunier Score: 17 Diet: 01/17/22 Lunch Dysphagia Diet Diet Modifications: CCD3 Liquid consistency: Honey Consistency Food texture: Dysphagia Pureed Nutrition Percent Meal Consumed 100% 01/18/22 09:32 Percent Meal Consumed apple sauce x1, nepalese yogurt x2 01/18/22 04:00 Percent Meal Consumed 85% 01/17/22 17:57 Percent Meal Consumed 0% 01/16/22 18:28 Labs: RBC 5.20 X10^6/uL (4.0-5.2) 01/18/22 04:33 Hgb 13.5 g/dL (12.0-16.0) 01/18/22 04:33 Hct 42.4 % (36-46) 01/18/22 04:33 Creatinine 0.96 mg/dL (0.52-1.04) 01/18/22 04:33 Lactate 2.1 mmol/L (0.7-2.1) 01/16/22 15:43 NT-Pro-B Natriuret Pep 6230 pg/mL (<125) H 01/16/22 12:07 Nutrition Diagnosis: none identified Interventions: 1. Recc upgrading fluid viscosity if deemed safe by speech to ensure pt is able to adquately hydrate with oral fluids to reduce risk of dehydration. Electronically Signed by: Ayesha Bernal 01/18/22 11:25 Clinical Dietitian [address] [address]
--- NOTE | 2022-01-18 12:16 | PC.NURSE ---
pt finger stick blood glucose >458. notified, lab draw ordered, awaiting results.
[2022-01-18 13:03] LABS: Glucose 450 mg/dL (80-110)
[2022-01-18] MEDS: INSULIN REGULAR 100 UNIT/ML 3 ML VIAL 10 UNIT SUBCUT (13:22)
--- NOTE | 2022-01-18 14:11 | P.PN_ITS ---
Subjective Subjective Date Patient Seen: 01/18/22 Time Patient Seen: 14:12 Interval history: Reports more pain today, she has chronic low back pain. Home medications were resumed. Patient remains stable. Exam Vital Signs (past 8 hours): - 01/18/22 08:00 01/18/22 09:10 01/18/22 10:30 Temperature 98.2 F Pulse Rate 121 H 110 H Respiratory Rate 19 Blood Pressure 131/89 131/89 Pulse Oximetry 98 96 01/18/22 12:30 Temperature 98.0 F Pulse Rate 84 Respiratory Rate 36 H Blood Pressure 148/76 H Pulse Oximetry 91 Oxygen Delivery Method Room Air Oxygen Flow Rate 0 Narrative Exam Narrative: General:? Patient is a chronically ill-appearing female, in no acute distress HEENT:? Normocephalic, atraumatic, extraocular muscles intact, oral pharynx is clear and mucous membranes are moist. Neck: supple and symmetric, trachea is midline, no cervical adenopathy. - JVD Chest:? Normal AP diameter and contour without kyphoscoliosis, no tachypnea, equal chest rise bilaterally. Lungs:? bibasilar rhonchi without wheezing. Cardio:?tachycardic and irregularly irregular, no murmur or rubs. Abdomen: S NT ND. Musculoskeletal:?R hemiparesis with contraction. Extremities: trace peripheral edema, no joint effusions. No cyanosis or clubbing. Skin:? Pale,? Warm. Neuro:? alert, unable to make words but follows commands. R facial asymmetry. Left side no weakness. Psych:? Unable to assess. Objective Labs Result Diagrams: 01/18/22 04:33 01/18/22 11:36 Labs: Laboratory Results - last 24 hr 01/18/22 01/18/22 01/18/22 04:33 04:33 04:33 WBC 7.0 RBC 5.20 Hgb 13.5 Hct 42.4 MCV 81.6 MCH 25.9 L MCHC 31.7 RDW 17.2 H Plt Count 369 Neut % (Auto) 81.0 H Lymph % (Auto) 9.7 L [place] % (Auto) 7.7 Eos % (Auto) 0.9 L Baso % (Auto) 0.7 Neut # (Auto) 5700 Lymph # (Auto) 700 L [place] # (Auto) 500 Eos # (Auto) 100 Baso # (Auto) 100 PT 19.1 H INR 1.7 H Sodium 137 Potassium 3.8 Chloride 101 Carbon Dioxide 28 BUN 19 H Creatinine 0.96 Estimated GFR 56.8 L BUN/Creatinine Ratio 19.8 Glucose 292 H Calcium 8.9 Magnesium 2.0 Total Bilirubin 2.1 H AST 23 ALT 29 Alkaline Phosphatase 127 H Total Protein 7.3 Albumin 3.9 Globulin 3.4 Albumin/Globulin Ratio 1.1 01/18/22 11:36 WBC RBC Hgb Hct MCV MCH MCHC RDW Plt Count Neut % (Auto) Lymph % (Auto) [place] % (Auto) Eos % (Auto) Baso % (Auto) Neut # (Auto) Lymph # (Auto) [place] # (Auto) Eos # (Auto) Baso # (Auto) PT INR Sodium Potassium Chloride Carbon Dioxide BUN Creatinine Estimated GFR BUN/Creatinine Ratio Glucose 450 H D Calcium Magnesium Total Bilirubin AST ALT Alkaline Phosphatase Total Protein Albumin Globulin Albumin/Globulin Ratio [facility] Medical History Acute exacerbation of CHF (congestive heart failure) Atrial fibrillation with rapid ventricular response CHF exacerbation Chronic GERD Congestive heart failure COPD (chronic obstructive pulmonary disease) Depression Diabetes mellitus type 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 Essential (primary) hypertension Hemiparesis affecting right side as late effect of cerebrovascular accident History of CVA (cerebrovascular accident) Ischemic stroke Seizure Seizure disorder UTI (urinary tract infection) Ventricular tachycardia (paroxysmal) Social History household members: spouse Smoking Status: Current every day smoker alcohol intake: current Assessment & Plan Assessment & Plan narrative: 1. 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 ?- CT and CT angiogram without any acute pathologies initially. MRI showed multiple old and new infarcts in various locations of the brain consistent with embolic source. MRI also showed area of hemorrhagic conversion. Repeat head CT at 6 hours from MRI did not show bleeding. Given stable neuro exam likely stable bleeding. Family is not interested in neurosurgical intervention, and patient agrees. ?- continue antibiotics for acute cystitis ?- OT and speech to continue. Tello lift at baseline per prior notes. ?- less likely seizure at this time. ?- after prolonged goals of care discussion with the family, patient would not want a feeding tube if needed, would like patient to go to a rehab if she qualifies given her significant increase in needs at this time. 2. Acute cystitis ?- previous cystitis, but reports patient did not complete antibiotics. ?- continue ceftriaxone x3 days. 3. Atrial fibrillation with rapid ventricular response, present on admission.? Active.? -increased home metoprolol to 75 mg BID, off of dilt infusion but rates generally borderline high though improving. -hold coumadin for at least 2 weeks given hemorrhagic conversion. INR 1.9 on day of bleeding, no need for FFP or Kcentra given INR improvement and improving neurological exam. -coumadin likely contributed toward hemorrhagic conversion. 4. acute on chronic systolic heart failure, present on admission.? Active.? -the CHF exacerbation is likely related to the rapid ventricular response and whatever triggered her atrial fibrillation.? -echocardiogram to clarify current cardiac function -now diuresis appears complete. -transition to oral furosemide 40 mg daily tomorrow. May need future adjustments depending on volume status. 5. Diabetes mellitus type 2, present on admission.? Active.? -uncontrolled sugars in 400s today. Not entirely clear why. -start lantus 20 units tonight, continue sliding scale. Given 10 U regular i nsulin to transition to evening lantus. -on 70/30 mix at home. 6. Prior CVA with Right hemiparesis/right hemineglect, present on admission.? Chronic.? -continue risk factor control 7.?Hypertension, present on admission.? Chronic -Amlodipine and Metoprolol, may need to increase. 8. Seizures, present on admission. Chronic. -Lamotrigine 9. Depression, present on admission.? Chronic. -Fluoxetine Code: DNR based on prior discussions documented, surrogate is listed as spouse. POLST states comfort measures only but this was not what the family currently desires. Dispo: Patient and family would like SNF on discharge. I have utilized all available immediate resources to obtain, update, or review the patient's current medications. Time Spent With Patient Critical Care time: I spent a total of [] minutes of critical care time on this patient's care today; this time is exclusive of procedural time. Quality VTE Deep Vein Thrombosis/Pulmonary Embolism Present on Admission: No
--- NOTE | 2022-01-18 14:48 | CM.DPC ---
Addendum entered by Mendy Shaffer R.N. 01/19/22 15:52: Spoke to Tracie in admissions at [facility], stated, she may be able to accept tomorrow. She will not be working, but Tyrone will be in the office doing admissions tomorrow. Updated hospitalist, he is aware, and will pass on to Dr. Christina since he is hospitalist tomorrow. Addendum entered by Mendy Shaffer R.N. 01/19/22 15:28: Spoke to Darrius at [facility]. She indicated, they can't take this weekend, due to not having beds, but may be able to take Saturday. Will still look for other facilities this weekend, so far, [facility] was sent referral, and [facility]. Addendum entered by Mendy Shaffer R.N. 01/19/22 15:13: Have not yet heard back from Darrius at [facility] to see if they can accept. Spoke to hospitalist, Dr. Zavala, for he was going to speak to patient's spouse. Let him know that many facilities have been attempted, and plan may be home if no accepting facilities. Hospitalist stated that he would like care management to continue to work on placement, for concerns of safe discharge and spouse being able to care for patient. has been caring for patient before. Since recent admission, patient has been working with O.T. and speech. No P.T. since patient is a hoier at baseline. Went ahead and called [facility] in [place] and left a message with admissions. Faxed over referral. Will await response. Left a message with Reyna at [facility], faxed over referral. Addendum entered by Mendy Shaffer R.N. 01/19/22 13:17: [facility] is full, but did speak to Darrius at [facility], she is in for [facility]. She will contact [facility] and see if they can possibly accept patient. Let her know that by Medicare standards, patient would be ready to discharge tomorrow. She will get back to this turnaround planner. Addendum entered by Mendy Shaffer R.N. 01/18/22 15:15: Cassandra at [facility] responded and has declined this patient. So far, [facility], [facility] [place] [facility] and [facility] are reviewing. Original Note: DCP Cont: Patient's spouse came by to see patient. He was requesting to have DPOA paperwork. Was able to give him the form for medical, he was requesting financial. Let him know that the medical POA is the only one available here currently. He did take the form, and let him know that it would need to get notarized as well. Discussed patient. Let him know that care management is working on getting skilled facility for patient, may be challenging, for her baseline is a hoier lift. Spouse stated, I don't know if I can take care of her, I don't have caregivers, and [facility]. Let him know that care management can continue to assist with getting her a skilled rehab, but most likely, not a correction care facility. Patient has already indicated, unsure if they can financially afford. He has been taking care of her at home with [facility], and have included BINDER FOLDER OPERATOR visits. Found out that patient is inpatient status as of yesterday, 01/17, due to MRI results. Updated April at [facility] [place]. She would be eligable for skilled by Saturday, 01/20. [facility] at [facility] is also reviewing, as well as [facility] and [facility]. P: DCP to continue to follow and will work on obtaining skilled rehab facilities as long as she can work with therapy. will [facility] with [facility]. Mendy Shaffer, RN/Paint Stock Clerk
--- NOTE | 2022-01-18 15:31 | ST.IPDYTX ---
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 Geothermal Field Technician had notified me earlier that pt was self-feeding breakfast. Nursing reported that pt was improved from yesterday. Treatment Liquids Trialed [place] Solids Trialed Puree,Dysphagia Mechanical Administration Type Tea Spoon,Cup Single Sip, Controlled Cup Sip,Straw,Self- Feeding Oral Strategies Upright at 90 degrees, Controlled Bite/Sip Size Pharyngeal Strategies Sitting Upright (90 deg),Small Bites and Sips Treatment Activities Pt greeted me as I entered the room. Pt talking more and able to answer some questions. Typical responses are yes/no /ok, one step at a time, We'll see. More alert and aware of her surroundings. PO trials of NTL, pudding, pudding with crumbled cracker mixed in it. Pt safely tolerated NTL without cough/ choke. No wet voicing. Pt was able to use a small diameter straw successfully. She swallowed NTL with straw and consecutive swallows. Pt was able to chew the crumbled cracker in the pudding with good mastication. No oral reside was observed. Will advance diet. The clinical swallowing evaluation cannot rule out silent aspiration. Instrumental assessment would be needed to fully determine the safety of swallowing. Assessment Patient Response to Treatment Good Assessment of Improvement Improved in swallowing, receptive and expressive language and level of alertness. Diet Recommendations Recommendations Upgrade Diet Order Liquids Order [place] Diet Order Dysphagia Mechanical Medication Recommendations As Tolerated,Whole in Carrier, Crushed in Carrier Additional Dietary Needs Encourage to Self-Feed Aspiration Precautions Recommended Precautions Upright at 90 Degrees,Small Bites/Sips,Lingual Sweep,Check for Pocketing,Liquids from Cup Treatment Plan Placement Recommendation after Discharge Longterm Facility,Home with Home Health Appropriate for Continued Therapy Yes Therapy Recommendations Monitor for silent aspiration - continues to be a risk factor Monitor for safety with current diet without s/sx aspiration - high temp, difficulty breathing Dysphagia Goals The pt will safely tolerate the least restrictive diet without s/sx aspiration to meet nutritional and hydration needs.
[2022-01-18] MEDS: CEFEPIME 1 GM in SODIUM CHLORIDE 0.9% 100 ML 200 ML IV (20:32)
[2022-01-18] MEDS: INSULIN GLARGINE 100 UNIT/ML 3ML PEN 20 UNIT SUBCUT (21:20)
[2022-01-19] VITALS (10 sets, daily range): BP systolic 123–155; BP diastolic 70–99; PULSE 82–119; RESP 12–23; TEMP 36.2; O2SAT 92–98
[2022-01-19] MEDS: HYDROCODONE/ACET 10/325 TABLET 1 TAB PO ×2 (03:11→13:26)
[2022-01-19 04:45] LABS: Add Manual Diff / Slide Review NO; Basophils Absolute Auto 100 /uL (0-100); Eosinophils Absolute Auto 100 /uL (0-450); Eosinophils Percent Auto 1.6 % (2-4); Hemoglobin 13.1 g/dL (12.0-16.0); Lymphocytes Absolute Auto 1200 /uL (1100-4500); Mean Corpuscular HGB Conc 31.9 % (30-36); Mean Corpuscular Hemoglobin 25.8 PG (26-34); Mean Corpuscular Volume 80.8 fL (80-100); Monocytes Absolute Auto 600 /uL (0-900); Monocytes Percent Auto 7.9 % (3-14); Neutrophils Absolute Auto 5600 /uL (1500-7000); Neutrophils Percent Auto 73.5 % (50-75); Platelet Count 344 X10^3/uL (150-400); Red Blood Cell Count 5.08 X10^6/uL (4.0-5.2); Red Cell Distribution Width 17.6 % (11.6-14.8); White Blood Cell Count 7.6 X10^3/uL (4.5-11.0)
[2022-01-19 06:28] LABS: INR 1.4 (0.9-1.3); Prothrombin Time 15.9 SECONDS (10.1-12.7)
[2022-01-19 06:42] LABS: Alanine Aminotransferase 22 IU/L (<35); Albumin 3.5 g/dL (3.5-5.0); Albumin Globulin Ratio 1.1 (1.0-2.8); Alkaline Phosphatase 105 U/L (38-126); Aspartate Aminotransferase 25 IU/L (14-36); Bilirubin Total 1.8 mg/dL (0.2-1.3); Blood Urea Nitrogen 24 mg/dL (7-17); Calcium 8.8 mg/dL (8.4-10.2); Carbon Dioxide 29 mmol/L (22-32); Chloride 103 mmol/L (98-107); Estimated Glomerular Filt Rate 56.8 mL/min (>60); Globulin 3.2 g/dL (1.7-4.1); Glucose 207 mg/dL (80-110); HEMOLYSIS < 15 (0-50); Potassium 3.7 mmol/L (3.4-5.1); Sodium 135 mmol/L (137-145); Total Protein 6.7 g/dL (6.3-8.2)
[2022-01-19] MEDS: INSULIN LISPRO 100 UNIT/ML 3ML VIAL SUBCUT ×4 (09:17→20:54)
[2022-01-19] MEDS: CEFEPIME 1 GM in SODIUM CHLORIDE 0.9% 100 ML 200 ML IV ×2 (09:18→19:52)
[2022-01-19] MEDS: FUROSEMIDE 40 MG TABLET PO (09:19)
[2022-01-19] MEDS: METOPROLOL ER 50 MG TABLET 75 MG PO ×2 (09:19→20:56)
[2022-01-19] MEDS: OXYBUTYNIN 5 MG TABLET PO ×2 (09:19→20:57)
[2022-01-19] MEDS: lamoTRIgine 25 MG CHEW TABLET 50 MG PO (09:19)
--- NOTE | 2022-01-19 10:50 | OT.IP.EVAL ---
Current Diagnoses Cerebral infarction, unspecified (01/17/22) Past Medical History (Last Reviewed 01/16/22 @ 19:14 by Dav Drake DO) Acute exacerbation of CHF (congestive heart failure) Atrial fibrillation with rapid ventricular response CHF exacerbation Chronic GERD Congestive heart failure COPD (chronic obstructive pulmonary disease) Depression Diabetes mellitus type 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 Essential (primary) hypertension Hemiparesis affecting right side as late effect of cerebrovascular accident History of CVA (cerebrovascular accident) Ischemic stroke Seizure Seizure disorder UTI (urinary tract infection) Ventricular tachycardia (paroxysmal) Occupational Therapy Inpatient Evaluation/Re-Eval M1 PT/OT-IP Prior Functional Status Start: 01/19/22 13:53 Freq: NEEDED Status: Active Protocol: Document 01/19/22 13:53 [facility] (Rec: 01/19/22 14:11 [facility] [id number]) Medical Review Prior Functional Status Mobility and Gait Pt is smita lift transfers at home. Called pt's and he states that for the past few month had needing more assist to sit upright and now mainly has been bed bound. Activities of Daily Living and IADL's Prior pt able to do eating and grooming on her own with set- up assist. Pt needing assist for all dressing, toileting, and bed baths. Pt a few months ago was able to sit up on her own after being hoyered to the [facility]. Social History Household Members spouse Living Arrangements House Number of Stairs To Enter/Railing? Ramp M2 OT-IP Current Condition Start: 01/19/22 13:53 Freq: Status: Active Protocol: Document 01/19/22 13:53 [facility] (Rec: 01/19/22 14:11 [facility] [id number]) Occupational Therapy Current Condition Current Condition Evaluation Date 01/19/22 Treatment Diagnosis Acute encephalopathy due to acute embolic CVA's Diagnosis Onset Date 01/16/22 M3 OT- IP Subjective and Pain Start: 01/19/22 13:53 Freq: Status: Active Protocol: Document 01/19/22 13:53 [facility] (Rec: 01/19/22 14:11 [facility] [id number]) OT- Subjective Occupational Therapy Visit Type Type Initial Evaluation Visit Start Time 10:25 Visit Stop Time 10:50 Total Visit Minutes 25 Occupational Therapy Visit Comments Patient Comments Attempted to do OT eval with pt. Patient/Caregiver Goals Pt's wanting pt to go to skilled rehab if able. M4 OT- IP ADL's Start: 01/19/22 13:53 Freq: Status: Active Protocol: Document 01/19/22 13:53 [facility] (Rec: 01/19/22 14:11 [facility] [id number]) OT ADL-Oral Care General Eval Oral Care Ability Maximum Assistance Areas of Assistance Brushing Teeth,Retrieving/Set- Up of Items Comments Oral Care Comments Pt needing assist to help brush her tongue and not able to follow commands to spit out the liquid from her mouth at this time. OT ADL-Dressing Comments OT Dressing Comments Pt is total assist OT ADL-Toileting Comments OT Toileting Comments Total assist OT ADL-Bathing Comments OT Bathing Comments Total assist M6 OT- IP Functional Cognition Start: 01/19/22 13:53 Freq: Status: Active Protocol: Document 01/19/22 13:53 [facility] (Rec: 01/19/22 14:11 [facility] [id number]) Cognitive Factors Limiting Selfcare Function Cognitive Ability Level of Alertness Alert Patient Orientation Name Attention Span Ability Capable of Focused Attention, Unable to Sustain Attention Ability to Follow Commands Able to Follow One Step Commands with Increased Time, Able to Follow One Step Commands with Repetition Cognitive Comments Cognitive Assessment Comments Pt able to respond to yes/no questions appropriately. Pt able to answer prior level of care however pt gave okay to have OT called her to clarify the details. Pt not willing to get up out of bed as feel too tired and not sure if she wants to do so tomorrow. Explained to pt if wanting to go to skilled rehab that she much be willing to work and get better. Pt's when called states to come later and talk to his to see if she is willing to get better or just giving up. OT- Vision and Hearing OT- Hearing Assessment OT- Hearing Assessment WFL OT- Vision Assessment Vision Assessment Comments Pt not able to see out of left eye as has cataracts. M9 OT- IP Assessment and Plan Start: 01/19/22 13:53 Freq: Status: Active Protocol: Document 01/19/22 13:53 [facility] (Rec: 01/19/22 14:11 [facility] [id number]) OT Summary Assessment and Plan Potential Rehabilitation Potential Poor Analytic Complexity at Evaluation High Summary OT Impairments Functional Cognition, Functional Mobility,Self- Feeding,Grooming Progress Towards Goals Slow Progress due to Medical Issues,Slow Progress due to Activity Tolerance,Slow Progress due to Cognition Assessment Summary Pt High complexity and having acute encephalopathy due to acute embolic CVA's. Pt has progressively needing more assist to sit at the edge the bed per in the past three months. Pt's would like for pt to go to skilled rehab to improve on sitting balance so able to use smita to get pt to the BSC versus hygiene while in bed. Pt not willing to get up today therefor unable to see how pt moves. At this time it is questionable if pt is a candidate for skilled rehab. However if pt is willing, it would be good to work on her sitting balance so able to get back to using the BSC which would be good form her hygiene and skin integrity. However home health can also work with the pt in the home setting. Goals OT-Other Goals Pt to be able to sit at the edge of the bed with CGA. ( Goal and days for goals will be modified when and if pt willing to get up) Days to Meet Goals 40 Frequency of Treatment Frequency Of Treatment Once a Day Treatment Plan OT Treatment Plan ADL Training,Functional Cognition Training,Functional Mobility,Patient/Family Education,Discharge Planning Discharge Recommendations OT Discharge Recommendations Home with 24/7 Assist Available,Home Health,SNF Rehab,Home vs SNF Transportation Needs at Discharge Stretcher/Ambulance
--- NOTE | 2022-01-19 13:11 | PM.PN.1 ---
Subjective Subjective Date Patient Seen: 01/19/22 Time Patient Seen: 13:11 Interval history: Much improved today, more verbose and patient denies complaints today. No chest pain shortness of breath, palpitations, nausea, vomiting, or abdominal pain. Exam Vital Signs (past 8 hours): - 01/19/22 08:30 01/19/22 09:19 01/19/22 09:49 Temperature 97.1 F L Pulse Rate 83 99 H Respiratory Rate 22 Blood Pressure 123/93 H 123/93 H Pulse Oximetry 98 92 Oxygen Delivery Method Room Air Oxygen Flow Rate 0 Narrative Exam Narrative: General:? Patient is a chronically ill-appearing female, in no acute distress HEENT:? Normocephalic, atraumatic, extraocular muscles intact, oral pharynx is clear and mucous membranes are moist. Neck: supple and symmetric, trachea is midline, no cervical adenopathy. - JVD Chest:? Normal AP diameter and contour without kyphoscoliosis, no tachypnea, equal chest rise bilaterally. Lungs:? bibasilar rhonchi without wheezing. Cardio:?irregularly irregular with normal rate no murmur or rubs. Abdomen: S NT ND. Musculoskeletal:?R hemiparesis with contraction. Extremities: trace peripheral edema, no joint effusions. No cyanosis or clubbing. Skin:? Pale,? Warm. Neuro:? alert, responds appropriately today, slight slurred speech but much improved. R facial asymmetry. Left side no weakness. Objective Labs Result Diagrams: 01/19/22 04:03 01/19/22 04:03 Labs: Laboratory Results - last 24 hr 01/19/22 01/19/22 01/19/22 04:03 04:03 04:03 WBC 7.6 RBC 5.08 Hgb 13.1 Hct 41.0 MCV 80.8 MCH 25.8 L MCHC 31.9 RDW 17.6 H Plt Count 344 Neut % (Auto) 73.5 Lymph % (Auto) 16.0 L [place] % (Auto) 7.9 Eos % (Auto) 1.6 L Baso % (Auto) 1.0 Neut # (Auto) 5600 Lymph # (Auto) 1200 [place] # (Auto) 600 Eos # (Auto) 100 Baso # (Auto) 100 PT 15.9 H INR 1.4 H Sodium 135 L Potassium 3.7 Chloride 103 Carbon Dioxide 29 BUN 24 H Creatinine 0.96 Estimated GFR 56.8 L BUN/Creatinine Ratio 25.0 H Glucose 207 H D Calcium 8.8 Magnesium 2.0 Total Bilirubin 1.8 H AST 25 ALT 22 Alkaline Phosphatase 105 Total Protein 6.7 Albumin 3.5 Globulin 3.2 Albumin/Globulin Ratio 1.1 [facility] Medical History Acute exacerbation of CHF (congestive heart failure) Atrial fibrillation with rapid ventricular response CHF exacerbation Chronic GERD Congestive heart failure COPD (chronic obstructive pulmonary disease) Depression Diabetes mellitus type 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 Essential (primary) hypertension Hemiparesis affecting right side as late effect of cerebrovascular accident History of CVA (cerebrovascular accident) Ischemic stroke Seizure Seizure disorder UTI (urinary tract infection) Ventricular tachycardia (paroxysmal) Social History household members: spouse Smoking Status: Current every day smoker alcohol intake: current Assessment & Plan Assessment & Plan narrative: 1. 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 ?- CT and CT angiogram without any acute pathologies initially. MRI showed multiple old and new infarcts in various locations of the brain consistent with embolic source. MRI also showed area of hemorrhagic conversion. Repeat head CT at 6 hours from MRI did not show bleeding. Given stable neuro exam likely stable bleeding. Family is not interested in neurosurgical intervention, and patient agrees. ?- continue antibiotics for acute cystitis ?- OT and speech to continue. Tello lift at baseline per prior notes. PT signed off. ?- less likely seizure at this time. ?- after prolonged goals of care discussion with the family, patient would not want a feeding tube if needed, would like patient to go to a rehab if she qualifies given her increase in needs at this time. 2. Acute cystitis ?- previous cystitis, but reports patient did not complete antibiotics. ?- continued ceftriaxone x3 days. 3. Atrial fibrillation with rapid ventricular response, present on admission.? Active.? -increased home metoprolol to 75 mg BID, rate now much improved. Initially was on diltiazem infusion. -hold coumadin for at least 2 weeks given hemorrhagic conversion. INR 1.9 on day of bleeding, no need for FFP or Kcentra given INR improvement and improving neurological exam. -coumadin likely contributed toward hemorrhagic conversion. 4. acute on chronic systolic heart failure, present on admission.? Active.? -the CHF exacerbation is likely related to the rapid ventricular response and whatever triggered her atrial fibrillation.? -echocardiogram to clarify current cardiac function -now diuresis appears complete. -continue oral furosemide 40 mg daily to maintain euvolemia. Suspect non-compliance at home so may not need bumex on discharge. 5. Diabetes mellitus type 2, present on admission.? Active.? -uncontrolled sugars in 400s yesterday. Not entirely clear why. Much improved today. -started lantus 20 units, continue sliding scale. -on 70/30 mix at home. 6. Prior CVA with Right hemiparesis/right hemineglect, present on admission.? Chronic.? -continue risk factor control 7.?Hypertension, present on admission.? Chronic -Amlodipine and Metoprolol, may need to increase. 8. Seizures, present on admission. Chronic. -Lamotrigine 9. Depression, present on admission.? Chronic. -Fluoxetine Code: DNR based on prior discussions documented, surrogate is listed as spouse. POLST states comfort measures only but this was not what the family currently desires. Dispo: Patient and family would like SNF on discharge if she can qualify. May need home with home health. I have utilized all available immediate resources to obtain, update, or review the patient's current medications. COVID-19 COVID-19 status: Negative Time Spent With Patient Critical Care time: I spent a total of [] minutes of critical care time on this patient's care today; this time is exclusive of procedural time. Quality VTE Deep Vein Thrombosis/Pulmonary Embolism Present on Admission: No
[2022-01-19] MEDS: INSULIN GLARGINE 100 UNIT/ML 3ML PEN 20 UNIT SUBCUT (20:55)
[2022-01-20] VITALS: BP 129/98; PULSE 96; RESP 24; TEMP 36.1; O2SAT 96
[2022-01-20 04:00] VITALS: BP 141/100; PULSE 94; RESP 24; TEMP 36.4; O2SAT 98
[2022-01-20 05:48] VITALS: BP 145/96
[2022-01-20 08:00] VITALS: BP 144/97; PULSE 91; RESP 22; TEMP 36.7; O2SAT 98
--- NOTE | 2022-01-20 08:14 | P.DS_ITS ---
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 History is obtained from EMR and patient's spouse.? According to her , this morning he came out and the patient was sitting and seemingly fairly normal.? He bruised some coffee in came back and she looked like she was sleeping.? Later in the morning he came out and he tried to wake her up but she was extremely confused and did not know where she was or the date.? brought her in at that point.? He further states that the patient only takes about half of her medications and nor is the rest, and admits that there is two doses of un-taken metoprolol at home currently.? He thinks that she is taking her seizure medication however.? He expresses concern about her increasing needs for care recently, as well as frequent emergency and hospital visits over the past month or 2. In the emergency room, the patient was noted to be in fast atrial fibrillation with rapid ventricular response.? She had a mild response to diltiazem infusion.? CT of her head without contrast did not show any acute abnormalities, neither did a CT angiogram of her head and neck though there is 80% stenosis of her right internal carotid artery.? Chest x-ray showed a mild interstitial predominance, without focal consolidation as interpreted by me.? Laboratory jimena luation showed an unremarkable CBC, subtherapeutic INR at 1.6.? Chemistries showed a mild hyponatremia with sodium of 134, glucose of 200, lactate of 2.2, proBNP 6230, troponin at 0.012.? Procalcitonin was negative at 0.04.? Urinalysis showed 10-30 rbc's and wbc's with positive leuk esterase consistent with possible infection.? Urine was sent for culture.? COVID-19 testing was negative. Discharge Providers Provider Date of admission: 01/17/22 14:39 Discharge Date: 01/20/22 Primary care physician: Eric Juarez MD Consults: 01/16/22 16:05 Consult to Dietitian, Adult Routine Comment: Reason For Exam: assessed high risk via MNA 01/16/22 16:30 Consult to Occupational Therapy Evaluate & Treat Comment: Physician Instructions: Evaluate and treat Consult to Speech Therapy Evaluate & Treat Comment: Physician Instructions: Evaluate and treat Discharge provider: Johana Christina MD Summary Hospital Course Hospital Course: 1. 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 ?- MRI showed multiple old and new infarcts in various locations of the brain consistent with embolic source. MRI also showed area of hemorrhagic conversion. Repeat head CT at 6 hours from MRI did not show bleeding. ?- OT and speech to continue. Tello lift at baseline per prior notes. PT signed off. ?- after prolonged goals of care discussion with the family, patient would not want a feeding tube if needed, would like patient to go to a rehab if she qualifies given her increase in needs at this time. 2. Acute E coli urinary tract infection -completed 5 days of antibiotics with ceftriaxone/cefepime. Culture is resis tant to ceftriaxone. 3. Atrial fibrillation with rapid ventricular response, present on admission.? Active.? -increased home metoprolol to 75 mg BID, rate now much improved. Initially was on diltiazem infusion. -hold coumadin for at least 2 weeks given hemorrhagic conversion. INR 1.9 on day of bleeding, no need for FFP or Kcentra given INR improvement and improving neurological exam. -coumadin likely contributed toward hemorrhagic conversion. 4. acute on chronic systolic heart failure, present on admission.? Active.? -the CHF exacerbation is likely related to the rapid ventricular response and whatever triggered her atrial fibrillation.? -echocardiogram apparently requested/ordered but not done so far -discharge on home dose of bumetanide. 5. Diabetes mellitus type 2, present on admission.? Active.? -blood sugars in the 400s on admission. -started lantus 20 units, stopped 70/ home dose. 6. Prior CVA with Right hemiparesis/right hemineglect, present on admission.? Chronic.? -continue risk factor control 7.?Hypertension, present on admission.? Chronic -Amlodipine, hydralazine and increased metoprolol dose 8. Seizures, present on admission. Chronic. -Lamotrigine dose increased 9. Depression, present on admission.? Chronic. -Fluoxetine continued Code: DNR based on prior discussions documented, surrogate is listed as spouse. Status at Discharge Cognitive/behavioral status at discharge: confused Functional status at discharge: wheelchair bound Overall status at discharge: patient is not back to baseline Time Spent with Patient Time spent: Greater than 30 minutes Exam Vital Signs (past 8 hours): - 01/20/22 04:00 01/20/22 05:48 01/20/22 08:00 Temperature 97.5 F L 98.1 F Pulse Rate 94 H 91 H Respiratory Rate 24 22 Blood Pressure 141/100 H 145/96 H 144/97 H Pulse Oximetry 98 98 Oxygen Delivery Method Room Air Oxygen Flow Rate 0 Narrative Exam Narrative: She is quite confused Heart is irregularly irregular No murmur Lungs are clear to auscultation bilaterally Extremities have no ankle edema There is a dense right hemiparesis with significant expressive aphasia. Objective Labs Result Diagrams: 01/19/22 04:03 01/19/22 04:03 [facility] Medical History Acute exacerbation of CHF (congestive heart failure) Atrial fibrillation with rapid ventricular response CHF exacerbation Chronic GERD Congestive heart failure COPD (chronic obstructive pulmonary disease) Depression Diabetes mellitus type 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 Essential (primary) hypertension Hemiparesis affecting right side as late effect of cerebrovascular accident History of CVA (cerebrovascular accident) Ischemic stroke Seizure Seizure disorder UTI (urinary tract infection) Ventricular tachycardia (paroxysmal) Social History household members: spouse Smoking Status: Current every day smoker alcohol intake: current Discharge Plan Discharge Plan Patient Disposition: SNF Transfer to: [facility] Under care of provider: Facility Magnetic Resonance Imaging Coordinator Discharge orders & Medications Prescriptions: New Lantus Solostar U-100 Insulin 100 unit/mL (3 mL) Insulin Pen 20 unit SUBCUT BEDTIME Qty: 15 0RF lamotrigine [Lamictal] 25 mg Tablet 50 mg PO DAILY Qty: 60 0RF metoprolol succinate 50 mg Tablet Extended Release 24 Hr 75 mg PO BID Qty: 90 0RF Continued nitroglycerin [Nitrostat] 0.4 MG tablet, sublingual 0.4 mg Sublingual PRN PRN (Reason: Chest Pain) Qty: 0 0RF fluoxetine [Prozac] 40 mg capsule 40 mg PO DAILY 0RF amlodipine [Norvasc] 10 mg tablet 10 mg PO DAILY 0RF hydralazine 50 mg tablet 50 mg PO BID 0RF bumetanide 1 mg Tablet 0.5 mg PO DAILY Qty: 30 0RF oxybutynin chloride 5 mg Tablet 5 mg PO BID Qty: 30 0RF hydrocodone-acetaminophen 10-325 mg Tablet 1 tab PO Q6H PRN (Reason: Pain (Scale Score 4-6)) Qty: 35 0RF lorazepam [Ativan] 0.5 mg tablet 0.5 mg PO BEDTIME PRN (Reason: anxiety) Qty: 30 0RF Discontinued lamotrigine [Lamictal] 25 MG tablet 25 mg PO DAILY Qty: 0 0RF warfarin 4 mg tablet 4 mg PO 3XW 0RF Rx Instructions: M,W,F Novolin 70/30 U-100 Insulin 100 unit/mL (70-30) suspension 25 unit SUBCUT DAILY 0RF Rx Instructions: Daily at 0900 metoprolol succinate 50 mg Tablet Extended Release 24 Hr 50 mg PO BID Qty: 60 0RF warfarin 4 mg tablet 8 mg PO 4XW 0RF Rx Instructions: T, TH, S, S Follow up/Referrals: Eric Juarez MD [Primary Care Provider] - Diet/Activity/Treatments Diet: Carb-consistent/Diabetic Liquid consistency: Normal/Thin Food texture: Regular Special Rehabilitation Services Rehab type: Physical therapy, Occupational therapy and Speech therapy Discharge Data Primary Care Provider: Eric Juarez Quality VTE Deep Vein Thrombosis/Pulmonary Embolism Present on Admission: No
[2022-01-20] MEDS: INSULIN LISPRO 100 UNIT/ML 3ML VIAL SUBCUT (08:15)
[2022-01-20] MEDS: FUROSEMIDE 40 MG TABLET PO (08:18)
[2022-01-20] MEDS: HYDROCODONE/ACET 10/325 TABLET 1 TAB PO (08:18)
[2022-01-20] MEDS: OXYBUTYNIN 5 MG TABLET PO (08:18)
[2022-01-20] MEDS: METOPROLOL ER 50 MG TABLET 75 MG PO (08:18)
[2022-01-20] MEDS: lamoTRIgine 25 MG CHEW TABLET 50 MG PO (08:18)
[2022-01-20] MEDS: CEFEPIME 1 GM in SODIUM CHLORIDE 0.9% 100 ML 200 ML IV (08:20)
--- NOTE | 2022-01-20 09:41 | CM.DPC ---
DCP Discharge SNF Per MD, pt is medically stable to d/c to SNF today. SW spoke to OT and RN and confirmed safest mode of transport is BLS as pt is smita at baseline and is just now much more alert and oriented but has not safely been out of bed. DENNIS called pt's spouse and updated on d/c and acceptance at [facility] and explained that [facility], [facility], [facility] cannot accept or no openings at this time and only accepting SNF is [facility] and therefore spouse is agreeable with [facility] even though its farther from home in [place]. Spouse had also declined referral to [facility]. Spouse will be bedside prior to d/c today to SNF. SW attempted to discuss LTC options with spouse via phone as he had questions regarding coverage for [facility] under insurance but then spouse stopped SW and stated he does not have the funds for that right now and plan is home after SNF anyways and cut the conversation brief stating he needed to get ready to drive in to visit pt prior to d/c. DENNIS called [facility] and updated on discharge orders and recommendation of BLS transport for safety and so they could cancel [facility]. [facility] confirms they can accept today and agreeable with 1200ish transport time and no updated COVID swab needed. SW called [facility] and they can transport at 1220 today to [facility] and SW completed BLS form and attached facesheet and updated scrum project manager, MD, CHIEF RADIOLOGIC TECHNOLOGIST, and RN. DENNIS faxed [facility], med rec, script, COVID vax copy and COVID swab from 01/16/22 and discharge summary to [facility] to review. Plan: Patient to d/c to [facility] SNF via [facility] BLS transport today at 1220 prior to safe return home with spouse. BRI Esqueda
[2022-01-20 09:57] VITALS: BP 144/97; PULSE 78
--- NOTE | 2022-01-23 17:19 | SLP.IPNOTE ---
01/19/22 Did not see pt after the 2 attempts in the morning
== END 2022-01-20 12:30 | DRG 64 ==
LOC: ED 13:42 → AC 13:52 → ICU 01-17 10:33 → AC 01-22 07:59 → ICU 01-22 07:59
PROVIDERS: Admitting Provider Internal Medicine; Emergency Provider Emergency Medicine; PCP Internal Medicine; Referring Provider Emergency Medicine; Visit Provider Internal Medicine
DX: I63.412 Cerebral infarction due to embolism of left middle cerebral artery (principal); I61.8 Other nontraumatic intracerebral hemorrhage; I50.23 Acute on chronic systolic (congestive) heart failure; G93.49 Other encephalopathy; I69.951 Hemiplegia and hemiparesis following unspecified cerebrovascular disease affecting right dominant side; R41.4 Neurologic neglect syndrome; N30.00 Acute cystitis without hematuria; Z16.19 Resistance to other specified beta lactam antibiotics; R47.01 Aphasia; I48.91 Unspecified atrial fibrillation; I11.0 Hypertensive heart disease with heart failure; B96.20 Unspecified Escherichia coli [E. coli] as the cause of diseases classified elsewhere; F17.210 Nicotine dependence, cigarettes, uncomplicated; G40.909 Epilepsy, unspecified, not intractable, without status epilepticus; F32.A Depression, unspecified; E11.65 Type 2 diabetes mellitus with hyperglycemia; Z20.822 Contact with and (suspected) exposure to COVID-19; Z79.4 Long term (current) use of insulin; Z66 Do not resuscitate
CPT/HCPCS: 36415; 70450; 70496; 70498; 70551; 71045; 80053; 80320; 81001; 82550; 82947; 82962; 83605; 83690; 83735; 83880; 84145; 84484; 85025; 85610; 85730; 87040; 87086; 87635; 87797; 92610; 96365; 96366; 96368; 96376; 97167; 99285; 99291; C9803; G0378; J0692; J0696; J1815; J1940